=== PATIENT | male | born 1980 | race Caucasian/White ===

== ENCOUNTER 2021-03-20 13:56 | Outpatient (CLI) | payer OTHER, SELFPAY ==
--- NOTE | ~2021-03-20 | MR_ITS ---
EXAMINATION: MR knee LT wo con DATE: 03/20/2021 14:58 INDICATION: Left knee pain. TECHNIQUE: Magnetic resonance imaging (MRI) of the left knee was performed without intravenous contra st. Sequences included axial PD-weighted FS FSE, coronal PD-weighted FSE and PD-weighted FS FSE, sagi ttal PD-weighted FSE, and sagittal T2-weighted FS FSE. COMPARISON: Left knee radiographs 03/03/2021 FINDINGS: Medial compartment: There is a complex tear of posterior horn of medial meniscus. There is partial-thickness cartilage lo ss of tibial condyle, deep at the posterior articular surface where there is mild subchondral edema-l tay marrow signal intensity. There is partial-thickness cartilage loss of femoral condyle, deep at th e central articular surface where there is mild subchondral edema-like marrow signal intensity. There are tiny marginal osteophytes. Lateral compartment: There is a complex tear of body and posterior horn of lateral meniscus. There is partial-thickness ca rtilage loss of tibial condyle, deep at the central and posterior articular surface where there is mi ld subchondral edema-like marrow signal intensity. There is partial-thickness cartilage loss of femor al condyle, deep at the central articular surface where there is moderate subchondral edema-like el ow signal intensity. There are tiny marginal osteophytes. Patellofemoral compartment: There is cartilage surface regularity of patellar medial facet. There is partial-thickness cartilage loss of trochlea, deep at the central articular surface. There are tiny marginal osteophytes. Ligaments and tendons: There is a complete tear of anterior cruciate ligament. Posterior cruciate ligament is intact. Medial collateral ligament and lateral collateral ligament complex are intact. There is mild patellar tendi nopathy. Fluid: There is a small knee joint effusion. There is trace fluid in a Montes's cyst. IMPRESSION: 1. Moderate tricompartmental chondrosis. 2. Tears of medial and lateral menisci. 3. Complete tear of anterior cruciate ligament. 4. Small knee joint effusion. Reviewed, dictated and finalized at location A.
== END 2021-03-20 13:57 | disposition home or self-care (01) ==
PROVIDERS: PCP Internal Medicine; Visit Provider Nurse Practitioner Family
DX: M25.462 Effusion, left knee (principal); S83.242A Other tear of medial meniscus, current injury, left knee, initial encounter; S83.512A Sprain of anterior cruciate ligament of left knee, initial encounter; S83.282A Other tear of lateral meniscus, current injury, left knee, initial encounter; X58.XXXA Exposure to other specified factors, initial encounter
CPT/HCPCS: 73721

== ENCOUNTER 2021-06-17 08:41 | Outpatient (CLI) | payer OTHER, SELFPAY ==
--- NOTE | 2021-06-17 09:00 | ECG_ITS ---
Measurements Intervals [place] Rate: 44 P: 52 MT: 213 QRS: 31 QRSD: 113 T: 32 QT: 414 QTc: 357 Interpretive Statements SINUS BRADYCARDIA WITH FIRST DEGREE AV BLOCK INTRAVENTRICULAR CONDUCTION DELAY NONSPECIFIC ST ELEVATION IN ANTERIOR LEADS BASELINE ARTIFACT- II, III, AVF ABNORMAL ECG Electronically Signed On 06-17-2021 8:59:35 CDT by Hever Rome D.O.
== END 2021-06-17 08:42 | disposition home or self-care (01) ==
LOC: ANHSURGERY 08:46
PROVIDERS: PCP Internal Medicine; Visit Provider Orthopaedic Surgery
DX: Z87.891 Personal history of nicotine dependence (principal); Z01.818 Encounter for other preprocedural examination; I45.9 Conduction disorder, unspecified; I44.0 Atrioventricular block, first degree
CPT/HCPCS: 93005

== ENCOUNTER 2021-06-17 10:48 | Outpatient (CLI) | payer OTHER, SELFPAY ==
--- NOTE | 2021-06-17 11:00 | ECG_ITS ---
Measurements Intervals [place] Rate: 44 P: 60 OR: 205 QRS: 64 QRSD: 107 T: 47 QT: 415 QTc: 359 Interpretive Statements SINUS BRADYCARDIA WITH FIRST DEGREE AV BLOCK ABNORMAL ECG Electronically Signed On 06-17-2021 12:24:44 CDT by Hever Rome D.O.
[2021-06-17 11:05] LABS: Basophils Percent Auto 0.5 % (0.2-1.2); Eosinophils Absolute Auto 0.4 K/mm3 (0-0.3); Eosinophils Percent Auto 9.3 % (0-4.4); Hematocrit 41.1 % (42.0-52.0); Hemoglobin 13.6 g/dL (14.0-18.0); Immature Granulocyte Absolute 0.01 K/mm3 (0.00-0.031); Immature Granulocyte Percent A 0.3 % (0-0.5); Lymphocytes Absolute Auto 1.36 K/mm3 (0.9-3.2); Lymphocytes Percent Auto 34.1 % (18.3-44.2); Mean Corpuscular HGB Conc 33.1 g/dl (32-36); Mean Corpuscular Hemoglobin 29.3 pg (26-34); Mean Corpuscular Volume 88.6 fl (80-100); Mean Platelet Volume 10.4 fl (7.4-10.4); Monocytes Absolute Auto 0.5 K/mm3 (0.1-0.6); Monocytes Percent Auto 11.3 % (2.6-8.5); Neutrophils Absolute Auto 1.8 K/mm3 (1.3-6.7); Neutrophils Percent Auto 44.5 % (45.5-73.1); Platelet Count Result 178 k/mm3 (150-375); Red Blood Count 4.64 M/mm3 (4.6-6.20)
[2021-06-17 11:25] LABS: Alanine Aminotransferase 25 U/L (4-50); Albumin Level 4.1 g/dL (3.5-5.1); Alkaline Phosphatase 55 U/L (38-126); Anion Gap 9 mmol/L (8-16); Aspartate Amino Transferase 29 U/L (17-59); Bilirubin,Total 0.6 mg/dL (0.2-1.3); Blood Urea Nitrogen 17 mg/dL (9-20); Calcium 9.8 mg/dL (8.4-10.2); Carbon Dioxide 27 mmol/L (22-30); Chloride 104 mmol/L (98-107); Estimated Glomerular Filt Rate > 60; Glucose 67 mg/dL (65-110); Potassium 4.4 mmol/L (3.4-5.0); Sodium 140 mmol/L (137-145)
== END 2021-06-17 10:49 | disposition home or self-care (01) ==
PROVIDERS: PCP Internal Medicine; Visit Provider Nurse Practitioner
DX: Z01.818 Encounter for other preprocedural examination (principal); R94.31 Abnormal electrocardiogram [ECG] [EKG]; I44.0 Atrioventricular block, first degree
CPT/HCPCS: 36415; 80053; 85025; 93005

== ENCOUNTER → 2021-06-18 00:20 | Outpatient (CLI) | payer OTHER, SELFPAY ==
[2021-06-18 16:43] LABS: SARS-CoV-2 RNA PCR Negative
== END ==
PROVIDERS: PCP Internal Medicine; Visit Provider Orthopaedic Surgery
DX: Z01.812 Encounter for preprocedural laboratory examination (principal); Z20.822 Contact with and (suspected) exposure to COVID-19
CPT/HCPCS: C9803; U0003; U0005

== ENCOUNTER → 2022-10-11 16:29 | Outpatient (CLI) | payer OTHER, SELFPAY ==
--- NOTE | ~2022-10-11 | XR_ITS ---
XR_[id number]_CR DATE: 10/11/2022 17:09 INDICATION: Left arm anesthesia/numbness. No injury. TECHNIQUE: AP, open-mouth, lateral, swimmer views COMPARISON: None FINDINGS: C1 and C2 are normally aligned and the odontoid process is intact. No fracture or dislocation or locked facet or prevertebral soft tissue swelling. There is moderate degenerative disc disease at C4-5 and C5-6 with posterior spurring at each of these levels, especially C5-6. Moderately severe degenerative disc disease and posterior spurring at C6-7. Moderate degenerative disease at C7-T1. There is uncovertebral joint spurring particularly on the left at C5-6 and bilaterally at C6-7. IMPRESSION: Multilevel degenerative disc disease Uncovertebral joint spurring at C5-6 on the left and bilaterally at C6-7, with expected corresponding encroachment upon the left C6 and bilateral C7 neural foramina Reviewed, dictated and finalized at Location A. Reviewed, dictated and finalized at location A. CUTTER IMPRESSION: Multilevel degenerative disc disease Uncovertebral joint spurring at C5-6 on the left and bilaterally at C6-7, with expected corresponding encroachment upon the left C6 and bilateral C7 neural fo ramina
== END ==
PROVIDERS: PCP Clinical Nurse Specialist; Visit Provider Clinical Nurse Specialist
DX: R20.0 Anesthesia of skin (principal); M50.30 Other cervical disc degeneration, unspecified cervical region
CPT/HCPCS: 72040

== ENCOUNTER 2025-03-26 00:55 | Inpatient (IN) | payer OTHER, SELFPAY ==
[2025-03-26] VITALS (49 sets, daily range): BP systolic 93–137; BP diastolic 67–95; PULSE 65–112; RESP 18–25; TEMP 36–37.9; O2SAT 97–100; BMI 25.0
--- NOTE | ~2025-03-26 | XR_ITS ---
Portable chest x-ray Comparison: 03/29/2025 Clinical History: Respiratory failure Findings: Endotracheal tube and NG tube are in satisfactory positions. There is bibasilar pulmonary edema/atelectasis versus possibly pneumonia. Cardiomediastinal silhouette is stable. Bones and soft tissues are unremarkable. Impression: Basilar pulmonary edema/atelectasis versus possibly pneumonia. Correlate clinically. Support tubes, as above. Reviewed, dictated and finalized at [facility]. Impression: Basilar pulmonary edema/atelectasis versus possibly pneumonia. Correlate clinic ally. Support tubes, as above.
--- NOTE | ~2025-03-26 | XR_ITS ---
Portable chest x-ray Comparison: 03/30/2025 Clinical History: Respiratory failure Findings: Endotracheal tube and NG tube are in satisfactory positions. There is haziness at the left lung base. Right lung clear. Cardiomediastinal silhouette is stable. Bones and soft tissues are unr emarkable. Impression: Left basilar pulmonary edema/atelectasis versus pneumonia. Support tubes, as above. Reviewed, dictated and finalized at location . Impression: Left basilar pulmonary edema/atelectasis versus pneumonia. Support tubes, as above.
--- NOTE | ~2025-03-26 | XR_ITS ---
Portable chest x-ray Comparison: 03/27/2025 at 1:16 AM Clinical History: Respiratory failure Findings: Endotracheal tube and NG tube are in satisfactory positions. Probable mild haziness at the left lung base. Right lung clear. Cardiomediastinal silhouette is stable. Bones and soft tissues ar e unremarkable. Impression: Mild haziness left lung base, nonspecific. Correlate for minimal pulmonary edema or pneumonia. Support tubes, as above. Reviewed, dictated and finalized at location . Impression: Mild haziness left lung base, nonspecific. Correlate for minimal pulmonary leoncio a or pneumonia. Support tubes, as above.
--- NOTE | ~2025-03-26 | XR_ITS ---
Upright portable view of the abdomen Clinical history: NG tube placement Findings: NG tube tip is just above the GE junction. Further advancement by at least 13 cm recommende d. Bowel gas pattern is nonspecific. No evidence for obstruction or free air. No abnormal mass lesion or calcification is seen. Osseous structures are intact. Impression: NG tube tip above the GE junction. Further advancement by at least 13 cm recommended. Reviewed, dictated and finalized at location . Impression: NG tube tip above the GE junction. Further advancement by at least 13 cm recomm ended.
--- NOTE | ~2025-03-26 | CT_ITS ---
Non-contrast Head CT History: Encephalopathy COMPARISON: 03/26/2025 Technique: Axial non-contrast imaging of the brain was performed. Dose reduction technique was used on this scan by utilizing automated exposure control and iterative reconstruction technique. The dose -length product (DLP) was 681.00 mGy-cm. Findings: No acute intracranial abnormality seen. Stable encephalomalacia in the anterior left fronta l lobe with overlying postoperative change of left frontal bone. The ventricles and subarachnoid spa anthony are normal in size. There is bilateral ethmoid and maxillary sinus disease. The remaining visuali zed paranasal sinuses and mastoid air cells are clear. Impression: No acute abnormality. No change from prior exam. 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 Overlying postoperative change of the frontal bones. Reviewed, dictated and finalized at [facility]. Impression: No acute abnormality. No change from prior exam. Stable chronic encephalomalacia of the anterior left frontal lobe, either postt raumatic or postsurgical in nature. Overlying postoperative change of the front al bones.
--- NOTE | ~2025-03-26 | XR_ITS ---
XR chest 1V portable Ordering provider: Luis Fernando Mars History: 44 years Male with . Acute respiratory failure on mechanical ventilatio . Comparison: March 28, 2025 FINDINGS: MEDIASTINUM endotracheal tube is seen 4.5 cm above the aubree. Nasogastric tube is seen extending to the stomach.: The cardiac silhouette is not enlarged. Congestive katy. LUNGS: No effusions or pneumothorax. Opacification the left lung base is seen suggestive of atelectasis versus pneumonia. OTHER: No free air under the diaphragm. Degenerative changes of the spine. IMPRESSION: Left basilar atelectasis versus pneumonia. Reviewed, dictated and finalized at location A.
--- NOTE | ~2025-03-26 | XR_ITS ---
MODIFIED ESOPHAGRAM HISTORY: Aspiration TECHNIQUE: Modified barium esophagram was performed on 04/02/2025. I administered fluoroscopy and perfo rmed the exam with speech pathologist. Patient was seated for lateral fluoroscopic imaging for inges tion of thin liquids, pudding, solids and quantified amounts, followed by thin liquids in uncontrolle d amounts. This was recorded on tape. A single fluoroscopic spot image was also recorded. The DAP for this procedure was 1.2 Gycm2. The amount of fluoroscopy time used during this procedure was 2.2 tony russell. FINDINGS: Oral stage: Adequate function. Pharyngeal stage: Reduced laryngeal elevation and adduction. Reduced tongue base retraction and phary ngeal squeeze. There is vallecular, piriform sinus and pharyngeal wall residue. Laryngeal penetration with aspiration of both thin and thick liquids. Cervical/esophageal stage: Adequate function. IMPRESSION: Pharyngeal dysphagia with laryngeal penetration and aspiration. Please correlate with sp eech pathologist findings and specific feeding recommendations. Reviewed, dictated and finalized at location A. IMPRESSION: Pharyngeal dysphagia with laryngeal penetration and aspiration. Pl ease correlate with speech pathologist findings and specific feeding recommenda tions.
--- NOTE | ~2025-03-26 | CT_ITS ---
CTA brain carotid Ordering provider: Marcin Raza MD History: . AMS . Comparison: March 27, 2025 Technique: CT angiogram head and neck was performed following timed intravenous injection of contrast . Thin slice axial images and reformatted coronal images were obtained. Three dimensional reformatted images of the brain were also obtained using a [employer] workstation. Radiation reduction technique ut ilized.The dose-length product was 1760.93 mGy-cm. 100 mL Omnipaque 350 was given IV. FINDINGS: HEAD: --ANTERIOR AND MIDDLE CEREBRAL ARTERIES AND BRANCHES: Normal caliber and contour. --INTERNAL CAROTID ARTERIES: Normal caliber and contour. --BASILAR ARTERY AND BRANCHES: Normal caliber and contour. No atheromatous disease. --POSTERIOR CEREBRAL ARTERIES: Normal caliber and contour --POSTERIOR COMMUNICATING ARTERIES: Not visualized which is probably related to congenital absence or small size. --ANEURYSM: None visualized. --BRAIN: Encephalomalacia in the left frontal lobe is unchanged. --BONES AND SUPERFICIAL SOFT TISSUES: Postoperative changes in the frontal bones. --PARANASAL SINUSES AND MASTOIDS: Bilateral frontal and maxillary sinus disease is noted. NECK: --RIGHT CERVICAL CAROTID SYSTEM: Normal caliber and contour. Percent stenosis per NASCET criteria is 0%. No carotid dissection. Otherwise, no significant atheromatous disease or stenosis of the cervica l carotid system. --LEFT CERVICAL CAROTID SYSTEM: Normal caliber and contour. Percent stenosis per NASCET criteria is 0%. No carotid dissection. Otherwise, no significant atheromatous disease or stenosis of the cervical carotid system. --VERTEBRAL ARTERIES: Normal caliber and contour. --VISUALIZED AORTIC ARCH AND BRANCHING VESSELS: Normal caliber and contour. No significant atheromato us disease. --SOFT TISSUES: Left lower lobe lung pneumonia is seen --CERVICAL SPINE: Age appropriate degenerative changes. IMPRESSION: 1. Normal CTA head and neck. Percent stenosis per NASCET criteria is 0%. 2. Left lower lobe superior segment pneumonia. Further evaluation advised. 3. Left frontal encephalomalacia with postoperative changes in the frontal bones. Reviewed, dictated and finalized at location A. IMPRESSION: 1. Normal CTA head and neck. Percent stenosis per NASCET criteria is 0%. 2. Left lower lobe superior segment pneumonia. Further evaluation advised. 3. Left frontal encephalomalacia with postoperative changes in the frontal bon es.
--- NOTE | ~2025-03-26 | XR_ITS ---
Upright portable view of the abdomen Clinical history: NG tube placement Findings: NG tube in satisfactory position. Bowel gas pattern is nonspecific. No evidence for obstruc tion or free air. No abnormal mass lesion or calcification is seen. Osseous structures are intact. Impression: NG tube in satisfactory position. Reviewed, dictated and finalized at location . Impression: NG tube in satisfactory position.
--- NOTE | ~2025-03-26 | CT_ITS ---
Non-contrast Head CT History: Overdose Technique: Axial non-contrast imaging of the brain was performed. Dose reduction technique was used on this scan by utilizing automated exposure control and iterative reconstruction technique. The dose -length product (DLP) was 1362.00 mGy-cm. Findings: There is no evidence of intracranial hemorrhage, mass lesion, or definite acute infarct. H ypodense area in the anterior left frontal lobe is present with overlying postoperative change of the frontal bones, suggestive of postoperative versus posttraumatic encephalomalacia. The ventricles and subarachnoid spaces are normal in size. The calvarium appears normal. The visualized paranasal sin uses and mastoid air cells are clear. Impression: No acute abnormality seen. Probable postoperative versus posttraumatic encephalomalacia in the anterior left frontal lobe with o verlying postoperative changes of the bilateral frontal bones. Correlate with surgical history. Reviewed, dictated and finalized at [facility]. Impression: No acute abnormality seen. Probable postoperative versus posttraumatic encephalomalacia in the anterior le ft frontal lobe with overlying postoperative changes of the bilateral frontal b ones. Correlate with surgical history.
--- NOTE | ~2025-03-26 | XR_ITS ---
Portable chest x-ray Comparison: 10/01/2017 Clinical History: Intubation Findings: Endotracheal tube is in satisfactory position. NG tube is in place, and the tracheobronchi al tree, extending into the right lower lobe of the lung. Lungs are otherwise clear. No consolidation or pleural effusion. Cardiomediastinal silhouette is stable. Bones and soft tissues are unremarkabl e. Impression: NG tube in the tracheobronchial tree extending to the right lower lobe. Removal and replacement requi red. ET tube in satisfactory position. Clear lungs otherwise. Reviewed, dictated and finalized at location M. Impression: NG tube in the tracheobronchial tree extending to the right lower lobe. Removal and replacement required. ET tube in satisfactory position. Clear lungs otherwise.
--- NOTE | ~2025-03-26 | XR_ITS ---
EXAMINATION: XR chest 1V portable DATE: 03/28/2025 05:34 INDICATION: Acute respiratory failure on mechanical ventilation TECHNIQUE: frontal view of the chest was obtained. COMPARISON: Chest radiograph and CT dated 03/27/2025 FINDINGS: Endotracheal tube tip 6.3 cm above the aubree. Nasogastric tube with proximal side-port in the body o f the stomach and distal tip collimated below the inferior margin of the [id number]. Patchy airspace opacities the medial aspect of the bilateral lower lung zones consistent with pneumon ia. No pleural effusion or pneumothorax. The cardiomediastinal silhouette is normal. Moderate thoraco lumbar spondylosis. IMPRESSION: 1. Patchy airspace opacities in the bilateral lower lung zones consistent with pneumonia. Reviewed, dictated and finalized at location A.
--- NOTE | ~2025-03-26 | XR_ITS ---
Portable chest x-ray Comparison: 03/26/2025 Clinical History: Ventilator asynchrony Findings: Endotracheal tube and NG tube are in satisfactory positions. There is probable small left pleural effusion. Right lung clear. Cardiomediastinal silhouette is stable. Bones and soft tissues a re unremarkable. Impression: Probable small left pleural effusion. Support tubes, as above. Reviewed, dictated and finalized at location . Impression: Probable small left pleural effusion. Support tubes, as above.
--- NOTE | ~2025-03-26 | XR_ITS ---
MODIFIED ESOPHAGRAM HISTORY: Assess for aspiration. TECHNIQUE: Modified barium esophagram was performed on 04/04/2025. I administered fluoroscopy and perf ormed the exam with speech pathologist. Patient was seated for lateral fluoroscopic imaging for helen stion of thin liquids, pudding, solids and quantified amounts, followed by thin liquids in uncontroll ed amounts. This was recorded on tape. 2 fluoroscopic images were also recorded. The DAP for this pro cedure was 2.111 Gycm2. The amount of fluoroscopy time used during this procedure was 1.3 minutes. FINDINGS: Oral stage: Adequate function. Pharyngeal stage: Reduced laryngeal elevation and adduction. Reduced tongue base retraction. There is vallecular residue. There is laryngeal penetration and aspiration. Cervical/esophageal stage: Adequate function. IMPRESSION: Pharyngeal dysphagia with laryngeal penetration and aspiration. Please correlate with sp eech pathologist findings and specific feeding recommendations. Reviewed, dictated and finalized at location A. IMPRESSION: Pharyngeal dysphagia with laryngeal penetration and aspiration. Pl ease correlate with speech pathologist findings and specific feeding recommenda tions.
--- NOTE | ~2025-03-26 | CT_ITS ---
Clinical Indication: Tachypnea, fever CT Scan of the Chest with Contrast: Technique: Contiguous sections were acquired throughout the chest after intravenous administration of 100 cc of Omnipaque 350. Dose reduction technique was used on this scan by utilizing automated expos ure control and iterative reconstruction technique. The dose-length product (DLP) was 631.82 mGy-cm. Findings: Endotracheal tube and NG tube are in place. There is no evidence of any significant mediastinal, hilar or axillary lymphadenopathy. There is no f illing defect in the pulmonary arterial tree to suggest pulmonary embolus. There is no evidence of ao rtic dissection or aneurysm. There is no evidence of pleural or pericardial effusion. There is extensive bilateral lobe consolidation, left worse than right, suspicious for pneumonia and/ or atelectasis. Images through the upper abdomen reveal no abnormalities. Impression: No evidence of pulmonary embolus, aortic dissection, or aortic aneurysm. Extensive bilateral lower lobe airspace consolidation is suspicious for bilateral pneumonia versus po ssibly atelectasis, left worse than right. Reviewed, dictated and finalized at [facility]. Impression: No evidence of pulmonary embolus, aortic dissection, or aortic aneurysm. Extensive bilateral lower lobe airspace consolidation is suspicious for bilater al pneumonia versus possibly atelectasis, left worse than right.
--- NOTE | ~2025-03-26 | XR_ITS ---
Portable chest x-ray Comparison: 03/26/2025 at 1:24 AM Clinical History: Post NG tube removal Findings: Endotracheal tube in satisfactory position. NG tube has been removed since prior exam. Lloyd gs remain clear. Cardiomediastinal silhouette is stable. Bones and soft tissues are unremarkable. Impression: Clear lungs. ET tube in satisfactory position. Reviewed, dictated and finalized at location . Impression: Clear lungs. ET tube in satisfactory position.
--- NOTE | ~2025-03-26 | XR_ITS ---
Upright portable view of the abdomen Clinical history: NG tube repositioning Findings: NG tube in satisfactory position. Bowel gas pattern is nonspecific. No evidence for obstruc tion or free air. No abnormal mass lesion or calcification is seen. Osseous structures are intact. Impression: NG tube in satisfactory position. Reviewed, dictated and finalized at location . Impression: NG tube in satisfactory position.
--- NOTE | 2025-03-26 01:04 | PC.NURSE ---
Late Entry: Emergent Intubation @ 0105: 30 mg etom 0106: 100 mg Javad 0107: Scope IN/ cords visual 0108: ET Tube 24@ LIP 0109: X-ray ET confirmation 0115: 16FR coleman catheter in place
--- NOTE | 2025-03-26 01:13 | ECG_ITS ---
Test Date: 2025-03-26 02:35:33 Measurements Intervals [place] Rate: 86 P: 25 VA: 177 QRS: 44 QRSD: 112 T: 56 QT: 371 QTc: 445 Interpretive Statements SINUS RHYTHM MODERATE INTRAVENTRICULAR CONDUCTION DELAY [110+ ms QRS DURATION] No previous ECG available for comparison Electronically Signed On 03-27-2025 18:55:37 CDT by Hu Darden
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
--- OUTSIDE RECORDS SUMMARY | 2025-03-26 01:16 | XMS_ITS | Encounter Summary ---
Author Organization [facility] Address [address] [place] [address] Phone Care Team Providers Care Marking Clerk Name Role Phone No, Physician Primary Care Provider [phone] Encounter Details Date Type Department Care Team (Late st Contact Info) Description 09/12/2018 Ophth Exam [facility] Ophthalmology [address] [place] [address] 1[address] [place] [id number] Ronda Whiting MD [address] [place], [place] [id number] Social History Tobacco Use Types Packs/Day Years Used Date Smoking Tobacco: Every Day Cigarettes Smokeless Tobacco: Current Alcohol Use Standard Drinks/Week Comments Yes 0 (1 standard drink = 0.6 oz pur e alcohol) social deuce Sex and Gender Information Value Date Recorded Sex Assigned at Not on file 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 Gender Identity Not on file Sexual Orientation Not on file documented as of this encounter Plan of Treatment Not on file documented as of this encounter Visit Diagnoses Not on filedocumented in this encounter Eye Exam Visual Acuity Right eye Left eye Near sc 20/20 20/200 Near cc 20/20 -2 Tonometry (Tonopen, 11:25 AM) Right eye Left eye Pressure 10 18 Pupils Dark Light Shape React APD Right eye 5.5 2.5 Round Brisk None Left eye 3 MR Extraocular Movement Right eye Left eye Up gaze -- 0 -- -- 0 -- Right/left gaze 0 -- 0 0 -- -0.5 Down gaze -- 0 -- -- 0 -- Neuro/Psych Oriented x3: Yes Mood/Affect: Normal External Exam Right eye Left eye External Normal Tr lagophthalmos . Significantly improved diffuse periorbital swelling and ecchymosis, BRINA easy to elevate, soft to retropulsion, healing forehead wound. Decreased proptosis. Slit Lamp Exam Right eye Left eye Lids/Lashes Normal see above Conjunctiva/Sclera White Tr inferior h emorrhagic chemosis, 1+ diffuse injection Cornea Clear Clear Anterior Chamber Deep Deep, no hyphem a Iris Round and reactive Round, min re active Lens Clear Clear Vitreous Normal Normal Care Teams Marking Clerk Relationship Specialty Start Date End Date No, Physician PCP - General 09/06/18 documented as of this encounter
--- OUTSIDE RECORDS SUMMARY | 2025-03-26 01:16 | XMS_ITS | Encounter Summary ---
Author Organization [facility] Address [address] [place] [address] Phone Care Team Providers Care Lip Of Shank Cutter Name Role Phone No, Physician Primary Care Provider [phone] Encounter Details Date Type Department Care Team (Late st Contact Info) Description 09/11/2018 Ophth Exam [facility] Ophthalmology [address] [place] [address] 1st [place] [id number] Ronda Whiting MD [address] [place], [place] [id number] Social History Tobacco Use Types Packs/Day Years Used Date Smoking Tobacco: Every Day Cigarettes Smokeless Tobacco: Current Alcohol Use Standard Drinks/Week Comments Yes 0 (1 standard drink = 0.6 oz pur e alcohol) social deuce Sex and Gender Information Value Date Recorded Sex Assigned at Not on file 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 Gender Identity Not on file Sexual Orientation Not on file documented as of this encounter Plan of Treatment Not on file documented as of this encounter Visit Diagnoses Not on filedocumented in this encounter Eye Exam Visual Acuity Right eye Left eye Near sc 20/20 20/20 Tonometry Right eye Left eye Pressure 14 Pupils Dark Light Shape React APD Right eye 4 3 Round Brisk None Left eye 3.5 3.5 Round Minimal None Extraocular Movement Right eye Left eye Up gaze -- 0 -- -- -1.5 -- Right/left gaze 0 -- 0 -1 -- -1 Down gaze -- 0 -- -- -1 -- Neuro/Psych Oriented x3: Yes Mood/Affect: Normal External Exam Right eye Left eye External Normal 1-2mm lagophthal mos. Significantly improved diffuse periorbital swelling and ecchymosis, BRINA easy to elevate, soft to retropulsion, healing forehead wound. Decreased proptosis and hypoglobus. Slit Lamp Exam Right eye Left eye Lids/Lashes Normal see above Conjunctiva/Sclera White 1+ inferior h emorrhagic chemosis, 1+ diffuse injection Cornea Clear Clear Anterior Chamber Deep Deep, no hyphem a Iris Round and reactive Round, min re active Lens Clear Clear Vitreous Normal Normal Care Teams Lip Of Shank Cutter Relationship Specialty Start Date End Date No, Physician PCP - General 09/06/18 documented as of this encounter
--- OUTSIDE RECORDS SUMMARY | 2025-03-26 01:16 | XMS_ITS | Encounter Summary ---
Author Organization [facility] Address [address] [place] [address] Phone Care Team Providers Care Historic Interpreter Name Role Phone No, Physician Primary Care Provider [phone] Encounter Details Date Type Department Care Team (Late st Contact Info) Description 09/08/2018 Ophth Exam [facility] Ophthalmology [address] [place] [address] 1st [place] [phone] Ronda Whiting MD [address] [place], [place] [id number] Social History Tobacco Use Types Packs/Day Years Used Date Smoking Tobacco: Every Day Cigarettes Smokeless Tobacco: Current Alcohol Use Standard Drinks/Week Comments Yes 0 (1 standard drink = 0.6 oz pur e alcohol) social deuce Sex and Gender Information Value Date Recorded Sex Assigned at Not on file 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 Gender Identity Not on file Sexual Orientation Not on file documented as of this encounter Plan of Treatment Not on file documented as of this encounter Visit Diagnoses Not on filedocumented in this encounter Eye Exam Visual Acuity Right eye Left eye Near sc 20/70 Near cc 20/25 Tonometry (Tonopen, 11:07 PM) Right eye Left eye Pressure 9 20 Pupils Dark Light Shape React APD Right eye 3 2 Round Brisk None Left eye 2.5 2.5 Round Minimal None Visual Ha (Counting fingers) Right eye Left eye Full Full Extraocular Movement Right eye Left eye Up gaze -- 0 -- -- -3 -- Right/left gaze 0 -- 0 -2.5 -- -3 Down gaze -- 0 -- -- -3.5 -- Neuro/Psych Oriented x3: Yes Mood/Affect: Normal Color Right eye Left eye Savana External Exam Right eye Left eye External Normal Diffuse periorbi angelina swelling and ecchymosis, moderate resistance to retropulsion, healing forehead wound. Left globe appears more proptotic with exophthalmos and hypoglobus Slit Lamp Exam Right eye Left eye Lids/Lashes Normal see above Conjunctiva/Sclera White 3+ inferior c hemosis Cornea Clear Clear Anterior Chamber Deep Deep, no hyphem a Iris Round and reactive Round, min re active Lens Clear Clear Vitreous Normal Normal Care Teams Historic Interpreter Relationship Specialty Start Date End Date No, Physician PCP - General 09/06/18 documented as of this encounter
--- OUTSIDE RECORDS SUMMARY | 2025-03-26 01:16 | XMS_ITS | Encounter Summary ---
Author Organization [facility] Address [address] [facility] [address] [place] [address] Phone Care Team Providers Care Industrial Hygiene Engineer Name Role Phone No, Physician Primary Care Provider Encounter Details Date Type Department Care Team (Late st Contact Info) Description 2018 Ophth Exam [facility] Ophthalmology [address] [place] [address] 1st [place] [address] Rosalinda Ennis MD PhD [address] [address] Social History Tobacco Use Types Packs/Day Years Used Date Smoking Tobacco: Every Day Cigarettes Smokeless Tobacco: Current Alcohol Use Standard Drinks/Week Comments Yes 0 (1 standard drink = 0.6 oz pur e alcohol) social tripathi Sex and Gender Information Value Date Recorded Sex Assigned at Not on file 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 Visual Ha Right eye Left eye Restrictions Partial outer superi or temporal, superior nasal deficiencies Total superior temporal, superior nasal deficiencies Extraocular Movement Right eye Left eye Up gaze 0 0 0 -- -1.5 -- Right/left gaze 0 -- 0 0 -- 0 Down gaze 0 0 0 -- 0 -- OS: mild exophthalmos and hypotropia Neuro/Psych Oriented x3: Yes Mood/Affect: Normal Dilation Both eyes: 1.0% Mydriacyl, 2 .5% Phenylephrine @ 8:22 AM External Exam Right eye Left eye External Normal Mild exophthalmo s and hypotropia with periorbital soft tissue swelling, a superficial skin loss on the left forehead not involving eyelid Slit Lamp Exam Right eye Left eye Lids/Lashes Normal Mild eyelid swel ling with reactive ptosis Conjunctiva/Sclera White White Cornea Clear Clear Anterior Chamber Deep and quiet Deep and quiet Iris Round and reactive Round and slo wly reactive, mildly larger than the Lens Clear Clear Vitreous Normal Normal Fundus Exam Right eye Left eye Disc Normal retinal commotio involving ONH, no disc heme or swelling C/D Ratio 0.3 0.35 Macula Normal retinal commotio with temporal arcades involving macula, no heme, Retinal commotio Vessels Normal Normal Periphery Normal Normal Care Teams Industrial Hygiene Engineer Relationship Specialty Start Date End Date No, Physician PCP - General 09/06/18 documented as of this encounter
--- OUTSIDE RECORDS SUMMARY | 2025-03-26 01:16 | XMS_ITS | Patient Health Record ---
Author Organization [facility] Address [address] [place] [address] Care Team Providers Care Teacher Advisor Name Role Phone Navdeep Camacho Primary Care Provider [phone] Therapeutic Proteins, [facility] Unavailable U navailable Reason For Referral No Information Plan Of Treatment No Information Insurance Providers Payer Name Payer Address Payer Phone Subscriber Number Group Number Insured Name Patient Relationship to Insured Coverage Start Date Coverage End Date [facility] Att[facility] Claims Department [address] [place] [address] [id number] Ephraim Reilly Self - patient is the insured 9
--- OUTSIDE RECORDS SUMMARY | 2025-03-26 01:16 | XMS_ITS | Encounter Summary ---
Author Organization [facility] Address [address] [place] [address] Phone Care Team Providers Care Pack Out Operator Name Role Phone No, Physician Primary Care Provider [phone] Encounter Details Date Type Department Care Team (Late st Contact Info) Description 09/09/[address] 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 Gender Identity Not on file Sexual Orientation Not on file documented as of this encounter Plan of Treatment Not on file documented as of this encounter Visit Diagnoses Not on filedocumented in this encounter Eye Exam Visual Acuity Right eye Left eye Near sc 20/100 Near cc 20/70 Tonometry (Tonopen, 5:43 PM) Right eye Left eye Pressure 14 Pupils Dark Light Shape React APD Right eye 3 2 Round Brisk None Left eye 2.5 2.5 Round Minimal None Extraocular Movement Right eye Left eye Up gaze -- 0 -- -- -3 -- Right/left gaze 0 -- 0 -2.5 -- -2.5 Down gaze -- 0 -- -- -4 -- Neuro/Psych Oriented x3: Yes Mood/Affect: Normal External Exam Right eye Left eye External Normal 5mm lagophthalmo s. Diffuse periorbital swelling and ecchymosis, BRINA easier to elevate, decreased resistance to retropulsion, healing forehead wound. Left globe appears less proptotic with less exophthalmos and hypoglobus Slit Lamp Exam Right eye Left eye Lids/Lashes Normal see above Conjunctiva/Sclera White 3-4+ inferior chemosis Cornea Clear Clear Anterior Chamber Deep Deep, no hyphem a Iris Round and reactive Round, min re active Lens Clear Clear Vitreous Normal Normal Care Teams Pack Out Operator Relationship Specialty Start Date End Date No, Physician PCP - General 09/06/18 documented as of this encounter
--- OUTSIDE RECORDS SUMMARY | 2025-03-26 01:16 | XMS_ITS | Encounter Summary ---
Author Organization [facility] Address [address] [place] [address] Phone Care Team Providers Care Legal Instruments Examiner Name Role Phone No, Physician Primary Care Provider [phone] Encounter Details Date Type Department Care Team (Late st Contact Info) Description 09/09/2018 Ophth Exam [facility] [address] [place] [address] 1st [place] [phone] Ronda Whiting MD [address] [place], [place] [id number] Social History Tobacco Use Types Packs/Day Years Used Date Smoking Tobacco: Every Day Cigarettes Smokeless Tobacco: Current Alcohol Use Standard Drinks/Week Comments Yes 0 (1 standard drink = 0.6 oz pur e alcohol) social deuce Sex and Gender Information Value Date Recorded Sex Assigned at Not on file 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 Gender Identity Not on file Sexual Orientation Not on file documented as of this encounter Plan of Treatment Not on file documented as of this encounter Visit Diagnoses Not on filedocumented in this encounter Eye Exam Visual Acuity Right eye Left eye Near sc 20/200 Near cc NI Tonometry (Tonopen, 9:19 AM) Right eye Left eye Pressure 12 28 Pupils Dark Light Shape React APD Right eye 3 2 Round Brisk None Left eye 2.5 2.5 Round Minimal None Extraocular Movement Right eye Left eye Up gaze -- 0 -- -- -3 -- Right/left gaze 0 -- 0 -3 -- -3 Down gaze -- 0 -- -- -4 -- Neuro/Psych Oriented x3: Yes Mood/Affect: Normal External Exam Right eye Left eye External Normal 5mm lagophthalmo s. Diffuse periorbital swelling and ecchymosis, BRINA difficult to elevate, moderate resistance to retropulsion, healing forehead wound. Left globe appears more proptotic with exophthalmos and hypoglobus Slit Lamp Exam Right eye Left eye Lids/Lashes Normal see above Conjunctiva/Sclera White 3-4+ inferior chemosis Cornea Clear Clear Anterior Chamber Deep Deep, no hyphem a Iris Round and reactive Round, min re active Lens Clear Clear Vitreous Normal Normal Exophthalmometry (Base: 110 mm) Right eye Left eye 18 mm 26 mm Care Teams Legal Instruments Examiner Relationship Specialty Start Date End Date No, Physician PCP - General 09/06/18 documented as of this encounter
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
--- OUTSIDE RECORDS SUMMARY | 2025-03-26 01:16 | XMS_ITS | Encounter Summary ---
Author Organization [facility] Address [address] [place] [address] Phone Care Team Providers Care Hot Top Liner Helper Name Role Phone No, Physician Primary Care Provider [phone] Encounter Details Date Type Department Care Team (Late st Contact Info) Description 09/10/2018 Ophth Exam [facility] [address] [place] [address] 1st [place] [phone] Ronda Whiting MD [address] [place], [place] [phone] Social History Tobacco Use Types Packs/Day Years Used Date Smoking Tobacco: Every Day Cigarettes Smokeless Tobacco: Current Alcohol Use Standard Drinks/Week Comments Yes 0 (1 standard drink = 0.6 oz pur e alcohol) social deuce Sex and Gender Information Value Date Recorded Sex Assigned at Not on file 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 Gender Identity Not on file Sexual Orientation Not on file documented as of this encounter Plan of Treatment Not on file documented as of this encounter Visit Diagnoses Not on filedocumented in this encounter Eye Exam Visual Acuity Right eye Left eye Near sc 20/200 Near cc 20/60 Ointment placed in left eye recently Tonometry (Tonopen, 12:17 PM) Right eye Left eye Pressure 15 Pupils Dark Light Shape React APD Right eye 4.5 3 Round Brisk None Left eye 4 4 Irregular Minimal None Extraocular Movement Right eye Left eye Up gaze -- 0 -- -- -2 -- Right/left gaze 0 -- 0 -2 -- -2 Down gaze -- 0 -- -- -3 -- Neuro/Psych Oriented x3: Yes Mood/Affect: Normal External Exam Right eye Left eye External Normal 4mm lagophthalmo s. Improved diffuse periorbital swelling and ecchymosis, BRINA easy to elevate, decreased resistance to retropulsion, healing forehead wound. Left globe is less proptotic with less exophthalmos and hypoglobus Slit Lamp Exam Right eye Left eye Lids/Lashes Normal see above Conjunctiva/Sclera White 4+ inferior h emorrhagic chemosis Cornea Clear Clear Anterior Chamber Deep Deep, no hyphem a Iris Round and reactive Round, min re active Lens Clear Clear Vitreous Normal Normal Exophthalmometry (Base: 110 mm) Right eye Left eye 20 mm 26.5 mm Care Teams Hot Top Liner Helper Relationship Specialty Start Date End Date No, Physician PCP - General 09/06/18 documented as of this encounter
--- OUTSIDE RECORDS SUMMARY | 2025-03-26 01:16 | XMS_ITS | Clinical Summary ---
Author Organization [facility] [employer] Address [address] [place] [address] Care Team Providers Care Mission Systems Engineer Name Role Phone Tk Bennett DO Primary Care Provider Source Comments [facility] [employer]non-owned Affiliates and Associated Physician Practices is amultiple site organization consisting of ambulatory clinics and hospital sitesin [place], [place], [place] and [place]. This disclosure is being madepursuant to the Care Everywhere program and may not contain all information available regarding this patient. Last updated 18.[facility] [employer] Allergies No known active allergies Medications * Be aware that medications may not be up to date on this document. Alwaysverify current medications with the patient. azelastine (ASTELIN) 0.1 % nasal spray Mobile 1 (one) spray into each nostril 2 times daily 3 Inhaler 4 1 Active fluticasone propionate (FLONASE) 50 MCG/ACT nasal spray Mobile 2 (two) sprays into each nostril once daily 48 g 4 1 Active EPINEPHrine (EPIPEN) 0.3 MG/0.3ML auto-injector pen Inject 0.3 mL into muscle as needed for Anaphylaxis 0.3 mL 1 Active Additional Information Patient not taking.Reported on 09/25/2023 amphetamine-dext roamphetamine (Adderall) 10 MG tabletIndication s:Hypersomnia due to medical condition Take 1 (one) tablet by mouth every morning 30 tablet 4 Active loratadine (Claritin) 10 MG tabletIndication s:Allergic rhinitis, unspecified seasonality, unspecified trigger Take 1 (one) tablet by mouth once daily as needed for Runny Nose or Allergies 4 Active Active Problems Problem Noted Date Diagnosed Date Prediabetes 01/25/2022 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 Decreased vision 09/27/2018 Overview (04/22/2020): Last Assessment & Plan: Difficult assessment as patient actively intoxicated on [...] both eyes (OU) or sooner PRN Open frontal sinus fracture 2018 [place] (obstructive sleep apnea) 09/06/2018 Memory problem Inadequate sleep hygiene Excessive daytime sleepiness Chronic fatigue Immunizations Immunization Administration Dates Next Due TDAP (7yrs+) 09/06/2018 Family History Medical History Relation Name Comments Arthritis - Rheumatoid Father Anxiety Disorder Mother Cancer - Skin, Non Melanoma Mother Depression Mother Relation Name Status Comments Father Alive Mother Alive Social History Tobacco Use Types Packs/Day Years Used Date Smoking Tobacco: Former Cigarettes 0.5 28 1 - 2019 Smokeless Tobacco: Never Tobacco Cessation:Counseling Given: No Comments:.5-1 ppd Alcohol Use Standard Drinks/Week Comments Not Currently 0 (1 standard drink = 0.6 oz pur e alcohol) Socially in past Overall Financial Resource Strain (CARDIA) Answe r Date Recorded How hard is it for you to pa y for the very basics like food, housing, medical care, and heating? Not hard at all 04/22/2020 Hunger Vital Sign Answer Date Recorded Within the past 12 months, y ou worried that your food would run out before you got the money to buy more. Never true 04/22/20 20 Within the past 12 months, t he food you bought just didn't last and you didn't have money to get more. Never true 04/22/2020 PRAPARE - Transportation Answer Date Re corded In the past 12 months, has l ack of transportation kept you from medical appointments or from getting medications? No 03/27 In the past 12 months, has l ack of transportation kept you from meetings, work, or from getting things needed for daily living? No 04/22/2020 Education Answer Date Recorded What is the highest level of school you have completed or the highest degree you have received? 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 Not on file Not on file Not on file Last Filed Vital Signs Vital Sign Reading Time Taken Comments Blood Pressure 119/75 03/11/2024 10:17 AM CDT Pulse 67 03/11/2024 10:17 AM CDT Temperature 37 C (98.6 F) 03/18/2021 5:29 PM CDT Respiratory Rate 18 03/18/2021 5:29 PM CDT Oxygen Saturation 97% 03/18/2021 5:29 PM CDT Inhaled Oxygen Concentration - - Weight 99.3 kg (219 lb) 03/11/2024 10:17 AM CDT Height 182.9 cm (6') 03/11/2024 10:17 AM CDT Body Mass Index 29.7 03/11/2024 10:17 AM CDT Plan of Treatment Health Maintenance Due Date Last Done Comments LIPID TESTING 1980 HIV SCREENING 1995 HEPATITIS C SCREENING 09/03/1998 HEPATITIS B VACCINE (1 of 3 - 19+ 3-dose series) 1999 COVID-19 VACCINE ( season) 2024 DEPRESSION SCREENING 11/26/2024 INFLUENZA VACCINE (Season Ended) 2025 SCREENING FOR DIABETES 01/10/2027 , 01/10/2024, 01/25/2022, Additional history exists DTAP/TDAP/TD VACCINES (2 - Td or Tdap) 09/06/2028 09/06/2018 ZOSTER VACCINE (1 of 2) 2030 HIB VACCINE Aged Out No longer eligi ble based on patient's age to complete this topic HPV VACCINE Aged Out No longer eligi ble based on patient's age to complete this topic MENINGOCOCCAL (Group B) VACCINE SHARED DECISION-MAKING Aged Out No longer eligible based on patient's age to complete this topic MENINGOCOCCAL GROUPS A/C/Y/W VACCINE Aged Out No longer eligible based on patient's age to complete this topic PNEUMOCOCCAL VACCINE Aged Out No long er eligible based on patient's age to complete this topic Procedures Procedure Name Priority Date/Time Associated Diagnosis Comments HEMOGLOBIN A1C Routine 01/10/2024 1:10 PM CONCRETE MIXER OPERATOR HELPER Excessive daytime sleepiness Chronic fatigue Obesity (BMI 30-39.9) from Last 3 Months or Most Recently Relevant to Health Maintenance Results * HEMOGLOBIN A1C (01/10/2024 1:10 PM CONCRETE MIXER OPERATOR HELPER) Hemoglobin A1c 5.6 4.8 - 5.6 % [facility] INSURANCE BILL Comment: . Prediabetes: 5.7 - 6.4 Diabetes: >6.4 Glycemic control for adults with diabetes: <7.0 Blood BLOOD SPECIMEN / Unknown 01/10/2024 1:10 PM CONCRETE MIXER OPERATOR HELPER 01/10/2024 Narrative Resulting Agency Comment [facility] [address] [id number] Gladys Degroot APPASTOR-DELIVERY COORDINATOR LAB - CHEMISTRY ORDERABLES Final Result [facility] INSURANCE BILL [address] [place] [address] from Last 3 Months or Most Recently Relevant to Health Maintenance Care Teams Mission Systems Engineer Relationship Specialty Start Date End Date Tk Bennett DO PCP - General Internal Medicine 01/18/21
--- OUTSIDE RECORDS SUMMARY | 2025-03-26 01:16 | XMS_ITS | Clinical Summary ---
Author Organization [facility] Address [address] [place] [address] Care Team Providers Care [facility] Name Role Phone Unavailable Primary Care Provider Unavailabl e Social History Tobacco Use Types Packs/Day Years Used Date Smoking Tobacco: Never Assessed Sex and Gender Information Value Date Recorded Sex Assigned at Not on file Legal Sex Male 8:18 PM CDT Gender Identity Not on file Sexual Orientation Not on file Plan of Treatment Health Maintenance Due Date Last Done Comments Annual Physical 1983 Hepatitis C 1998 DTaP, Tdap and Td Vaccines ( 1 - Tdap) 1999 Hepatitis B Vaccines (1 of 3 - 19+ 3-dose series) 1999 COVID-19 Vaccine (2023-2 5 season) 2024 HPV Vaccines Aged Out No longer eligi ble based on patient's age to complete this topic Meningococcal B Vaccine Aged Out No l onger eligible based on patient's age to complete this topic Meningococcal Vaccine Aged Out No marguerite nyasia eligible based on patient's age to complete this topic Pneumococcal Vaccine: Pediat rics (0 to 5 Years) and At-Risk Patients (6 to 49 Years) Aged Out No longer eligible b ased on patient's age to complete this topic RSV Immunizations Under 20 Months Aged Out No longer eligible based on patient's age to complete this topic
--- OUTSIDE RECORDS SUMMARY | 2025-03-26 01:16 | XMS_ITS | Continuity of Care Document ---
Author Organization [facility] Address [address] [place] [address] Phone Care Team Providers Care Assembler Arranger Name Role Phone Delong OD, Heriberto Unavailable Unavailable Procedures Procedure Date No Charge Contact Lens Check No Charge Contact Lens Check No Charge Contact Lens Check CL Replacement - Vistakon Disp W/BW Soft Tax - Medical Eye Exam & Treatment Refraction Vision Svcs Frames Purchases SV Hi Index Sphcyl +/-4.25 - +/-7, .12-2 Lens-Index>1.66Plas;>1.80Glas 7 Anti-reflective Coating Advance Directives Directive Yes / No Effective Date File Name No Information Encounters Encounter Description Practice Location Reason(s) For Visit Diagnoses Date Provider Providers Copied on Encounter [facility], [address] [place] [address] [address], [place], [place], [id number], [place] tel:[phone] [facility] [place] [facility] No Information 200 8 Delong OD Heriberto. [address], [place], [address], [place]. tel:[phone] [facility], [address] [place] [address] [address], [place], [place], [id number], [place] tel:[phone] [facility] No Information 9-200 8 Delong OD Heriberto. [address] [place] [address] , [address], [place], [address], [place]. tel:[phone] [facility] Eye [facility], [address] [place] [address] [address], [place], [place], [id number], tel:[phone] [facility] No Information 2-200 8 Delong OD Heriberto. [address] [place] [address] , [address], [place], [address], [place]. tel:[phone] [facility], [id number] [place] [address] [address], [place], [place], [id number], [place] tel:[phone] [facility] No Information 6-200 8 Delong OD Heriberto. [address] [place] [address] , [address], [place], [address], [place]. tel:[phone] [facility], [address] [place] [address] [address], [place], [place], [id number], [place] tel:[phone] [facility] No Information 5[address] [facility] [employer] . [address] [facility], [address], [place], [place], [id number], [place]. tel:[phone] Referring Provider: Heriberto Lay, [address] [place] [address] [address], [place], [address]. tel:[phone] saez Provider: Dov Garibay [address] [place] [address], [place], [address]. tel:[phone] Family History Family Member Type Diagnosis Age At Onset No Information Payers Payer name Insurance type Covered democrat ID Authoriza tion(s) No Information Social History Type Description Quantity Date Captured Comments Sex Male Smoking Status No Information Chief Complaint And Reason For Visit No Information Reason For Referral Reason For Referral No Information History Of Present Illness Encounter Date Complaint History Of Prese nt Illness No Information Functional Status Date Functional Assessmen t No Information Instructions Date Instruction Additional Infor mation No Information Assessments Type Assessment Date No Information Patient Care Teams Name Effective Dates (start - stop) Status Members No Information
--- OUTSIDE RECORDS SUMMARY | 2025-03-26 01:16 | XMS_ITS | Encounter Summary ---
Author Organization [facility] Address [address] [facility] [address] [place] [address] Phone Care Team Providers Care Distresser Name Role Phone No, Physician Primary Care Provider [phone] Encounter Details Date Type Department Care Team (Late st Contact Info) Description 2018 Ophth Exam [facility] Ophthalmology [address] [place] [address] [address] [place] [address] Rosalinda Ennis MD PhD [address] [address] Social History Tobacco Use Types Packs/Day Years Used Date Smoking Tobacco: Every Day Cigarettes Smokeless Tobacco: Current Alcohol Use Standard Drinks/Week Comments Yes 0 (1 standard drink = 0.6 oz pur e alcohol) social deuce Sex and Gender Information Value Date Recorded Sex Assigned at Not on file Legal 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 Gender Identity Not on file Sexual Orientation Not on file documented as of this encounter Plan of Treatment Not on file documented as of this encounter Visit Diagnoses Not on filedocumented in this encounter Eye Exam Visual Acuity (Near card) Right eye Left eye Near sc 20/30 20/40 Tonometry (Tonopen, 10:23 PM) Right eye Left eye Pressure 8 14 Pupils Dark Light Shape React APD Right eye 3 2.5 Round Brisk None Left eye 2.5 2.5 Round Minimal None Visual Ha Unable to perform due to poor cooperation (sleepy) Extraocular Movement Right eye Left eye Up gaze -- -1 -- -- -1 -- Right/left gaze 0 -- 0 0 -- 0 Down gaze -- -- -- -- -2 -- Neuro/Psych Oriented x3: Yes Mood/Affect: Normal Dilation Holding dilation for per primary team External Exam Right eye Left eye External [...] the Lens Clear Clear Vitreous Normal Normal Care Teams Distresser Relationship Specialty Start Date End Date No, Physician PCP - General 09/06/18 documented as of this encounter
--- OUTSIDE RECORDS SUMMARY | 2025-03-26 01:17 | XMS_ITS | CONTINUITY OF CARE DOCUMENT ---
Author Name cheyanne edward Address Unknown Organization [facility] Address [address] [place] [address] Phone [phone] Care Team Providers Care Lead Cook Name Role Phone Daron LOMBARDI, Yaneth Unavailable KAREN LOMBARDI, BEA POLK Unavailable [phone] RUMA ZUÑIGA MD Unavailable [phone] INSURANCE PROVIDERS Payer name Policy type / Coverage type [place] red green party ID HE[employer] AND FAMILY SERVICES Medicaid 1 [id number]
[2025-03-26] MEDS: MIDAZOLAM 100MG/NS 100ML(*CRX) 100 MG/100 ML BAG IV CONT (01:24)
--- NOTE | 2025-03-26 01:36 | ED.OVERDOSE ---
HPI - Overdose General Chief Complaint: Overdose Stated Complaint: RESTLESS, POSSIBLE OD Time Seen by Provider: 03/26/25 01:12 History of Present Illness HPI Narrative: 44-year-old male with no significant pertinent past medical history presenting to the emergency department after suspected overdose. Patient was in police custody and on his weighted mcc when he became somnolent. He received 2 mg of intranasal Narcan and awoke. He states he did take 2 ?beans? of fentanyl. Patient had a relapse of somnolence and altered mental status where he received an additional 1 mg of IV Versed. Patient arrives in physical and respiratory distress. He is diaphoretic, pupils are very fixed and dilated at 6 mm bilaterally, he is responsive to his name, breathing heavily, distended neck veins, diaphoretic and drenching in sweat. He is not able to sit still for evaluation, multiple members of staff for called to bedside to restrain the patient. IV was established by EMS. Collateral formation is limited, patient is not able to provide any history at this time. Patient brought back in to room 8 in distress. Related Data Home Medications ?Medication ?Instructions ?Recorded ?Confirmed ?Last Taken ?Type No Home Medications 12/01/20 07/08/21 Unknown History Allergies Allergy/AdvReac Type Severity Reaction Status Date / Time No Known Allergies Allergy Mild Verified 10/11/22 15:54 Review of Systems Review of Systems: As reviewed above in HPI [facility] Past Medical History Medical History ACL tear Degenerative joint disease of knee Medial meniscus tear Left knee pain History of nasal polyp Chronic sinusitis Lymphadenopathy Fatigue Obesity (BMI 35.0-39.9 without comorbidity) Lymphadenitis Sleep apnea Surgical History Surgical History H/O brain surgery 2018 Family History Family History Mother Skin cancer Father Rheumatoid arthritis Grandparent Pancreatic cancer Social History Social History Smoking packs per day: 1 Smoking cigarettes per day: 20.0 Years smoked: 20 Smoking pack-years: 20.00 Smoking status: Former smoker Smoking end date: 09/26/18 Alcohol intake: never Lack of Transportation: YES Lack of Food: Never True Current Housing: I Have Housing Concerned About Future Housing: No Difficulty Paying Gas/Electric Bills: No Difficulty Paying for Meds: No Currently Unemployed: No Education: High School Diploma/GED Difficulty w/ Childcare or Family Care: No Living arrangements: alone Spiritual care concerns: No Exam Narrative: GENERAL: Diaphoretic, responsive to name, very agitated and combative, dilated pupils HEAD: [Normocephalic, atraumatic.] EYES: Dilated 6 mm pupils, conjunctival injection ENT: Nares clear, no rhinorrhea or epistaxis. Mucous membranes moist. JVD bilaterally NECK: Supple. CHEST: Coarse bibasilar breath sounds, tachypneic HEART: Tachycardic with regular rhythm. No murmur heard. [Normal peripheral pulses.] ABDOMEN: [Soft, nondistended], [nontender], [No rigidity or guarding] EXTREMITIES: Normal range of motion. [No edema.] SKIN: Warm, dry, no rash. NEURO: Moving all extremities, alert to name PSYCH: Agitated, combative not redirectable Course Vital Signs Vital signs: Vital Signs Pulse Rate 112 H 03/26/25 01:24 Respiratory Rate 18 03/26/25 01:24 Temperature 37.0 C 03/26/25 03:21 Pulse Rate 85 03/26/25 03:21 Respiratory Rate 18 03/26/25 03:21 Blood Pressure 100/68 03/26/25 03:21 Pulse Oximetry 98 03/26/25 03:33 Oxygen Delivery Mechanical Ventilation 03/26/25 03:33 Procedures EJ/Peripheral Line Arm R: EJ/Peripheral Line Date: 03/26/25 EJ/Peripheral Line Time: 01:41 Time Out Performed: Yes Skin Cleansed in Sterile Fashion: Yes Ultrasound Guided: No Size (gauge): 18 IV Secured and Dressing Applied: Yes Patient Tolerated Procedure: well and no complications Intubation Intubation #1: Intubation Date: 03/26/25 Intubation Time: 01:10 Time out performed: Yes sedative: Etomidate Mg Given: 30 paralytic: Rocuronium Mg Given: 100 Laryngoscope: fiber optic video scope Tube Size (cm): 7.5 Method of Intubation: orotracheal Number of Attempts: 1 Tube Secured Depth (cm): 23 Tube Secured Location: lips Tube Placement Confirmation: visualized tube passing through cords, equal breath sounds bilaterally, no breath sounds over epigastrium and confirmation by capnometry Patient Tolerated Procedure: well and no complications Intubation Complications: none MDM - Overdose MDM Narrative Medical decision making narrative: 44-year-old male, no pertinent past medical history, presents to the emergency department in physical and respiratory distress. Suspected drug use today, received Narcan in route by EMS but patient is sympathomimetic in his toxidrome at this time. He has fixed and dilated 6 mm pupils, conjunctival injection, drenching in sweat, altered combative and shaking all his extremities vigorously with great strength. Patient requires 8 staff members to hold him down and IV was established. He received 2 mg aliquots of intravenous Versed x6 doses without any response in his agitation and combativeness. He remains alert to his name only and very labored with his respirations. JVD bilaterally, coarse breath sounds, tachycardic pulse. Decision was made to intubate him at this juncture as he had received an intubating dose of Versed without any response and his agitation and he is too combative for appropriate assessment and with his respiratory efforts at this time he needs airway protection. 30 mg of IV etomidate was given as well as 100 mg of IV rocuronium with appropriate sedation and paralytic response. Intubation went smoothly. OG tube was attempted several times but either went displaced into the lung or kept coiling in his esophagus. This was removed and repeat x-ray shows appropriate position of the endotracheal tube. Suspicion presently is for sympathomimetic toxidrome verses severe response to opiate withdrawal versus intracranial process. Unknown if there is any trauma today and unknown exactly what he ingested. Urine drug screen, toxicological panel with salicylates Tylenol and alcohol obtained. CBC, CMP, EKG, chest x-ray, CT of the head, VBG ordered. Ventilator settings of rate of 18, tidal volume 400, 50% FiO2, 5 of PEEP. Versed drip initiated for adequate sedation. Patient was still becoming agitated and awake therefore propofol infusion started. Vital signs have normalized. He is sedated and mechanically ventilated this time. VBG was appropriate without any concerning pH. Workup shows an KAN, mildly elevated CPK, negative lactic. No leukocytosis, slight anemia 12.6. No bleeding. Normal platelet count. TSH is normal. Urine drug screen shows amphetamines which is consistent with his sympathomimetic toxidrome. Urinalysis is unremarkable for infection but does have some blood. Sullivan catheter was difficult to according to nursing staff. Alcohol level negative, salicylates and Tylenol level negative. EKG after sedation shows sinus rhythm, no ST segment elevations, depressions or dysrhythmia. Chest x-ray shows appropriate positioning of the ET tube with no acute findings. Head CT shows no hemorrhage, hydrocephalus, herniation. Previous frontal calvarial fractures seen as well as frontal encephalomalacia. Spoke to the machine hand Dr. Mars and informed them of patient's presentation, sympathomimetic toxidrome and need for copious amounts of sedation and mechanical ventilation. Spoke to the hospitalist currently being covered by the midlevel provider Hailey who accepted the patient to the ICU at this time. Patient transported upstairs without further issue. Medical Records Attestation: I reviewed the patient's medical records. Lab Data Attestation: I reviewed the patient's lab results. 03/26/25 01:36 03/26/25 01:36 Labs: Lab Results 03/26/25 Range/Units 01:36 WBC 7.0 (4.5-10.0) K/mm3 RBC 4.45 L (4.6-6.20) M/mm3 Hgb 12.6 L (14.0-18.0) g/dL Hct 38.6 L (42.0-52.0) % MCV 86.7 (80-100) fl MCH 28.3 (26-34) pg MCHC 32.6 (32-36) g/dl RDW 12.6 (11.5-14.5) % Plt Count 275 D (150-375) k/mm3 MPV 10.3 (7.4-10.4) fl Immature Gran % (Auto) 0.1 (0-0.5) % Neut % (Auto) 69.6 (45.5-73.1) % Lymph % (Auto) 18.8 (18.3-44.2) % Barry % (Auto) 6.8 (2.6-8.5) % Eos % (Auto) 4.3 (0-4.4) % Baso % (Auto) 0.4 (0.2-1.2) % Lymph # (Auto) 1.32 (0.9-3.2) K/mm3 Barry # (Auto) 0.5 (0.1-0.6) K/mm3 Eos # (Auto) 0.3 (0-0.3) K/mm3 Baso # (Auto) 0.0 (0.0-0.1) K/mm3 Abs Immat Gran (auto) 0.01 (0.00-0.031) K/mm3 Absolute Neuts (auto) 4.9 (1.3-6.7) K/mm3 Absolute Nucleated RBC 0.000 (0.0-0.012) K/mm3 Nucleated RBC % 0.0 (0.0-0.2) % Minute Volume Not Reportable Vent Mode Cmv Tidal Volume 450 ml PEEP 5 cmH2O Peak Inspir Pressure Not Reportable Pressure Support Not Reportable Sodium 143 (137-145) mmol/L Potassium 3.8 (3.4-5.0) mmol/L Chloride 106 (98-107) mmol/L Carbon Dioxide 24 (22-30) mmol/L Anion Gap 13 H (4-12) mmol/L BUN 26 H (9-20) mg/dL Creatinine 1.40 H (0.7-1.3) mg/dL Estim Creat Clear Calc Not Reportable Estimated GFR 55 L (59 - ) Glucose 93 (65-110) mg/dL Lactic Acid 1.1 (0.7-2.0) mmol/L Calcium 9.2 (8.4-10.2) mg/dL Total Bilirubin 0.8 (0.2-1.3) mg/dL AST 36 (17-59) U/L ALT 27 (6-50) U/L Alkaline Phosphatase 70 (38-126) U/L Total Creatine Kinase 457 H (55-170) U/L Total Protein 8.0 (6.3-8.2) g/dL Albumin 4.4 (3.5-5.1) g/dL TSH 2.090 (0.465-4.680) uIU/mL Urine Color Dark yellow (Yellow) Urine Appearance Clear (Clear) Urine pH 5.5 (5.0-9.0) Ur Specific [place] 1.036 H (1.001-1.035) Urine Protein 1+ H (Negative) mg/dL Urine Glucose (UA) Negative (Negative) mg/dL Urine Ketones Trace H (Negative) mg/dL Ur Blood (Man) 1+ H (Negative) Urine Nitrate Negative (Negative) Urine Bilirubin Negative (Negative) Urine Urobilinogen 1.0 (<2.0) mg/dL Add Ur Microanalysis Reviewed Leukocyte Esterase Rfl Negative (Negative) MALLORY/UL Urine RBC 21-50 H (0-2) /hpf Urine WBC 0-5 (0-3) /hpf Ur Squamous Epith Cells None seen (Few) /hpf Urine Bacteria None seen /hpf Urine Casts 6-10 Salicylates < 1.0 L (2-20) mg/dL Urine Opiates Screen Negative (Negative) Urine Methadone Screen Negative (Negative) Acetaminophen < 10 L (10-30) ug/mL Ur Barbiturates Screen Negative (Negative) Ur Phencyclidine Scrn Negative (Negative) Ur Amphetamine Screen Positive A (Negative) U Benzodiazepines Scrn Negative (Negative) Urine Cocaine Screen Negative (Negative) U Cannabinoids Screen Negative (Negative) Ethyl Alcohol < 10 (<10) mg/dL ABG Data ABG results: 03/26/25 01:36 VBG pH 7.328 VBG pCO2 49.1 H VBG pO2 102.0 H VBG HCO3 25.2 O2 Delivery Device Ventilator O2 Liters/Min Not Reportable Vent Rate 18 FiO2 50 Attestation: I personally reviewed and interpreted this ABG as follows: Interpretation: Normal pH. mildly elevated CO2 Imaging Data Attestation: I personally reviewed and interpreted this imaging study as follows: My impression: No acute intracranial hemorrhage, hydrocephalus or mass effect. Chest x-ray with appropriate ET tube position with no acute process. Critical Care Time Critical Care Time Critical Care Time: Yes Total Critical Care Time: 75 Discharge Plan Discharge Clinical Impression: Overdose of sympathomimetic agent, Amphetamine abuse, Agitation requiring sedation protocol, On mechanically assisted ventilation Patient Disposition: Still a Patient Condition: Stable Time of Disposition: 03:56
[2025-03-26] MEDS: ROCURONIUM BROMIDE 50 MG/5 ML VIAL 100 MG IV PUSH (01:46)
[2025-03-26 01:47] LABS: Fractional Inspired Oxygen 50 %; HCO3 VBG 25.2 mEq/l (24.0-30.0); PCO2 VBG 49.1 mmHg (42.0-48.0); pH VBG 7.328 (7.300-7.400)
[2025-03-26] MEDS: ETOMIDATE 20 MG/10 ML AMPUL 30 MG IV PUSH (01:47)
[2025-03-26] MEDS: MIDAZOLAM HCL (*CRX) 2 MG/2 ML VIAL 4 MG (01:48)
[2025-03-26] MEDS: MIDAZOLAM HCL (*CRX) 2 MG/2 ML VIAL 12 MG IV PUSH (01:49)
[2025-03-26 01:50] LABS: Device VENTILATOR
[2025-03-26 01:51] LABS: Arterial Blood Gas PEEP 5 cmH2O; Arterial Blood Gas Tidal Volume 450 ml; Arterial Blood Gas Vent Mode CMV; Arterial Blood Gas Ventilator rate 18 /MIN
[2025-03-26 01:58] LABS: Basophils Percent Auto 0.4 % (0.2-1.2); Eosinophils Absolute Auto 0.3 K/mm3 (0-0.3); Eosinophils Percent Auto 4.3 % (0-4.4); Hematocrit 38.6 % (42.0-52.0); Hemoglobin 12.6 g/dL (14.0-18.0); Immature Granulocyte Absolute 0.01 K/mm3 (0.00-0.031); Immature Granulocyte Percent A 0.1 % (0-0.5); Lymphocytes Absolute Auto 1.32 K/mm3 (0.9-3.2); Lymphocytes Percent Auto 18.8 % (18.3-44.2); Mean Corpuscular HGB Conc 32.6 g/dl (32-36); Mean Corpuscular Hemoglobin 28.3 pg (26-34); Mean Corpuscular Volume 86.7 fl (80-100); Mean Platelet Volume 10.3 fl (7.4-10.4); Monocytes Absolute Auto 0.5 K/mm3 (0.1-0.6); Monocytes Percent Auto 6.8 % (2.6-8.5); Neutrophils Absolute Auto 4.9 K/mm3 (1.3-6.7); Neutrophils Percent Auto 69.6 % (45.5-73.1); Platelet Count Result 275 k/mm3 (150-375); Red Blood Count 4.45 M/mm3 (4.6-6.20); Red Cell Distribution Width 12.6 % (11.5-14.5)
[2025-03-26] MEDS: MIDAZOLAM HCL (*CRX) 2 MG/2 ML VIAL IV PUSH (02:02)
--- NOTE | 2025-03-26 02:04 | PC.NURSE ---
Pt taken to CT on stretcher accompanied by this RN, x2 CT tach and respiratory.
[2025-03-26 02:08] LABS: Add Urine Microscopic? YES; Appearance Urine Clear (Clear); Bacteria Urine None Seen /hpf; Bilirubin Urine Negative (Negative); Blood Urine 1+ (Negative); Color Urine Dark Yellow (Yellow); Glucose Urine UA Negative (Negative); Ketones Urine Trace mg/dL (Negative); Leukocyte Esterase Ur Negative LEU/UL (Negative); Need Manual Microscopic Reviewed; Nitrate Urine Negative (Negative); Protein Urine 1+ mg/dL (Negative); RBC Urine 21-50 /hpf (0-2); Specific Grav Ur 1.036 (1.001-1.035); Squamous Epithelial Cell Urine None Seen /hpf (Few); WBC Urine 0-5 /hpf (0-3); pH Urine 5.5 (5.0-9.0)
[2025-03-26 02:11] LABS: Alanine Aminotransferase 27 U/L (6-50); Albumin Level 4.4 g/dL (3.5-5.1); Alkaline Phosphatase 70 U/L (38-126); Anion Gap 13 mmol/L (4-12); Aspartate Amino Transferase 36 U/L (17-59); Bilirubin,Total 0.8 mg/dL (0.2-1.3); Blood Urea Nitrogen 26 mg/dL (9-20); Calcium 9.2 mg/dL (8.4-10.2); Carbon Dioxide 24 mmol/L (22-30); Chloride 106 mmol/L (98-107); Estimated Glomerular Filt Rate 55; Glucose 93 mg/dL (65-110); Potassium 3.8 mmol/L (3.4-5.0); Sodium 143 mmol/L (137-145)
[2025-03-26 02:12] LABS: Acetaminophen < 10 ug/mL (10-30); Ethanol < 10 mg/dL (<10); Salicylate < 1.0 mg/dL (2-20)
[2025-03-26 02:16] LABS: Barbiturate Screen Urine Negative (Negative); Benzodiazepines Screen Urine Negative (Negative)
[2025-03-26 02:17] LABS: Cannabinoid Screen Urine Negative (Negative); Cocaine Screen Urine Negative (Negative); Methadone Screen Urine Negative (Negative); Opiate Screen Urine Negative (Negative); Phencyclidine Screen Urine Negative (Negative)
[2025-03-26] MEDS: PROPOFOL IV EMULSION 100 ML 2.73 MG IV CONT (02:36)
[2025-03-26 02:39] LABS: Amphetamine Screen Urine Positive (Negative)
[2025-03-26 03:07] LABS: Creatine Kinase 457 U/L (55-170)
[2025-03-26 03:08] LABS: Lactic Acid Reflex 1.1 mmol/L (0.7-2.0)
--- NOTE | 2025-03-26 03:17 | PC.NURSE ---
18FR NG tube placed with x-ray confirmation 69@ R nostril
[2025-03-26] MEDS: LACTATED RINGERS 1,000 ML 999 ML IV CONT ×3 (03:52→08:22)
--- NOTE | 2025-03-26 04:30 | ADMGEN ---
This patient, Ephraim Reilly, was admitted to Intensive Care Unit-4. Patient/family oriented to hospital policies and general routines including ID bracelet, bed and alarms, visiting hours, pain management, procedures, bathroom and other care routines, personal items, smoking policy, room service/diet, and visiting hours. Information on how to activate the Rapid Response Team has been discussed. Patient/Family are encouraged to report perceived risks to care and to ask questions if they do not understand what they are told or what they should do.
[2025-03-26] MEDS: PROPOFOL IV EMULSION 100 ML 19.13 MG IV CONT ×3 (06:00→16:34)
[2025-03-26] MEDS: LACTATED RINGERS 1,000 ML 150 ML IV CONT (06:52)
[2025-03-26 08:34] LABS: MRSA (PCR) NOT DETECTED (NOT DETECTE)
--- NOTE | 2025-03-26 08:42 | PCRCNOTE ---
abg late due to analyzer needing to be restarted.
[2025-03-26 09:03] LABS: Alveolar/Arterial O2 Gradient 99.2 mmHg; Base Excess ABG 1.9 mEq/l (+/-2.0); Fractional Inspired Oxygen 35 %; HCO3 ABG 27.2 mEq/l (22.0-26.0); Oxygen Content ABG 17.1 %vol (16.0-22.0); Oxygen Saturation ABG 97.4 % (95.0-100.0); Oxyhemoglobin 96.1 % THb (90.0-100.0); Total Hemoglobin 12.6 g/dL (12.0-18.0); pH ABG 7.399 (7.350-7.450)
[2025-03-26 09:04] LABS: Device VENTILATOR; Modified Allen's Test Pass; Site Drawn RIGHT RADIAL
[2025-03-26 09:05] LABS: Arterial Blood Gas PEEP 5 cmH2O; Arterial Blood Gas Tidal Volume 450 ml; Arterial Blood Gas Vent Mode CMV; Arterial Blood Gas Ventilator rate 18 /MIN
[2025-03-26 09:12] LABS: Alanine Aminotransferase 23 U/L (6-50); Albumin Level 3.7 g/dL (3.5-5.1); Alkaline Phosphatase 57 U/L (38-126); Anion Gap 7 mmol/L (4-12); Aspartate Amino Transferase 31 U/L (17-59); Bilirubin,Total 0.7 mg/dL (0.2-1.3); Blood Urea Nitrogen 26 mg/dL (9-20); Calcium 8.8 mg/dL (8.4-10.2); Carbon Dioxide 28 mmol/L (22-30); Chloride 106 mmol/L (98-107); Creatine Kinase 357 U/L (55-170); Estimated CRCL calculation 77 ml/min; Estimated Glomerular Filt Rate > 60; Glucose 103 mg/dL (65-110); Magnesium 2.2 mg/dL (1.6-2.3); Phosphorus 4.5 mg/dL (2.5-4.5); Sodium 141 mmol/L (137-145)
[2025-03-26 09:38] LABS: Influenza A QL RT-PCR Negative (Negative); Influenza B QL RT-PCR Negative (Negative); RSV RNA, RT-PCR Negative (Negative); SARS-CoV-2 RNA PCR Negative (Negative)
[2025-03-26] MEDS: MIDAZOLAM 100MG/NS 100ML(*CRX) 100 MG/100 ML BAG 9 MG IV CONT (10:59)
--- NOTE | 2025-03-26 12:16 | WPDCNINT ---
Assessment and Plan Assessment and plan (1) Overdose of sympathomimetic agent: Code(s): T44.901A - Poisoning by unspecified drugs primarily affecting the autonomic nervous system, accidental (unintentional), initial encounter Status: Acute Assessment and Plan: Patient presented after overdose on fentanyl/amphetamine -patient on sympathomimetic sentence upon arrival -treated with Versed -was intubated due to being combative and agitated according the notes required 8 staff members were required to hold him down -currently sedated with Versed and propofol infusion -patient was given additional IV fluids this morning -continue maintenance IV fluids (2) On mechanically assisted ventilation: Code(s): Z99.11 - Dependence on respirator [ventilator] status Status: Acute Assessment and Plan: Patient was agitated, combative in the ER, -intubated with etomidate and rocuronium -currently on CMV mode of ventilation, peep of 5, 35% FiO2 -chest x-ray and ABGs reviewed -on Versed and propofol infusion for sedation (3) Amphetamine abuse: Code(s): F15.10 - Other stimulant abuse, uncomplicated Status: Acute Assessment and Plan: Continue benzodiazepine -will addictions counselor assistant patient on cessation of amphetamine use once he is extubated (4) Acute kidney injury: Code(s): N17.9 - Acute kidney failure, unspecified Status: Acute Assessment and Plan: Likely related to sympathomimetic symptoms, hypovolemia -creatinine improving -continue to monitor urine output, renal function and electrolytes Plan DVT prophylaxis: Lovenox Stress ulcer prophylaxis: Protonix Nutrition: Start tube feeds Code Status: Full code Critical Care Time Spent: 45 minutes Due to a high probability of clinically significant, life threatening deterioration, the patient required my highest level of preparedness to intervene emergently and I personally spent this critical care time directly and personally managing the patient. This critical care time included obtaining a history; examining the patient; pulse oximetry; ordering and review of studies; arranging urgent treatment with development of a management plan; evaluation of patient's response to treatment; frequent reassessment; and discussions with other providers. It was exclusive of separately billable procedures and treating other patients and teaching time. Please see Assessment and Plan section and the rest of the note for further information on patient assessment and treatment This dictation may have been done utilizing a voice recognition system. Attempts have been made to correct errors. However, there may be uncorrected grammatical, spelling, and recognitions errors present. Otr Flatbed Driver Consult Note Consult date: 03/26/25 HPI: Ephraim Reilly is a 44 year old male with past medical history of craniotomy, sleep apnea, no other past medical history presented the ED on 03/26/2025 for fentanyl overdose, patient was in police custody when he took 2 beans of fentanyl. Patient was drowsy/somnolent, received Narcan and woke up EN route to the ER. In the ED patient had fixed and dilated pupils, conjunctival injection, drenching in sweat, combative, shaking all his extremities vigorously. Requiring 8 staff members to hold him down. Patient received multiple doses of Versed without any response. He was intubated with etomidate and rocuronium. Placed on Versed and propofol for sedation and transferred to the ICU for further management. Full cough showed acute kidney injury with creatinine 1.40, other labs are within normal limits. Mildly elevated CPK level. Chest x-ray with no acute findings. CT head with no hemorrhage, hydrocephalus or herniation. Previous fentanyl calvarial fractures seen as well as frontal encephalomalacia. EKG showed sinus rhythm, no ST elevations, depressions. Patient was given 2 L of IV fluids and transferred to the ICU for further management Patient seen and examined the ICU this morning. Patient remains intubated on CMV mode of ventilation, peep of 5, 35% FiO2. Sedated with propofol and Versed infusion. Urine output has been adequate, afebrile, hemodynamically stable. Patient does not open his eyes or follow simple commands Review of Systems Review of Systems: ROS unobtainable: Yes unobtainable due to endotracheal tube and unobtainable due to mental status PMFSH Past Medical History Medical History ACL tear Degenerative joint disease of knee Medial meniscus tear Left knee pain History of nasal polyp Chronic sinusitis Lymphadenopathy Fatigue Obesity (BMI 35.0-39.9 without comorbidity) Lymphadenitis Sleep apnea Surgical History Surgical History H/O brain surgery 2018 Family History Family History Mother Skin cancer Father Rheumatoid arthritis Grandparent Pancreatic cancer Social History Social History Smoking packs per day: 1 Smoking cigarettes per day: 20.0 Years smoked: 20 Smoking pack-years: 20.00 Smoking status: Former smoker Alcohol intake: unknown Substance use: unknown Lack of Transportation: YES Lack of Food: Never True Current Housing: I Have Housing Concerned About Future Housing: No Difficulty Paying Gas/Electric Bills: No Difficulty Paying for Meds: No Currently Unemployed: No Education: High School Diploma/GED Difficulty w/ Childcare or Family Care: No Living arrangements: alone Spiritual care concerns: No Meds Home Medications and Allergies Home Medications ?Medication ?Instructions ?Recorded ?Confirmed ?Type No Home Medications 12/01/20 03/26/25 History Allergies Allergy/AdvReac Type Severity Reaction Status Date / Time No Known Allergies Allergy Mild Verified 10/11/22 15:54 Vital Signs Vital Signs - 24 hr 03/26/25 01:15 03/26/25 01:24 03/26/25 01:34 Temperature Pulse Rate 112 H 92 Respiratory Rate 18 18 Blood Pressure Pulse Oximetry Oxygen Delivery Mechanical Ventilation Fraction of Inspired Oxygen 03/26/25 01:44 03/26/25 01:54 03/26/25 02:12 Temperature Pulse Rate 97 98 101 H Respiratory Rate 18 18 18 Blood Pressure Pulse Oximetry Oxygen Delivery Fraction of Inspired Oxygen 03/26/25 02:22 03/26/25 02:31 03/26/25 02:32 Temperature Pulse Rate 89 86 88 Respiratory Rate 18 18 18 Blood Pressure 114/83 Pulse Oximetry 97 97 Oxygen Delivery Fraction of Inspired Oxygen 03/26/25 02:34 03/26/25 02:36 03/26/25 02:36 Temperature Pulse Rate 90 92 90 Respiratory Rate 18 18 Blood Pressure 107/74 Pulse Oximetry 97 Oxygen Delivery Fraction of Inspired Oxygen 03/26/25 02:39 03/26/25 02:45 03/26/25 02:45 Temperature Pulse Rate 85 88 86 Respiratory Rate 18 19 18 Blood Pressure Pulse Oximetry 98 Oxygen Delivery Fraction of Inspired Oxygen 03/26/25 02:46 03/26/25 02:48 03/26/25 02:52 Temperature Pulse Rate 86 85 87 Respiratory Rate 18 18 18 Blood Pressure 104/71 104/74 Pulse Oximetry 98 98 Oxygen Delivery Fraction of Inspired Oxygen 03/26/25 03:20 03/26/25 03:21 03/26/25 03:33 Temperature 98.7 F 98.6 F Pulse Rate 85 85 Respiratory Rate 18 18 Blood Pressure 100/68 Pulse Oximetry 98 98 98 Oxygen Delivery Mechanical Ventilation Fraction of Inspired Oxygen 03/26/25 04:06 03/26/25 04:33 03/26/25 04:40 Temperature 98.1 F Pulse Rate 82 77 76 Respiratory Rate 18 18 Blood Pressure 103/72 104/79 Pulse Oximetry 99 100 99 Oxygen Delivery Mechanical Ventilation Fraction of Inspired Oxygen 03/26/25 05:35 03/26/25 05:35 03/26/25 05:36 Temperature Pulse Rate 91 Respiratory Rate 18 Blood Pressure Pulse Oximetry 99 Oxygen Delivery Fraction of Inspired Oxygen 35 35 03/26/25 05:37 03/26/25 06:00 03/26/25 06:00 Temperature Pulse Rate 70 65 65 Respiratory Rate 18 18 18 Blood Pressure Pulse Oximetry Oxygen Delivery Fraction of Inspired Oxygen 03/26/25 06:00 03/26/25 06:00 03/26/25 06:00 Temperature 96.8 F L Pulse Rate 66 69 69 Respiratory Rate 18 18 Blood Pressure 103/74 Pulse Oximetry 100 Oxygen Delivery Fraction of Inspired Oxygen 03/26/25 08:00 03/26/25 08:00 03/26/25 08:00 Temperature Pulse Rate 66 66 Respiratory Rate 18 18 Blood Pressure Pulse Oximetry Oxygen Delivery Fraction of Inspired Oxygen 35 03/26/25 08:00 03/26/25 08:00 03/26/25 08:00 Temperature 97.6 F Pulse Rate 68 68 66 Respiratory Rate 18 18 Blood Pressure 93/70 L Pulse Oximetry 100 100 Oxygen Delivery Mechanical Ventilation Fraction of Inspired Oxygen 35 03/26/25 09:37 03/26/25 10:00 03/26/25 10:00 Temperature Pulse Rate 71 71 71 Respiratory Rate 18 18 Blood Pressure Pulse Oximetry 100 Oxygen Delivery Mechanical Ventilation Fraction of Inspired Oxygen 30 03/26/25 10:00 03/26/25 10:00 03/26/25 10:59 Temperature 97.8 F Pulse Rate 71 71 71 Respiratory Rate 18 18 Blood Pressure 109/67 Pulse Oximetry 100 Oxygen Delivery Fraction of Inspired Oxygen 03/26/25 10:59 03/26/25 11:01 03/26/25 11:01 Temperature Pulse Rate 71 71 71 Respiratory Rate 18 18 18 Blood Pressure Pulse Oximetry Oxygen Delivery Fraction of Inspired Oxygen Exam Narrative: General: Well-built gentleman in no acute distress HEENT:? Pupils equal and reactive, sclera is clear, ETT in place Neck:? Supple Respiratory:? Clear to auscultation bilaterally, no wheezing, adequate air entry Cardiac:? S1-S2 normal, regular rate and rhythm Abdomen:? Soft, nontender nondistended, hypoactive bowel sounds Extremities:? No edema, palpable pedal pulses Neuro:? Patient intubated, sedated with Klaudiaosmany Guidryh follows simple commands, does not withdraw to pain Skin:? Warm and dry, no lesions noted Psych:? Unable to assess at this time Results Labs 03/26/25 01:36 03/26/25 08:52 Labs: Short CBC 03/26/25 Range/Units 01:36 WBC 7.0 (4.5-10.0) K/mm3 Hgb 12.6 L (14.0-18.0) g/dL Hct 38.6 L (42.0-52.0) % Plt Count 275 D (150-375) k/mm3 BMP 03/26/25 03/26/25 01:36 08:52 Sodium 143 141 Potassium 3.8 4.0 Chloride 106 106 Carbon Dioxide 24 28 BUN 26 H 26 H Creatinine 1.40 H 1.23 Glucose 93 103 Calcium 9.2 8.8 Cardiac Enzymes 03/26/25 03/26/25 Range/Units 01:36 08:52 Total Creatine Kinase 457 H 357 H (55-170) U/L Liver Function 03/26/25 03/26/25 Range/Units 01:36 08:52 Total Bilirubin 0.8 0.7 (0.2-1.3) mg/dL AST 36 31 (17-59) U/L ALT 27 23 (6-50) U/L Alkaline Phosphatase 70 57 (38-126) U/L Albumin 4.4 3.7 (3.5-5.1) g/dL Urine 03/26/25 Range/Units 01:36 Urine Color Dark yellow (Yellow) Urine Appearance Clear (Clear) Urine pH 5.5 (5.0-9.0) Ur Specific [place] 1.036 H (1.001-1.035) Urine Protein 1+ H (Negative) mg/dL Urine Glucose (UA) Negative (Negative) mg/dL Quality VTE Prophylaxis VTE prophylaxis: pharmacologic ordered Hospitalist MIPS Advance Care Plan I have confirmed that the patient's Advanced Care Plan is present, code status is documented, or surrogate decision maker is listed in patient medical record.: Yes Medication Reconciliation I have utilized all available resources to obtain, update and review the patients current medications (includes all prescriptions, OTC, herbals, cannabis, and nutritional supplements).: Yes
[2025-03-26 12:19] LABS: Basophils Percent Auto 0.3 % (0.2-1.2); Eosinophils Absolute Auto 0.1 K/mm3 (0-0.3); Eosinophils Percent Auto 1.9 % (0-4.4); Hemoglobin 10.9 g/dL (14.0-18.0); Immature Granulocyte Absolute 0.01 K/mm3 (0.00-0.031); Immature Granulocyte Percent A 0.1 % (0-0.5); Lymphocytes Absolute Auto 0.89 K/mm3 (0.9-3.2); Lymphocytes Percent Auto 12.9 % (18.3-44.2); Mean Corpuscular HGB Conc 32.1 g/dl (32-36); Mean Corpuscular Hemoglobin 28.2 pg (26-34); Mean Corpuscular Volume 87.9 fl (80-100); Mean Platelet Volume 9.8 fl (7.4-10.4); Monocytes Absolute Auto 0.6 K/mm3 (0.1-0.6); Monocytes Percent Auto 8.5 % (2.6-8.5); Neutrophils Absolute Auto 5.3 K/mm3 (1.3-6.7); Neutrophils Percent Auto 76.3 % (45.5-73.1); Platelet Count Result 209 k/mm3 (150-375); Red Blood Count 3.87 M/mm3 (4.6-6.20); Red Cell Distribution Width 12.7 % (11.5-14.5); White Blood Count 6.9 K/mm3 (4.5-10.0)
[2025-03-26 12:30] LABS: INR 1.1; Partial Thromboplastin Time 28.7 Seconds (22.3-36.8); Prothrombin Time 14.2 Seconds (11.1-14.7)
[2025-03-26] MEDS: ENOXAPARIN 40 MG/0.4 ML SYRINGE SUB-Q (12:55)
[2025-03-26] MEDS: PANTOPRAZOLE SODIUM IV 40 MG VIAL IV PUSH (12:56)
--- NOTE | 2025-03-26 17:37 | P.HP_ITS ---
H&P: HPI History of Present Illness Date/Time: 03/26/25 17:37 Chief Complaint: Overdose Narrative: 44-year-old male with no significant pertinent past medical history presenting to the emergency department after suspected overdose. Patient was intubated and sedated at the time of this encounter. Per ER documentation, patient was in police custody when he was found somnolent and was given Narcan which woke him up. He was noted to have claimed he had two beans of fentanyl. Had another episode of somnolence and was given another episode of Narcan and was brought to the ER. Was noted to be agitated in the ER, diaphoretic with distended neck veins. Patient was intubated eventually and admitted to the ICU. labs Hb 10.9, Cr 1.23, MRSA negative, CXR no acute changes, CT head no acute changes UDS positive for Amphetamine Review of Systems Review of Systems: Unable to do ROS as patient was intubated and sedated PMFSH Past Medical History Medical History ACL tear Degenerative joint disease of knee Medial meniscus tear Left knee pain History of nasal polyp Chronic sinusitis Lymphadenopathy Fatigue Obesity (BMI 35.0-39.9 without comorbidity) Lymphadenitis Sleep apnea Surgical History Surgical History H/O brain surgery 2018 Family History Family History Mother Skin cancer Father Rheumatoid arthritis Grandparent Pancreatic cancer Social History Social History Smoking packs per day: 1 Smoking cigarettes per day: 20.0 Years smoked: 20 Smoking pack-years: 20.00 Smoking status: Former smoker Alcohol intake: unknown Substance use: unknown Lack of Transportation: YES Lack of Food: Never True Current Housing: I Have Housing Concerned About Future Housing: No Difficulty Paying Gas/Electric Bills: No Difficulty Paying for Meds: No Currently Unemployed: No Education: High School Diploma/GED Difficulty w/ Childcare or Family Care: No Living arrangements: alone Spiritual care concerns: No Meds Home Medications and Allergies Home Medications ?Medication ?Instructions ?Recorded ?Confirmed ?Type No Home Medications 12/01/20 03/26/25 History Allergies Allergy/AdvReac Type Severity Reaction Status Date / Time No Known Allergies Allergy Mild Verified 10/11/22 15:54 Vital Signs Vital Signs - 24 hr 03/26/25 01:15 03/26/25 01:24 03/26/25 01:34 Temperature Pulse Rate 112 H 92 Respiratory Rate 18 18 Blood Pressure Pulse Oximetry Oxygen Delivery Mechanical Ventilation Fraction of Inspired Oxygen 03/26/25 01:44 03/26/25 01:54 03/26/25 02:12 Temperature Pulse Rate 97 98 101 H Respiratory Rate 18 18 18 Blood Pressure Pulse Oximetry Oxygen Delivery Fraction of Inspired Oxygen 03/26/25 02:22 03/26/25 02:31 03/26/25 02:32 Temperature Pulse Rate 89 86 88 Respiratory Rate 18 18 18 Blood Pressure 114/83 Pulse Oximetry 97 97 Oxygen Delivery Fraction of Inspired Oxygen 03/26/25 02:34 03/26/25 02:36 03/26/25 02:36 Temperature Pulse Rate 90 92 90 Respiratory Rate 18 18 Blood Pressure 107/74 Pulse Oximetry 97 Oxygen Delivery Fraction of Inspired Oxygen 03/26/25 02:39 03/26/25 02:45 03/26/25 02:45 Temperature Pulse Rate 85 88 86 Respiratory Rate 18 19 18 Blood Pressure Pulse Oximetry 98 Oxygen Delivery Fraction of Inspired Oxygen 03/26/25 02:46 03/26/25 02:48 03/26/25 02:52 Temperature Pulse Rate 86 85 87 Respiratory Rate 18 18 18 Blood Pressure 104/71 104/74 Pulse Oximetry 98 98 Oxygen Delivery Fraction of Inspired Oxygen 03/26/25 03:20 03/26/25 03:21 03/26/25 03:33 Temperature 98.7 F 98.6 F Pulse Rate 85 85 Respiratory Rate 18 18 Blood Pressure 100/68 Pulse Oximetry 98 98 98 Oxygen Delivery Mechanical Ventilation Fraction of Inspired Oxygen 03/26/25 04:06 03/26/25 04:33 03/26/25 04:40 Temperature 98.1 F Pulse Rate 82 77 76 Respiratory Rate 18 18 Blood Pressure 103/72 104/79 Pulse Oximetry 99 100 99 Oxygen Delivery Mechanical Ventilation Fraction of Inspired Oxygen 03/26/25 05:35 03/26/25 05:35 03/26/25 05:36 Temperature Pulse Rate 91 Respiratory Rate 18 Blood Pressure Pulse Oximetry 99 Oxygen Delivery Fraction of Inspired Oxygen 35 35 03/26/25 05:37 03/26/25 06:00 03/26/25 06:00 Temperature Pulse Rate 70 65 65 Respiratory Rate 18 18 18 Blood Pressure Pulse Oximetry Oxygen Delivery Fraction of Inspired Oxygen 03/26/25 06:00 03/26/25 06:00 03/26/25 06:00 Temperature 96.8 F L Pulse Rate 66 69 69 Respiratory Rate 18 18 Blood Pressure 103/74 Pulse Oximetry 100 Oxygen Delivery Fraction of Inspired Oxygen 03/26/25 08:00 03/26/25 08:00 03/26/25 08:00 Temperature Pulse Rate 66 66 Respiratory Rate 18 18 Blood Pressure Pulse Oximetry Oxygen Delivery Fraction of Inspired Oxygen 35 03/26/25 08:00 03/26/25 08:00 03/26/25 08:00 Temperature 97.6 F Pulse Rate 68 68 66 Respiratory Rate 18 18 Blood Pressure 93/70 L Pulse Oximetry 100 100 Oxygen Delivery Mechanical Ventilation Fraction of Inspired Oxygen 35 03/26/25 09:37 03/26/25 10:00 03/26/25 10:00 Temperature Pulse Rate 71 71 71 Respiratory Rate 18 18 Blood Pressure Pulse Oximetry 100 Oxygen Delivery Mechanical Ventilation Fraction of Inspired Oxygen 30 03/26/25 10:00 03/26/25 10:00 03/26/25 10:59 Temperature 97.8 F Pulse Rate 71 71 71 Respiratory Rate 18 18 Blood Pressure 109/67 Pulse Oximetry 100 Oxygen Delivery Fraction of Inspired Oxygen 03/26/25 10:59 03/26/25 11:01 03/26/25 11:01 Temperature Pulse Rate 71 71 71 Respiratory Rate 18 18 18 Blood Pressure Pulse Oximetry Oxygen Delivery Fraction of Inspired Oxygen 03/26/25 12:00 03/26/25 12:00 03/26/25 12:00 Temperature Pulse Rate 77 77 72 Respiratory Rate 18 18 18 Blood Pressure Pulse Oximetry 99 Oxygen Delivery Mechanical Ventilation Fraction of Inspired Oxygen 30 03/26/25 12:00 03/26/25 12:00 03/26/25 12:00 Temperature 98.1 F Pulse Rate 74 72 Respiratory Rate 18 Blood Pressure 123/88 Pulse Oximetry 100 Oxygen Delivery Fraction of Inspired Oxygen 30 03/26/25 12:15 03/26/25 14:00 03/26/25 14:00 Temperature 98.4 F Pulse Rate 72 77 77 Respiratory Rate 18 Blood Pressure 130/88 Pulse Oximetry 99 99 Oxygen Delivery Mechanical Ventilation Fraction of Inspired Oxygen 30 03/26/25 14:00 03/26/25 14:00 03/26/25 14:22 Temperature Pulse Rate 77 77 76 Respiratory Rate 18 18 Blood Pressure Pulse Oximetry 99 Oxygen Delivery Mechanical Ventilation Fraction of Inspired Oxygen 30 03/26/25 16:00 03/26/25 16:00 03/26/25 16:00 Temperature 98.9 F Pulse Rate 80 80 Respiratory Rate 19 19 Blood Pressure 131/93 H Pulse Oximetry 99 99 Oxygen Delivery Mechanical Ventilation Fraction of Inspired Oxygen 30 30 03/26/25 16:00 03/26/25 16:00 03/26/25 16:15 Temperature Pulse Rate 81 81 82 Respiratory Rate 20 20 20 Blood Pressure Pulse Oximetry Oxygen Delivery Fraction of Inspired Oxygen 03/26/25 16:34 03/26/25 17:00 03/26/25 17:22 Temperature Pulse Rate 82 85 86 Respiratory Rate 20 22 H Blood Pressure Pulse Oximetry 99 Oxygen Delivery Mechanical Ventilation Fraction of Inspired Oxygen 30 03/26/25 17:30 Temperature Pulse Rate 86 Respiratory Rate 24 H Blood Pressure Pulse Oximetry Oxygen Delivery Fraction of Inspired Oxygen Exam Narrative: General: intubated and sedated Eyes: EOMI, PERRLA ENNT External ears normal, Neck is supple, no masses, Respiratory systems: Clear to auscultation Cardiovascular S1, S2, normal rhythm, no murmur, rub, or gallop; no thrill or palpable murmurs on palpation. Gastrointestinal: soft, non-tender, and non-distended abdomen with no masses; BS present Skin: no rash, lesions, ulcerations, subcutaneous nodules or induration Musculoskeletal: no abnormality and no tenderness, normal ROM Neurologic: intubated and sedated H&P: Results Labs Labs: Short CBC 03/26/25 03/26/25 Range/Units 01:36 12:14 WBC 7.0 6.9 (4.5-10.0) K/mm3 Hgb 12.6 L 10.9 L (14.0-18.0) g/dL Hct 38.6 L 34.0 L (42.0-52.0) % Plt Count 275 D 209 (150-375) k/mm3 BMP 03/26/25 03/26/25 01:36 08:52 Sodium 143 141 Potassium 3.8 4.0 Chloride 106 106 Carbon Dioxide 24 28 BUN 26 H 26 H Creatinine 1.40 H 1.23 Glucose 93 103 Calcium 9.2 8.8 Cardiac Enzymes 03/26/25 03/26/25 Range/Units 01:36 08:52 Total Creatine Kinase 457 H 357 H (55-170) U/L Liver Function 03/26/25 03/26/25 Range/Units 01:36 08:52 Total Bilirubin 0.8 0.7 (0.2-1.3) mg/dL AST 36 31 (17-59) U/L ALT 27 23 (6-50) U/L Alkaline Phosphatase 70 57 (38-126) U/L Albumin 4.4 3.7 (3.5-5.1) g/dL Urine 03/26/25 Range/Units 01:36 Urine Color Dark yellow (Yellow) Urine Appearance Clear (Clear) Urine pH 5.5 (5.0-9.0) Ur Specific [place] 1.036 H (1.001-1.035) Urine Protein 1+ H (Negative) mg/dL Urine Glucose (UA) Negative (Negative) mg/dL Assessment and Plan Assessment and plan (1) Amphetamine abuse: Code(s): F15.10 - Other stimulant abuse, uncomplicated Status: Acute (2) Acute kidney injury: Code(s): N17.9 - Acute kidney failure, unspecified Status: Acute (3) On mechanically assisted ventilation: Code(s): Z99.11 - Dependence on respirator [ventilator] status Status: Acute Plan Fentanyl and Amphetamine overdose Intubated and sedated on propofol and Versed Sedation per supervisor grain and yeast plants IVF and monitor Drug abuse International Logistics Coordinator when awake KAN Cr 1.23 monitor DVT prophylaxis on Lovenox Full code
--- NOTE | 2025-03-26 20:15 | PC.NURSE ---
Dr. Mars updated on residual level. Tube feeding held. Reevaluated in 2 hours.
--- NOTE | 2025-03-26 20:20 | PC.NURSE ---
Updated mother, Claribel, via telephone on plan of care and patient condition. Reviewed daily ICU 10am rounding format. Mother notified that if family member/s were not at bedside during rounding, families could be updated by his nurse or Export Sales Manager after rounds were over around midday or later. Mother verbalized understanding.
[2025-03-26] MEDS: PROPOFOL IV EMULSION 100 ML 24.6 MG IV CONT (21:00)
--- NOTE | 2025-03-26 22:30 | PC.NURSE ---
No change in residual level.
[2025-03-27] VITALS (34 sets, daily range): BP systolic 114–158; BP diastolic 64–96; PULSE 80–102; RESP 14–30; TEMP 37.1–38.7; O2SAT 95–100
[2025-03-27] MEDS: MIDAZOLAM 100MG/NS 100ML(*CRX) 100 MG/100 ML BAG 7 MG IV CONT
[2025-03-27] MEDS: IPRATROPIUM 0.5 MG/ALBUTEROL SULFATE 2.5 MG AMPUL.NEB 3 ML INHALATION ×5 (01:19→19:55)
[2025-03-27] MEDS: PROPOFOL IV EMULSION 100 ML 24.6 MG IV CONT ×6 (01:21→20:00)
--- NOTE | 2025-03-27 01:40 | PC.NURSE ---
0055-Patient tachypneic, moderate distress noted, heart rate 87 beats/ minute, respirations- 30 breaths/ minute. JESSICA Hart and Ravi RT notified. Left upper lobe very diminished. O2- 97%. Stat chest Xray ordered. RT at bedside, HME device changed. Left upper lobe auscultated, clear breath sounds noted Minimal sign of distress now noted. JESSICA Hart updated on patient condition and residual.
--- NOTE | 2025-03-27 02:22 | PCRCNOTE ---
0115: RN reports low volume and high pressure alarms sounding frequently, also suctioning for small-moderate amounts of secretions via ETT suction catheter. Breath sounds diminished on auscultation, tubing and HME checked, HME found to have moisture buildup which caused some obstruction of flow; changed and solved Press/Vt problem
[2025-03-27] MEDS: ACETAMINOPHEN ELIXIR 325 MG/10.15 ML UDC 650 MG FEED TUBE (03:22)
[2025-03-27 04:12] LABS: Alveolar/Arterial O2 Gradient 106.9 mmHg; Base Excess ABG 0.8 mEq/l (+/-2.0); Carboxyhemoglobin 0.4 % THb (0-2.0); Fractional Inspired Oxygen 30 %; HCO3 ABG 24.6 mEq/l (22.0-26.0); Methemoglobin ABG 0.2 %THb (0-1.5); Oxygen Content ABG 16.5 %vol (16.0-22.0); Oxygen Saturation ABG 93.4 % (95.0-100.0); Oxyhemoglobin 91.5 % THb (90.0-100.0); PCO2 ABG 36.5 mmHg (35.0-45.0); PO2 ABG 64.1 mmHg (80.0-100.0); PO2 FiO2 Ratio Arterial Blood 2.14 %; Reduced Hemoglobin 7.9 %THb (0-5.0); Total Hemoglobin 12.8 g/dL (12.0-18.0); pH ABG 7.446 (7.350-7.450)
[2025-03-27 04:16] LABS: Device VENTILATOR; Modified Allen's Test Pass; Site Drawn RIGHT RADIAL
[2025-03-27 04:18] LABS: Arterial Blood Gas Vent Mode CMV; Arterial Blood Gas Ventilator rate 18 /MIN
[2025-03-27 04:19] LABS: Arterial Blood Gas PEEP 8 cmH2O; Arterial Blood Gas Tidal Volume 450 ml
[2025-03-27 04:48] LABS: Alanine Aminotransferase 19 U/L (6-50); Albumin Level 3.7 g/dL (3.5-5.1); Alkaline Phosphatase 64 U/L (38-126); Anion Gap 8 mmol/L (4-12); Aspartate Amino Transferase 25 U/L (17-59); Bilirubin,Total 0.8 mg/dL (0.2-1.3); Blood Urea Nitrogen 22 mg/dL (9-20); Calcium 8.6 mg/dL (8.4-10.2); Carbon Dioxide 27 mmol/L (22-30); Chloride 102 mmol/L (98-107); Creatine Kinase 201 U/L (55-170); Estimated CRCL calculation 97 ml/min; Estimated Glomerular Filt Rate > 60; Glucose 104 mg/dL (65-110); Magnesium 2.2 mg/dL (1.6-2.3); Phosphorus 3.5 mg/dL (2.5-4.5); Sodium 137 mmol/L (137-145)
[2025-03-27 04:49] LABS: Lactic Acid Reflex 1.2 mmol/L (0.7-2.0)
[2025-03-27 06:14] LABS: Basophils Percent Auto 0.2 % (0.2-1.2); Eosinophils Percent Auto 0.1 % (0-4.4); Hematocrit 41.8 % (42.0-52.0); Hemoglobin 13.1 g/dL (14.0-18.0); Immature Granulocyte Absolute 0.05 K/mm3 (0.00-0.031); Immature Granulocyte Percent A 0.4 % (0-0.5); Lymphocytes Absolute Auto 0.82 K/mm3 (0.9-3.2); Lymphocytes Percent Auto 6.9 % (18.3-44.2); Mean Corpuscular HGB Conc 31.3 g/dl (32-36); Mean Corpuscular Hemoglobin 28.1 pg (26-34); Mean Corpuscular Volume 89.5 fl (80-100); Mean Platelet Volume 10.5 fl (7.4-10.4); Monocytes Absolute Auto 0.6 K/mm3 (0.1-0.6); Monocytes Percent Auto 4.9 % (2.6-8.5); Neutrophils Absolute Auto 10.4 K/mm3 (1.3-6.7); Neutrophils Percent Auto 87.5 % (45.5-73.1); Platelet Count Result 216 k/mm3 (150-375); Red Blood Count 4.67 M/mm3 (4.6-6.20); Red Cell Distribution Width 12.8 % (11.5-14.5); White Blood Count 11.9 K/mm3 (4.5-10.0)
[2025-03-27] MEDS: ROCURONIUM BROMIDE 50 MG/5 ML VIAL IV PUSH (06:20)
[2025-03-27] MEDS: CEFEPIME 2 GM/NS 50 ML 2 GM/50 ML BAG IVPB ×3 (06:40→21:20)
[2025-03-27] MEDS: metroNIDAZOLE 500 MG/ISO 100ML 500 MG/100 ML BAG 100 MG IVPB ×3 (06:57→22:34)
[2025-03-27] MEDS: VANCOMYCIN 1,250 MG/NS 250 ML 1,250 MG/250 ML BAG 166.67 MG IVPB (06:57)
[2025-03-27] MEDS: VANCOMYCIN 1,000 MG/NS 250 ML 1,000 MG/250 ML BAG 250 MG IVPB (08:04)
[2025-03-27] MEDS: PANTOPRAZOLE SODIUM IV 40 MG VIAL IV PUSH (08:06)
[2025-03-27] MEDS: ENOXAPARIN 40 MG/0.4 ML SYRINGE SUB-Q (08:06)
--- NOTE | 2025-03-27 09:05 | WPDINTPN ---
Progress Note: A&P Assessment and Plan (1) Overdose of sympathomimetic agent: Code(s): T44.901A - Poisoning by unspecified drugs primarily affecting the autonomic nervous system, accidental (unintentional), initial encounter <Kristi AlirezaSabas Chiquita Rhodes - Last Filed: 03/27/25 09:19> Status: Acute <Kristi Freedman Chiquita Rhodes - Last Filed: 03/27/25 09:19> Assessment and Plan: Patient presented after overdose on fentanyl/amphetamine -patient on sympathomimetic sentence upon arrival -treated with Versed -was intubated due to being combative and agitated according the notes required 8 staff members were required to hold him down -currently sedated with Versed and propofol infusion -continue maintenance IV fluids <Chiquita Max - Last Filed: 03/27/25 09:19> Patient presented after overdose on fentanyl/amphetamine -patient on sympathomimetic symptoms upon arrival -treated with Versed -was intubated due to being combative and agitated, according the notes required 8 staff members to hold him down -currently sedated with Versed and propofol infusion -off fluids <Luis Fernando Mars MD - Last Filed: 03/27/25 11:55> (2) On mechanically assisted ventilation: Code(s): Z99.11 - Dependence on respirator [ventilator] status <Chiquita Max - Last Filed: 03/27/25 09:19> Status: Acute <Chiquita Max - Last Filed: 03/27/25 09:19> Assessment and Plan: Patient was agitated, combative in the ER -intubated with etomidate and rocuronium -currently on CMV mode of ventilation, peep of 8, 30% FiO2 -chest x-ray and ABGs reviewed -on Versed and propofol infusion for sedation <Chiquita Max - Last Filed: 03/27/25 09:19> Patient was agitated, combative in the ER -intubated with etomidate and rocuronium -currently on CMV mode of ventilation, peep of 8, 30% FiO2 -chest x-ray and ABGs reviewed -on Versed and propofol infusion for sedation 03/27: CTA chest No evidence of PE, aortic dissection item aneurysm. 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 of amphetamine use once he is extubated <Kristi Pedrokenny, - Last Filed: 03/27/25 09:19> (4) Acute kidney injury: Code(s): N17.9 - Acute kidney failure, unspecified <Kristi Pedrokenny Student - Last Filed: 03/27/25 09:19> Status: Acute <Kristi Pedrokenny - Last Filed: 03/27/25 09:19> Assessment and Plan: Likely related to sympathomimetic symptoms, hypovolemia -creatinine improved -continue to monitor urine output, renal function and electrolytes <Kristi Pedrokenny - Last Filed: 03/27/25 09:19> Assessment and Plan: DVT prophylaxis: Lovenox Stress ulcer prophylaxis: Protonix Nutrition: Start tube feeds Code Status: Full code Critical Care Time Spent: 35 minutes Due to a high probability of clinically significant, life threatening deterioration, the patient required my highest level of preparedness to intervene emergently and I personally spent this critical care time directly and personally managing the patient. This critical care time included obtaining a history; examining the patient; pulse oximetry; ordering and review of studies; arranging urgent treatment with development of a management plan; evaluation of patient's response to treatment; frequent reassessment; and discussions with other providers. It was exclusive of separately billable procedures and treating other patients and teaching time. Please see Assessment and Plan section and the rest of the note for further information on patient assessment and treatment This dictation may have been done utilizing a voice recognition system. Attempts have been made to correct errors. However, there may be uncorrected grammatical, spelling, and recognitions errors present. <Kristi Rhodes Student - Last Filed: 03/27/25 09:19> DVT prophylaxis: Lovenox Stress ulcer prophylaxis: Protonix Nutrition: Start tube feeds Code Status: Full code Critical Care Time Spent: 33 minutes Discussed with patient's family in rounds and updated them with patient's condition and plan of care. I answered all questions. The patient's girlfriend stated that that he is a IV drug user Due to a high probability of clinically significant, life threatening deterioration, the patient required my highest level of preparedness to intervene emergently and I personally spent this critical care time directly and personally managing the patient. This critical care time included obtaining a history; examining the patient; pulse oximetry; ordering and review of studies; arranging urgent treatment with development of a management plan; evaluation of patient's response to treatment; frequent reassessment; and discussions with other providers. It was exclusive of separately billable procedures and treating other patients and teaching time. Please see Assessment and Plan section and the rest of the note for further information on patient assessment and treatment This dictation may have been done utilizing a voice recognition system. Attempts have been made to correct errors. However, there may be uncorrected grammatical, spelling, and recognitions errors present. <Luis Fernando Mars MD - Last Filed: 03/27/25 11:55> Subjective Date/time seen: 03/27/25 09:05 <Kristi Rhodes Student - Last Filed: 03/27/25 09:19> Interval history: 03/26- Intubated 03/27- Pt seen and evaluated in the ICU this morning. He remains intubated on CMV mode of ventilation, peep of 8, 30% FiO2. Sedated with propofol and Versed infusion. Urine output has been adequate, afebrile, hemodynamically stable. Patient does not open his eyes or follow simple commands <Kristi Rhodes Student - Last Filed: 03/27/25 09:19> 03/26- Intubated 03/27- Pt seen and evaluated in the ICU this morning. He remains intubated on CMV mode of ventilation, peep of 8, 30% FiO2. Sedated with propofol and Versed infusion. Urine output has been adequate, afebrile, hemodynamically stable. Patient does not open his eyes or follow simple commands. Febrile to a T-max of 101.6 overnight, tachypneic, dyssynchronous with the ventilator, requiring rocuronium early this morning. Patient girlfriend also states that he is an IV drug user <Luis Fernando Mars MD - Last Filed: 03/27/25 11:55> Review of Systems Review of Systems: ROS unobtainable: Yes unobtainable due to endotracheal tube <Chiquita Max - Last Filed: 03/27/25 09:19> ROS unobtainable: Yes unobtainable due to mental status <Luis Fernando Mars MD - Last Filed: 03/27/25 11:55> Exam Narrative: General: Well-built gentleman in no acute distress HEENT:? Pupils equal and sluggish, sclera is clear, ETT in place Neck:? Supple Respiratory:? Clear to auscultation bilaterally, no wheezing, adequate air entry Cardiac:? S1-S2 normal, regular rate and rhythm Abdomen:? Soft, nontender nondistended, hypoactive bowel sounds Extremities:? No edema, palpable pedal pulses Neuro:? Patient intubated, sedated with Propofol and Versed, does not follows simple commands, does not withdraw to pain Skin:? Warm and dry, no lesions noted Psych:? Unable to assess at this time <Chiquita Max - Last Filed: 03/27/25 09:19> Objective Data Vital Signs Vital Signs: Vital Signs - 24 hr 03/26/25 09:37 03/26/25 10:00 03/26/25 10:00 Temperature Pulse Rate 71 71 71 Respiratory Rate 18 18 Blood Pressure Pulse Oximetry 100 Oxygen Delivery Mechanical Ventilation Fraction of Inspired Oxygen 30 03/26/25 10:00 03/26/25 10:00 03/26/25 10:59 Temperature 97.8 F Pulse Rate 71 71 71 Respiratory Rate 18 18 Blood Pressure 109/67 Pulse Oximetry 100 Oxygen Delivery Fraction of Inspired Oxygen 03/26/25 10:59 03/26/25 11:01 03/26/25 11:01 Temperature Pulse Rate 71 71 71 Respiratory Rate 18 18 18 Blood Pressure Pulse Oximetry Oxygen Delivery Fraction of Inspired Oxygen 03/26/25 12:00 03/26/25 12:00 03/26/25 12:00 Temperature Pulse Rate 77 77 72 Respiratory Rate 18 18 18 Blood Pressure Pulse Oximetry 99 Oxygen Delivery Mechanical Ventilation Fraction of Inspired Oxygen 30 03/26/25 12:00 03/26/25 12:00 03/26/25 12:00 Temperature 98.1 F Pulse Rate 74 72 Respiratory Rate 18 Blood Pressure 123/88 Pulse Oximetry 100 Oxygen Delivery Fraction of Inspired Oxygen 30 03/26/25 12:15 03/26/25 14:00 03/26/25 14:00 Temperature 98.4 F Pulse Rate 72 77 77 Respiratory Rate 18 Blood Pressure 130/88 Pulse Oximetry 99 99 Oxygen Delivery Mechanical Ventilation Fraction of Inspired Oxygen 30 03/26/25 14:00 03/26/25 14:00 03/26/25 14:22 Temperature Pulse Rate 77 77 76 Respiratory Rate 18 18 Blood Pressure Pulse Oximetry 99 Oxygen Delivery Mechanical Ventilation Fraction of Inspired Oxygen 30 03/26/25 16:00 03/26/25 16:00 03/26/25 16:00 Temperature 98.9 F Pulse Rate 80 80 Respiratory Rate 19 19 Blood Pressure 131/93 H Pulse Oximetry 99 99 Oxygen Delivery Mechanical Ventilation Fraction of Inspired Oxygen 30 30 03/26/25 16:00 03/26/25 16:00 03/26/25 16:00 Temperature Pulse Rate 81 81 80 Respiratory Rate 20 20 Blood Pressure Pulse Oximetry Oxygen Delivery Fraction of Inspired Oxygen 03/26/25 16:15 03/26/25 16:34 03/26/25 17:00 Temperature Pulse Rate 82 82 85 Respiratory Rate 20 20 22 H Blood Pressure Pulse Oximetry Oxygen Delivery Fraction of Inspired Oxygen 03/26/25 17:22 03/26/25 17:30 03/26/25 18:00 Temperature Pulse Rate 86 86 85 Respiratory Rate 24 H 24 H Blood Pressure Pulse Oximetry 99 Oxygen Delivery Mechanical Ventilation Fraction of Inspired Oxygen 30 03/26/25 18:00 03/26/25 18:00 03/26/25 18:00 Temperature 99.6 F Pulse Rate 85 86 86 Respiratory Rate 24 H 24 H Blood Pressure 135/95 H Pulse Oximetry 97 Oxygen Delivery Fraction of Inspired Oxygen 03/26/25 18:15 03/26/25 20:00 03/26/25 20:00 Temperature Pulse Rate 86 85 85 Respiratory Rate 24 H 25 H 25 H Blood Pressure Pulse Oximetry Oxygen Delivery Fraction of Inspired Oxygen 03/26/25 20:00 03/26/25 20:00 03/26/25 20:00 Temperature 100.1 F H Pulse Rate 80 85 Respiratory Rate 24 H 24 H Blood Pressure 134/86 Pulse Oximetry 99 99 Oxygen Delivery Mechanical Ventilation Fraction of Inspired Oxygen 30 30 03/26/25 20:00 03/26/25 20:20 03/26/25 20:40 Temperature Pulse Rate 83 80 83 Respiratory Rate 25 H Blood Pressure Pulse Oximetry 99 Oxygen Delivery Mechanical Ventilation Fraction of Inspired Oxygen 30 03/26/25 21:00 03/26/25 21:00 03/26/25 22:00 Temperature 100.2 F H Pulse Rate 84 84 84 Respiratory Rate 21 H 21 H 22 H Blood Pressure 137/87 Pulse Oximetry 100 Oxygen Delivery Fraction of Inspired Oxygen 03/26/25 22:00 03/26/25 22:00 03/26/25 22:00 Temperature Pulse Rate 84 84 84 Respiratory Rate 25 H 25 H Blood Pressure Pulse Oximetry Oxygen Delivery Fraction of Inspired Oxygen 03/26/25 22:58 03/27/25 00:00 03/27/25 00:00 Temperature 99.9 F H Pulse Rate 86 85 86 Respiratory Rate 20 23 H Blood Pressure 126/70 Pulse Oximetry 99 96 Oxygen Delivery Mechanical Ventilation Fraction of Inspired Oxygen 30 03/27/25 00:00 03/27/25 00:00 03/27/25 00:00 Temperature Pulse Rate 86 84 Respiratory Rate 23 H 23 H Blood Pressure Pulse Oximetry Oxygen Delivery Fraction of Inspired Oxygen 30 03/27/25 00:00 03/27/25 00:00 03/27/25 01:21 Temperature Pulse Rate 85 80 88 Respiratory Rate 24 H 22 H Blood Pressure Pulse Oximetry 99 Oxygen Delivery Mechanical Ventilation Fraction of Inspired Oxygen 30 03/27/25 01:21 03/27/25 01:25 03/27/25 01:33 Temperature Pulse Rate 88 88 86 Respiratory Rate 22 H 26 H 26 H Blood Pressure Pulse Oximetry Oxygen Delivery Fraction of Inspired Oxygen 03/27/25 02:00 03/27/25 02:00 03/27/25 02:00 Temperature Pulse Rate 87 87 87 Respiratory Rate 23 H 23 H Blood Pressure Pulse Oximetry Oxygen Delivery Fraction of Inspired Oxygen 03/27/25 02:00 03/27/25 02:29 03/27/25 03:22 Temperature 100.3 F H 101.1 F H Pulse Rate 86 86 Respiratory Rate 25 H Blood Pressure 132/85 Pulse Oximetry 98 99 Oxygen Delivery Mechanical Ventilation Fraction of Inspired Oxygen 30 03/27/25 04:00 03/27/25 04:00 03/27/25 04:00 Temperature 101.6 F H Pulse Rate 96 96 96 Respiratory Rate 29 H 28 H 28 H Blood Pressure 145/96 H Pulse Oximetry 95 Oxygen Delivery Fraction of Inspired Oxygen 03/27/25 04:00 03/27/25 04:00 03/27/25 04:00 Temperature Pulse Rate 96 98 Respiratory Rate 28 H Blood Pressure Pulse Oximetry Oxygen Delivery Fraction of Inspired Oxygen 30 03/27/25 04:00 03/27/25 04:37 03/27/25 05:40 Temperature 101.6 F H Pulse Rate 98 100 Respiratory Rate 30 H 30 H Blood Pressure Pulse Oximetry 99 Oxygen Delivery Mechanical Ventilation Fraction of Inspired Oxygen 30 03/27/25 06:00 03/27/25 06:00 03/27/25 06:00 Temperature Pulse Rate 99 102 H 102 H Respiratory Rate 27 H 27 H Blood Pressure Pulse Oximetry Oxygen Delivery Fraction of Inspired Oxygen 03/27/25 06:00 03/27/25 06:09 03/27/25 08:00 Temperature Pulse Rate 101 H 91 Respiratory Rate 30 H 28 H Blood Pressure 158/89 H Pulse Oximetry 98 Oxygen Delivery Fraction of Inspired Oxygen 30 03/27/25 08:00 03/27/25 08:00 03/27/25 08:00 Temperature 99.4 F Pulse Rate 91 91 89 Respiratory Rate 28 H 28 H 28 H Blood Pressure 140/80 Pulse Oximetry 98 98 Oxygen Delivery Mechanical Ventilation Fraction of Inspired Oxygen 30 03/27/25 08:00 03/27/25 08:04 03/27/25 08:06 Temperature Pulse Rate 91 91 Respiratory Rate 27 H 27 H Blood Pressure Pulse Oximetry Oxygen Delivery Fraction of Inspired Oxygen 30 03/27/25 08:32 03/27/25 08:37 Temperature Pulse Rate 88 86 Respiratory Rate 28 H Blood Pressure Pulse Oximetry 99 Oxygen Delivery Mechanical Ventilation Fraction of Inspired Oxygen 30 <Kristi Rhodes, Student - Last Filed: 03/27/25 09:19> Intake/Output Intake/Output: Intake & Output 03/24/25 03/25/25 03/26/25 03/27/25 23:59 23:59 23:59 23:59 Intake Total 2674.2 467.6 Output Total 600 950 Balance 2074.2 -482.4 <Kristi Rhodes, Student - Last Filed: 03/27/25 09:19> Meds/Results Medications: Active Medications Generic Name Dose Route Start Last Admin Trade Name Freq PRN Reason Stop Dose Admin Acetaminophen 650 mg 03/26/25 20:27 03/27/25 03:22 Acetaminophen Elixir 325 Mg/10.15 Ml Udc FEED TUBE 650 mg Q6H PRN Administration Mild Pain (1-3) or Fever Albuterol/Ipratropium 3 ml 03/27/25 08:00 Ipratropium 0.5 Mg/Albuterol Sulfate 2.5 Mg Ampul.Neb 3 Ml INHALATION Q6HRT SHANE Enoxaparin Sodium 40 mg 03/27/25 09:00 03/27/25 08:06 Enoxaparin 40 Mg/0.4 Ml Syringe SUB-Q 40 mg DAILY SHANE Administration Midazolam HCl 100 mg in 100 mls @ 10 mls/hr 03/26/25 01:15 03/27/25 08:00 Versed 100 Mg/Ns 100 Ml IV CONT 10 mg/hr .Q10H SHANE 10 mls/hr Titration Protocol 10 MG/HR Propofol 100 mls @ 24.597 mls/hr 03/26/25 02:20 03/27/25 08:06 Diprivan IV CONT 45 mcg/kg/min .Q4H4M SHANE 24.6 mls/hr Administration Protocol 45 MCG/KG/MIN Cefepime HCl 2 gm in 50 mls @ 100 mls/hr 03/27/25 05:00 03/27/25 07:00 Maxipime 2 Gm/Ns 50 Ml IVPB Infused Q8H SHANE Infusion Vancomycin HCl 1,500 mg in 500 mls @ 250 mls/hr 03/27/25 18:00 Vancomycin 1,500 Mg/Ns 500 Ml IVPB Q12H SHANE Metronidazole 500 mg in 100 mls @ 100 mls/hr 03/27/25 06:00 03/27/25 08:10 Flagyl 500 Mg/Iso Soln 100 Ml IVPB Infused Q8H SHANE Infusion Pantoprazole Sodium 40 mg 03/27/25 09:00 03/27/25 08:06 Pantoprazole Sodium Iv 40 Mg Vial IV PUSH 40 mg QAM SHANE Administration <Kristi Rhodes, Student - Last Filed: 03/27/25 09:19> Radiology Results: ITS Impressions Head CT 03/26/25 05:29 Impression: No acute abnormality seen. Probable postoperative versus posttraumatic encephalomalacia in the anterior left frontal lobe with overlying postoperative changes of the bilateral frontal bones. Correlate with surgical history. Abdomen X-Ray 03/26/25 05:30 Impression: NG tube in satisfactory position. Chest X-Ray 03/27/25 06:22 Impression: Mild haziness left lung base, nonspecific. Correlate for minimal pulmonary edema or pneumonia. Support tubes, as above. <Kristi Jasmina Rhodes, Student - Last Filed: 03/27/25 09:19> Labs Labs: Laboratory Results - last 24 hr 03/26/25 03/26/25 03/26/25 08:27 08:52 08:56 WBC RBC Hgb Hct MCV MCH MCHC RDW Plt Count MPV Immature Gran % (Auto) Neut % (Auto) Lymph % (Auto) [place] % (Auto) Eos % (Auto) Baso % (Auto) Lymph # (Auto) [place] # (Auto) Eos # (Auto) Baso # (Auto) Abs Immat Gran (auto) Absolute Neuts (auto) Absolute Nucleated RBC Nucleated RBC % PT INR APTT Puncture Site Right radial ABG pH 7.399 ABG pCO2 45.0 ABG pO2 98.0 ABG PO2/FiO2 Ratio 2.80 ABG HCO3 27.2 H ABG O2 Saturation 97.4 ABG O2 Content 17.1 ABG Base Excess 1.9 A-a Gradient 99.2 Oxyhemoglobin 96.1 Carboxyhemoglobin Methemoglobin Reduced Hemoglobin Total Hemoglobin 12.6 O2 Delivery Device Ventilator O2 Liters/Min Not Reportable Minute Volume Not Reportable Vent Rate 18 Vent Mode Cmv FiO2 35 Tidal Volume 450 PEEP 5 Peak Inspir Pressure Not Reportable Pressure Support Not Reportable Sodium 141 Potassium 4.0 Chloride 106 Carbon Dioxide 28 Anion Gap 7 BUN 26 H Creatinine 1.23 Estim Creat Clear Calc 77 Estimated GFR > 60 Glucose 103 Lactic Acid Calcium 8.8 Phosphorus 4.5 Magnesium 2.2 Total Bilirubin 0.7 AST 31 ALT 23 Alkaline Phosphatase 57 Total Creatine Kinase 357 H Total Protein 7.0 Albumin 3.7 Influenza A (RT-PCR) Negative Influenza B (RT-PCR) Negative RSV (RT-PCR) Negative SARS-CoV-2 RNA (RT-PCR) Negative 03/26/25 03/27/25 03/27/25 12:14 03:49 04:07 WBC 6.9 RBC 3.87 L Hgb 10.9 L Hct 34.0 L MCV 87.9 MCH 28.2 MCHC 32.1 RDW 12.7 Plt Count 209 MPV 9.8 Immature Gran % (Auto) 0.1 Neut % (Auto) 76.3 H Lymph % (Auto) 12.9 L [place] % (Auto) 8.5 Eos % (Auto) 1.9 Baso % (Auto) 0.3 Lymph # (Auto) 0.89 L [place] # (Auto) 0.6 Eos # (Auto) 0.1 Baso # (Auto) 0.0 Abs Immat Gran (auto) 0.01 Absolute Neuts (auto) 5.3 Absolute Nucleated RBC 0.000 Nucleated RBC % 0.0 PT 14.2 INR 1.1 APTT 28.7 Puncture Site Right radial ABG pH 7.446 ABG pCO2 36.5 ABG pO2 64.1 L ABG PO2/FiO2 Ratio 2.14 ABG HCO3 24.6 ABG O2 Saturation 93.4 L ABG O2 Content 16.5 ABG Base Excess 0.8 A-a Gradient 106.9 Oxyhemoglobin 91.5 Carboxyhemoglobin 0.4 Methemoglobin 0.2 Reduced Hemoglobin 7.9 H Total Hemoglobin 12.8 O2 Delivery Device Ventilator O2 Liters/Min Not Reportable Minute Volume Not Reportable Vent Rate 18 Vent Mode Cmv FiO2 30 Tidal Volume 450 PEEP 8 Peak Inspir Pressure Not Reportable Pressure Support Not Reportable Sodium 137 Potassium 4.0 Chloride 102 Carbon Dioxide 27 Anion Gap 8 BUN 22 H Creatinine 0.97 Estim Creat Clear Calc 97 Estimated GFR > 60 Glucose 104 Lactic Acid 1.2 Calcium 8.6 Phosphorus 3.5 Magnesium 2.2 Total Bilirubin 0.8 AST 25 ALT 19 Alkaline Phosphatase 64 Total Creatine Kinase 201 H Total Protein 7.0 Albumin 3.7 Influenza A (RT-PCR) Influenza B (RT-PCR) RSV (RT-PCR) SARS-CoV-2 RNA (RT-PCR) 03/27/25 05:49 WBC 11.9 H RBC 4.67 Hgb 13.1 L Hct 41.8 L MCV 89.5 MCH 28.1 MCHC 31.3 L RDW 12.8 Plt Count 216 MPV 10.5 H Immature Gran % (Auto) 0.4 Neut % (Auto) 87.5 H Lymph % (Auto) 6.9 L [place] % (Auto) 4.9 Eos % (Auto) 0.1 Baso % (Auto) 0.2 Lymph # (Auto) 0.82 L [place] # (Auto) 0.6 Eos # (Auto) 0.0 Baso # (Auto) 0.0 Abs Immat Gran (auto) 0.05 H Absolute Neuts (auto) 10.4 H Absolute Nucleated RBC 0.000 Nucleated RBC % 0.0 PT INR APTT Puncture Site ABG pH ABG pCO2 ABG pO2 ABG PO2/FiO2 Ratio ABG HCO3 ABG O2 Saturation ABG O2 Content ABG Base Excess A-a Gradient Oxyhemoglobin Carboxyhemoglobin Methemoglobin Reduced Hemoglobin Total Hemoglobin O2 Delivery Device O2 Liters/Min Minute Volume Vent Rate Vent Mode FiO2 Tidal Volume PEEP Peak Inspir Pressure Pressure Support Sodium Potassium Chloride Carbon Dioxide Anion Gap BUN Creatinine Estim Creat Clear Calc Estimated GFR Glucose Lactic Acid Calcium Phosphorus Magnesium Total Bilirubin AST ALT Alkaline Phosphatase Total Creatine Kinase Total Protein Albumin Influenza A (RT-PCR) Influenza B (RT-PCR) RSV (RT-PCR) SARS-CoV-2 RNA (RT-PCR) <Kristi Rhodes, Student - Last Filed: 03/27/25 09:19> Quality VTE Prophylaxis VTE prophylaxis: pharmacologic ordered <Kristi Rhodes, Student - Last Filed: 03/27/25 09:19> Attestation Student Attestation H&P performed by AJRON Lucero-IV <Kristi Rhodes Student - Last Filed: 03/27/25 09:19>
[2025-03-27] MEDS: fentaNYL CITRATE INJ (*CRX) 100 MCG/2 ML VIAL 50 MCG IV PUSH ×3 (09:09→19:27)
--- NOTE | 2025-03-27 10:56 | PCNFU ---
Nutrition Follow-Up Complete: Suboptimal Energy Intake as related to mechanical vent as evidenced by NPO. Goal: Meet estimated nutritional needs. Patient will continue current goal. Pt current nutrition is Vital AF 1..2 at 10 ml/hr. Nutrition recommendation: goal rate 40 ml/hr. Last recorded weight is 90.3 kg, up from 86 kg Bowel Motility: No BM reported. Labs Reviewed: BUN 22, Hgb 13.1, Hct 41.8 Meds Noted: Vancomycin, Flagyl, Lovenox Skin: WNL Additional Notes: Patient remains on mechanical vent. Plans for head CT today. Tube feedings at 10 ml/hr 2/2 to elevated residuals. Plans to increase tube feedings today, goal rate recommended at 40 ml/hr. Total Nutrition including Propofol: 1705 kcal/66 gm protein/714 ml water. Tube feeding meeting 79% kcal needs at 25 kcal/kg and 64% protein needs at 1.2-1.4 gm/kg. Flush 30 ml q 4 hours. Recommend advancing to 70 ml/hr once Propofol infusion has been discontinued. Will monitor weight, labs, skin, diet orders, meds every Sunday and Sunday.
[2025-03-27] MEDS: MIDAZOLAM 100MG/NS 100ML(*CRX) 100 MG/100 ML BAG 10 MG IV CONT ×2 (10:57→21:00)
[2025-03-27] MEDS: VANCOMYCIN 1,500 MG/NS 500 ML 1,500 MG/500 ML BAG 250 MG IVPB (17:13)
[2025-03-28] VITALS (45 sets, daily range): BP systolic 93–121; BP diastolic 61–77; PULSE 69–89; RESP 17–26; TEMP 37.1–38.2; O2SAT 96–100
[2025-03-28] MEDS: fentaNYL CITRATE INJ (*CRX) 100 MCG/2 ML VIAL 50 MCG IV PUSH ×4 (00:21→18:30)
[2025-03-28] MEDS: ACETAMINOPHEN ELIXIR 325 MG/10.15 ML UDC 650 MG FEED TUBE ×3 (00:28→20:16)
[2025-03-28] MEDS: IPRATROPIUM 0.5 MG/ALBUTEROL SULFATE 2.5 MG AMPUL.NEB 3 ML INHALATION ×4 (01:59→20:09)
[2025-03-28] MEDS: PROPOFOL IV EMULSION 100 ML 24.6 MG IV CONT ×6 (03:40→20:00)
[2025-03-28] MEDS: CEFEPIME 2 GM/NS 50 ML 2 GM/50 ML BAG IVPB ×3 (04:30→20:16)
[2025-03-28 04:40] LABS: Basophils Percent Auto 0.3 % (0.2-1.2); Eosinophils Absolute Auto 0.1 K/mm3 (0-0.3); Hematocrit 34.7 % (42.0-52.0); Hemoglobin 11.1 g/dL (14.0-18.0); Immature Granulocyte Absolute 0.27 K/mm3 (0.00-0.031); Immature Granulocyte Percent A 2.3 % (0-0.5); Lymphocytes Absolute Auto 0.74 K/mm3 (0.9-3.2); Lymphocytes Percent Auto 6.2 % (18.3-44.2); Mean Corpuscular Hemoglobin 28.3 pg (26-34); Mean Corpuscular Volume 88.5 fl (80-100); Mean Platelet Volume 10.6 fl (7.4-10.4); Monocytes Absolute Auto 0.6 K/mm3 (0.1-0.6); Monocytes Percent Auto 4.7 % (2.6-8.5); Neutrophils Absolute Auto 10.2 K/mm3 (1.3-6.7); Neutrophils Percent Auto 85.5 % (45.5-73.1); Platelet Count Result 180 k/mm3 (150-375); Red Blood Count 3.92 M/mm3 (4.6-6.20); Red Cell Distribution Width 12.9 % (11.5-14.5); White Blood Count 11.9 K/mm3 (4.5-10.0)
[2025-03-28 04:43] LABS: Alanine Aminotransferase 21 U/L (6-50); Albumin Level 3.2 g/dL (3.5-5.1); Alkaline Phosphatase 65 U/L (38-126); Anion Gap 4 mmol/L (4-12); Aspartate Amino Transferase 21 U/L (17-59); Bilirubin,Total 0.6 mg/dL (0.2-1.3); Blood Urea Nitrogen 22 mg/dL (9-20); Calcium 8.3 mg/dL (8.4-10.2); Carbon Dioxide 28 mmol/L (22-30); Chloride 103 mmol/L (98-107); Creatine Kinase 56 U/L (55-170); Estimated CRCL calculation 90 ml/min; Estimated Glomerular Filt Rate > 60; Glucose 114 mg/dL (65-110); Magnesium 2.5 mg/dL (1.6-2.3); Phosphorus 2.9 mg/dL (2.5-4.5); Potassium 4.1 mmol/L (3.4-5.0); Sodium 135 mmol/L (137-145)
[2025-03-28 04:49] LABS: Alveolar/Arterial O2 Gradient 103.1 mmHg; Base Excess ABG -0.5 mEq/l (+/-2.0); Carboxyhemoglobin 0.2 % THb (0-2.0); Fractional Inspired Oxygen 30 %; HCO3 ABG 23.7 mEq/l (22.0-26.0); Methemoglobin ABG 0.2 %THb (0-1.5); Oxygen Content ABG 15.4 %vol (16.0-22.0); Oxygen Saturation ABG 93.7 % (95.0-100.0); Oxyhemoglobin 91.8 % THb (90.0-100.0); PCO2 ABG 37.4 mmHg (35.0-45.0); PO2 ABG 66.9 mmHg (80.0-100.0); PO2 FiO2 Ratio Arterial Blood 2.23 %; Reduced Hemoglobin 7.8 %THb (0-5.0); Total Hemoglobin 11.9 g/dL (12.0-18.0)
[2025-03-28 04:51] LABS: Arterial Blood Gas PEEP 5 cmH2O; Arterial Blood Gas Vent Mode CMV; Arterial Blood Gas Ventilator rate 18 /MIN; Device VENTILATOR; Modified Allen's Test Pass; Site Drawn LEFT RADIAL
[2025-03-28 04:52] LABS: Arterial Blood Gas Tidal Volume 450 ml
[2025-03-28] MEDS: metroNIDAZOLE 500 MG/ISO 100ML 500 MG/100 ML BAG 100 MG IVPB ×3 (05:03→21:57)
[2025-03-28] MEDS: VANCOMYCIN 1,500 MG/NS 500 ML 1,500 MG/500 ML BAG 250 MG IVPB ×2 (06:05→18:30)
[2025-03-28] MEDS: MIDAZOLAM 100MG/NS 100ML(*CRX) 100 MG/100 ML BAG 10 MG IV CONT ×2 (07:30→18:32)
--- NOTE | 2025-03-28 09:00 | P.PNINT_ITS ---
Progress Note: A&P Assessment and Plan (1) Overdose of sympathomimetic agent: Code(s): T44.901A - Poisoning by unspecified drugs primarily affecting the autonomic nervous system, accidental (unintentional), initial encounter <Chiquita Max - Last Filed: 03/28/25 09:10> Status: Acute <Chiquita Max - Last Filed: 03/28/25 09:10> Assessment and Plan: Patient presented after overdose on fentanyl/amphetamine -patient on sympathomimetic symptoms upon arrival -treated with Versed -03/26: was intubated due to being combative and agitated, according the notes required 8 staff members to hold him down -currently sedated with Versed and propofol infusion -off fluids <Chiquita Max - Last Filed: 03/28/25 09:10> Patient presented after overdose on fentanyl/amphetamine -patient on sympathomimetic symptoms upon arrival -treated with Versed -03/26: was intubated due to being combative and agitated, according the notes required 8 staff members to hold him down -currently sedated with Versed and propofol infusion -off fluids -03/27: The patient's girlfriend stated that that he is a IV drug user <Luis Fernando Mars MD - Last Filed: 03/28/25 12:39> (2) On mechanically assisted ventilation: Code(s): Z99.11 - Dependence on respirator [ventilator] status <Chiquita Max - Last Filed: 03/28/25 09:10> Status: Acute <Chiquita Max - Last Filed: 03/28/25 09:10> Assessment and Plan: Patient was agitated, combative in the ER -intubated with etomidate and rocuronium -currently on CMV mode of ventilation, peep of 5, 30% FiO2 -chest x-ray and ABGs reviewed -on Versed and propofol infusion for sedation 03/27: CTA chest No evidence of PE, aortic dissection item aneurysm. Extensive bilateral lower lobe airspace consolidation, suspicious for bilateral pneumonia versus atelectasis, left worse than right -currently on Cefepime, Vancomycin, and Metronidazole for suspected aspiration pneumonia (started 03/27) <Chiquita Max - Last Filed: 03/28/25 09:10> Patient was agitated, combative in the ER -intubated with etomidate and rocuronium -currently on CMV mode of ventilation, peep of 5, 30% FiO2 -chest x-ray and ABGs reviewed -on Versed and propofol infusion for sedation -Daily SBT and SAT 03/27: CTA chest No evidence of PE, aortic dissection item aneurysm. 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 amphetamine use once he is extubated <Kristi Pedrokenny Student - Last Filed: 03/28/25 09:10> (4) Acute kidney injury: Code(s): N17.9 - Acute kidney failure, unspecified <Kristi Rhodes, Student - Last Filed: 03/28/25 09:10> Status: Acute <Kristi Rhodes Student - Last Filed: 03/28/25 09:10> Assessment and Plan: Likely related to sympathomimetic symptoms, hypovolemia -creatinine improved -continue to monitor urine output, renal function and electrolytes <Kristi Rhodes Student - Last Filed: 03/28/25 09:10> (5) Sepsis: Code(s): A41.9 - Sepsis, unspecified organism <Kristi Pedrokenny Student - Last Filed: 03/28/25 09:10> Status: Acute <Kristi Rhodes Student - Last Filed: 03/28/25 09:10> Assessment and Plan: Fevers, thick sputum, ventilator dysynchrony Since he is a IV drug user blood cultures were obtained on 03/27: which have been negative so far 03/27: Sputum Cx negative Continue cefepime, vancomycin and Flagyl (03/27) -fever curve resolving 03/27: CTA chest Impression: No evidence of pulmonary embolus, aortic dissection, or aortic aneurysm. Extensive bilateral lower lobe airspace consolidation is suspicious for bilateral pneumonia versus possibly atelectasis, left worse than right. 03/27: CT brain No acute abnormality. No change from prior exam. 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 Overlying postoperative change of the frontal bones. <Luis Fernando Mars MD - Last Filed: 03/28/25 12:39> Assessment and Plan: DVT prophylaxis: Lovenox Stress ulcer prophylaxis: Protonix Nutrition: Start tube feeds Code Status: Full code Critical Care Time Spent: 33 minutes Discussed with patient's family in rounds and updated them with patient's condition and plan of care. I answered all questions. The patient's girlfriend stated that that he is a IV drug user Due to a high probability of clinically significant, life threatening deterioration, the patient required my highest level of preparedness to intervene emergently and I personally spent this critical care time directly and personally managing the patient. This critical care time included obtaining a history; examining the patient; pulse oximetry; ordering and review of studies; arranging urgent treatment with development of a management plan; evaluation of patient's response to treatment; frequent reassessment; and discussions with other providers. It was exclusive of separately billable procedures and treating other patients and teaching time. Please see Assessment and Plan section and the rest of the note for further information on patient assessment and treatment This dictation may have been done utilizing a voice recognition system. Attempts have been made to correct errors. However, there may be uncorrected grammatical, spelling, and recognitions errors present. <Kristi Rhodes, Student - Last Filed: 03/28/25 09:10> DVT prophylaxis: Lovenox Stress ulcer prophylaxis: Protonix Nutrition: contiue tube feeds Code Status: Full code Critical Care Time Spent: 33 minutes Discussed with patient's family in rounds and updated them with patient's condition and plan of care. I answered all questions. Due to a high probability of clinically significant, life threatening deterioration, the patient required my highest level of preparedness to intervene emergently and I personally spent this critical care time directly and personally managing the patient. This critical care time included obtaining a history; examining the patient; pulse oximetry; ordering and review of studies; arranging urgent treatment with development of a management plan; evaluation of patient's response to treatment; frequent reassessment; and discussions with other providers. It was exclusive of separately billable procedures and treating other patients and teaching time. Please see Assessment and Plan section and the rest of the note for further information on patient assessment and treatment This dictation may have been done utilizing a voice recognition system. Attempts have been made to correct errors. However, there may be uncorrected grammatical, spelling, and recognitions errors present. <Luis Fernando Mars MD - Last Filed: 03/28/25 12:39> Subjective Date/time seen: 03/28/25 09:00 <Chiquita Max - Last Filed: 03/28/25 09:10> Interval history: 03/26- Intubated 03/27- CTA Chest c/w pneumonia, cefepime, vancomycin, and metronidazole started 03/28- Pt seen and evaluated in the ICU this morning. He remains intubated on CMV mode of ventilation, peep of 5, 30% FiO2. Sedated with propofol and Versed infusion. Urine output has been adequate, hemodynamically stable. Patient does not open his eyes or follow simple commands. Febrile to a T-max of 100.4 overnight. <Chiquita Max - Last Filed: 03/28/25 09:10> Review of Systems Review of Systems: ROS unobtainable: Yes unobtainable due to endotracheal tube and unobtainable due to mental status <Kristi Rhodes Student - Last Filed: 03/28/25 09:10> Exam Narrative: General: Well-built gentleman in no acute distress HEENT:? Pupils equal and sluggish, sclera is clear, ETT in place Neck:? Supple Respiratory:? Clear to auscultation bilaterally, no wheezing, adequate air entry Cardiac:? S1-S2 normal, regular rate and rhythm Abdomen:? Soft, nontender nondistended, hypoactive bowel sounds Extremities:? No edema, palpable pedal pulses Neuro:? Patient intubated, sedated with Propofol and Versed, does not follows simple commands, does not withdraw to pain Skin:? Warm and dry, no lesions noted Psych:? Unable to assess at this time <Kristi Rhodes, Student - Last Filed: 03/28/25 09:10> Objective Data Vital Signs Vital Signs: Vital Signs - 24 hr 03/27/25 10:00 03/27/25 10:00 03/27/25 10:00 Temperature 99.4 F Pulse Rate 86 86 87 Respiratory Rate 25 H 21 H Blood Pressure 137/76 Pulse Oximetry 99 Oxygen Delivery Fraction of Inspired Oxygen 03/27/25 10:57 03/27/25 10:57 03/27/25 11:01 Temperature Pulse Rate 84 84 85 Respiratory Rate 25 H 25 H Blood Pressure Pulse Oximetry 100 Oxygen Delivery Mechanical Ventilation Fraction of Inspired Oxygen 30 03/27/25 11:26 03/27/25 12:00 03/27/25 12:00 Temperature Pulse Rate 85 86 84 Respiratory Rate 25 H 26 H 24 H Blood Pressure Pulse Oximetry 98 Oxygen Delivery Mechanical Ventilation Fraction of Inspired Oxygen 30 03/27/25 12:00 03/27/25 12:00 03/27/25 12:00 Temperature 99.1 F Pulse Rate 86 86 Respiratory Rate 22 H Blood Pressure 133/76 Pulse Oximetry 99 Oxygen Delivery Fraction of Inspired Oxygen 30 03/27/25 12:11 03/27/25 12:16 03/27/25 14:00 Temperature Pulse Rate 86 86 85 Respiratory Rate 27 H 27 H 26 H Blood Pressure Pulse Oximetry Oxygen Delivery Fraction of Inspired Oxygen 03/27/25 14:00 03/27/25 14:00 03/27/25 14:00 Temperature 98.7 F Pulse Rate 85 86 86 Respiratory Rate 27 H 27 H Blood Pressure 132/67 Pulse Oximetry 100 Oxygen Delivery Fraction of Inspired Oxygen 03/27/25 14:35 03/27/25 16:00 03/27/25 16:00 Temperature 99.1 F Pulse Rate 86 86 86 Respiratory Rate 22 H 21 H Blood Pressure 119/75 Pulse Oximetry 100 100 Oxygen Delivery Mechanical Ventilation Fraction of Inspired Oxygen 03/27/25 16:00 03/27/25 16:00 03/27/25 16:00 Temperature Pulse Rate 86 86 Respiratory Rate 21 H Blood Pressure Pulse Oximetry 100 Oxygen Delivery Mechanical Ventilation Fraction of Inspired Oxygen 30 30 03/27/25 16:10 03/27/25 16:10 03/27/25 17:51 Temperature Pulse Rate 86 86 85 Respiratory Rate 21 H 21 H Blood Pressure Pulse Oximetry 100 Oxygen Delivery Mechanical Ventilation Fraction of Inspired Oxygen 03/27/25 18:00 03/27/25 18:00 03/27/25 18:00 Temperature 99.6 F Pulse Rate 85 85 85 Respiratory Rate 16 16 Blood Pressure 115/68 Pulse Oximetry 100 Oxygen Delivery Fraction of Inspired Oxygen 03/27/25 18:00 03/27/25 19:56 03/27/25 20:00 Temperature Pulse Rate 85 86 Respiratory Rate 14 Blood Pressure Pulse Oximetry 100 Oxygen Delivery Mechanical Ventilation Fraction of Inspired Oxygen 30 03/27/25 20:00 03/27/25 20:00 03/27/25 20:00 Temperature 99.1 F Pulse Rate 87 87 87 Respiratory Rate 19 18 Blood Pressure 116/67 Pulse Oximetry 100 100 Oxygen Delivery Mechanical Ventilation Fraction of Inspired Oxygen 30 03/27/25 20:00 03/27/25 20:00 03/27/25 20:00 Temperature Pulse Rate 86 86 86 Respiratory Rate 22 H 22 H 22 H Blood Pressure Pulse Oximetry Oxygen Delivery Fraction of Inspired Oxygen 03/27/25 21:00 03/27/25 21:00 03/27/25 22:00 Temperature 100 F H Pulse Rate 87 87 89 Respiratory Rate 18 18 24 H Blood Pressure 114/64 Pulse Oximetry 96 Oxygen Delivery Fraction of Inspired Oxygen 03/27/25 22:00 03/27/25 22:00 03/27/25 22:00 Temperature Pulse Rate 89 89 89 Respiratory Rate 17 17 Blood Pressure Pulse Oximetry Oxygen Delivery Fraction of Inspired Oxygen 03/27/25 22:26 03/28/25 00:00 03/28/25 00:00 Temperature 100.4 F H Pulse Rate 88 88 89 Respiratory Rate 24 H 18 Blood Pressure 121/69 Pulse Oximetry 97 99 Oxygen Delivery Mechanical Ventilation Fraction of Inspired Oxygen 03/28/25 00:00 03/28/25 00:00 03/28/25 00:00 Temperature Pulse Rate 89 89 89 Respiratory Rate 18 18 18 Blood Pressure Pulse Oximetry 100 Oxygen Delivery Mechanical Ventilation Fraction of Inspired Oxygen 30 03/28/25 00:00 03/28/25 00:00 03/28/25 00:28 Temperature 100.4 F H Pulse Rate 89 Respiratory Rate Blood Pressure Pulse Oximetry Oxygen Delivery Fraction of Inspired Oxygen 30 03/28/25 01:28 03/28/25 01:59 03/28/25 02:00 Temperature 100.1 F H 99.9 F H Pulse Rate 86 86 Respiratory Rate 18 26 H Blood Pressure 115/64 Pulse Oximetry 98 Oxygen Delivery Fraction of Inspired Oxygen 03/28/25 02:00 03/28/25 02:00 03/28/25 02:00 Temperature Pulse Rate 86 86 86 Respiratory Rate 21 H 21 H Blood Pressure Pulse Oximetry Oxygen Delivery Fraction of Inspired Oxygen 03/28/25 02:01 03/28/25 02:13 03/28/25 03:40 Temperature Pulse Rate 86 87 85 Respiratory Rate 18 18 Blood Pressure Pulse Oximetry 98 Oxygen Delivery Mechanical Ventilation Fraction of Inspired Oxygen 03/28/25 03:40 03/28/25 04:00 03/28/25 04:00 Temperature Pulse Rate 85 86 86 Respiratory Rate 18 17 18 Blood Pressure Pulse Oximetry Oxygen Delivery Fraction of Inspired Oxygen 03/28/25 04:00 03/28/25 04:00 03/28/25 04:00 Temperature Pulse Rate 89 87 Respiratory Rate 18 Blood Pressure Pulse Oximetry 100 Oxygen Delivery Mechanical Ventilation Fraction of Inspired Oxygen 30 30 03/28/25 04:00 03/28/25 04:40 03/28/25 06:00 Temperature 99.7 F H Pulse Rate 86 86 69 Respiratory Rate 18 24 H Blood Pressure 111/77 Pulse Oximetry 100 100 Oxygen Delivery Mechanical Ventilation Fraction of Inspired Oxygen 03/28/25 06:00 03/28/25 06:00 03/28/25 06:00 Temperature 100.2 F H Pulse Rate 69 89 88 Respiratory Rate 24 H 24 H Blood Pressure 105/76 Pulse Oximetry 96 Oxygen Delivery Fraction of Inspired Oxygen 03/28/25 07:00 03/28/25 07:30 03/28/25 07:34 Temperature Pulse Rate 83 83 82 Respiratory Rate 20 20 20 Blood Pressure Pulse Oximetry Oxygen Delivery Fraction of Inspired Oxygen 03/28/25 07:34 03/28/25 07:57 03/28/25 08:00 Temperature 99.3 F Pulse Rate 82 81 Respiratory Rate 20 19 Blood Pressure 97/63 L Pulse Oximetry 96 Oxygen Delivery Fraction of Inspired Oxygen 03/28/25 08:10 03/28/25 08:10 03/28/25 08:23 Temperature Pulse Rate 80 80 81 Respiratory Rate 18 19 Blood Pressure Pulse Oximetry 97 Oxygen Delivery Mechanical Ventilation Fraction of Inspired Oxygen 03/28/25 08:34 Temperature Pulse Rate Respiratory Rate Blood Pressure 103/65 Pulse Oximetry Oxygen Delivery Fraction of Inspired Oxygen <Kristi Freedman Carmelo, Student - Last Filed: 03/28/25 09:10> Intake/Output Intake/Output: Intake & Output 03/25/25 03/26/25 03/27/25 03/28/25 23:59 23:59 23:59 23:59 Intake Total 2674.2 2004.0 844.3 Output Total 600 1250 600 Balance 2074.2 754.0 244.3 <Kristi Freedman Carmelo, Student - Last Filed: 03/28/25 09:10> Meds/Results Medications: Active Medications Generic Name Dose Route Start Last Admin Trade Name Freq PRN Reason Stop Dose Admin Acetaminophen 650 mg 03/26/25 20:27 03/28/25 00:28 Acetaminophen Elixir 325 Mg/10.15 Ml Udc FEED TUBE 650 mg Q6H PRN Administration Mild Pain (1-3) or Fever Albuterol/Ipratropium 3 ml 03/28/25 08:15 03/28/25 08:14 Ipratropium 0.5 Mg/Albuterol Sulfate 2.5 Mg Ampul.Neb 3 Ml INHALATION 3 ml Q6HRT SHANE Administration Enoxaparin Sodium 40 mg 03/27/25 09:00 03/27/25 08:06 Enoxaparin 40 Mg/0.4 Ml Syringe SUB-Q 40 mg DAILY SHANE Administration Fentanyl Citrate 50 mcg 03/27/25 13:57 03/28/25 06:05 Fentanyl Citrate Inj (*Crx) 100 Mcg/2 Ml Vial IV PUSH 50 mcg Q4H PRN Administration Sedation Midazolam HCl 100 mg in 100 mls @ 10 mls/hr 03/26/25 01:15 03/28/25 07:30 Versed 100 Mg/Ns 100 Ml IV CONT 10 mg/hr .Q10H SHANE 10 mls/hr Administration Protocol 10 MG/HR Propofol 100 mls @ 24.597 mls/hr 03/26/25 02:20 03/28/25 07:34 Diprivan IV CONT 45 mcg/kg/min .Q4H4M SHANE 24.6 mls/hr Administration Protocol 45 MCG/KG/MIN Cefepime HCl 2 gm in 50 mls @ 100 mls/hr 03/27/25 05:00 03/28/25 05:00 Maxipime 2 Gm/Ns 50 Ml IVPB Infused Q8H SHANE Infusion Vancomycin HCl 1,500 mg in 500 mls @ 250 mls/hr 03/27/25 18:00 03/28/25 06:05 Vancomycin 1,500 Mg/Ns 500 Ml IVPB 250 mls/hr Q12H SHANE Administration Metronidazole 500 mg in 100 mls @ 100 mls/hr 03/27/25 06:00 03/28/25 06:05 Flagyl 500 Mg/Iso Soln 100 Ml IVPB Infused Q8H SHANE Infusion Pantoprazole Sodium 40 mg 03/27/25 09:00 03/27/25 08:06 Pantoprazole Sodium Iv 40 Mg Vial IV PUSH 40 mg QAM SHANE Administration <Kristi Rhodes Student - Last Filed: 03/28/25 09:10> Radiology Results: ITS Impressions Abdomen X-Ray 03/26/25 05:30 Impression: NG tube in satisfactory position. Head CT 03/27/25 10:57 Impression: No acute abnormality. No change from prior exam. 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 Overlying postoperative change of the frontal bones. Chest CTA 03/27/25 10:58 Impression: No evidence of pulmonary embolus, aortic dissection, or aortic aneurysm. Extensive bilateral lower lobe airspace consolidation is suspicious for bilateral pneumonia versus possibly atelectasis, left worse than right. Chest X-Ray 03/28/25 07:15 IMPRESSION: 1. Patchy airspace opacities in the bilateral lower lung zones consistent with pneumonia. <Kristi Rhodes, Student - Last Filed: 03/28/25 09:10> Labs Labs: Laboratory Results - last 24 hr 03/28/25 03/28/25 03:44 04:30 WBC 11.9 H RBC 3.92 L Hgb 11.1 L Hct 34.7 L MCV 88.5 MCH 28.3 MCHC 32.0 RDW 12.9 Plt Count 180 MPV 10.6 H Immature Gran % (Auto) 2.3 H Neut % (Auto) 85.5 H Lymph % (Auto) 6.2 L Terry % (Auto) 4.7 Eos % (Auto) 1.0 Baso % (Auto) 0.3 Lymph # (Auto) 0.74 L Terry # (Auto) 0.6 Eos # (Auto) 0.1 Baso # (Auto) 0.0 Abs Immat Gran (auto) 0.27 H Absolute Neuts (auto) 10.2 H Absolute Nucleated RBC 0.000 Nucleated RBC % 0.0 Puncture Site Left radial ABG pH 7.420 ABG pCO2 37.4 ABG pO2 66.9 L ABG PO2/FiO2 Ratio 2.23 ABG HCO3 23.7 ABG O2 Saturation 93.7 L ABG O2 Content 15.4 L ABG Base Excess -0.5 A-a Gradient 103.1 Oxyhemoglobin 91.8 Carboxyhemoglobin 0.2 Methemoglobin 0.2 Reduced Hemoglobin 7.8 H Total Hemoglobin 11.9 L O2 Delivery Device Ventilator O2 Liters/Min Not Reportable Minute Volume Not Reportable Vent Rate 18 Vent Mode Cmv FiO2 30 Tidal Volume 450 PEEP 5 Peak Inspir Pressure Not Reportable Pressure Support Not Reportable Sodium 135 L Potassium 4.1 Chloride 103 Carbon Dioxide 28 Anion Gap 4 BUN 22 H Creatinine 1.05 Estim Creat Clear Calc 90 Estimated GFR > 60 Glucose 114 H Lactic Acid 1.0 Calcium 8.3 L Phosphorus 2.9 Magnesium 2.5 H Total Bilirubin 0.6 AST 21 ALT 21 Alkaline Phosphatase 65 Total Creatine Kinase 56 Total Protein 6.0 L Albumin 3.2 L <Kristi Rhodes, Student - Last Filed: 03/28/25 09:10> Quality VTE Prophylaxis VTE prophylaxis: pharmacologic ordered <Kristi Rhodes, Student - Last Filed: 03/28/25 09:10> Attestation Student Attestation H&P performed by JARON Lucero-IV <Kristi Rhodes, Student - Last Filed: 03/28/25 09:10>
[2025-03-28] MEDS: ENOXAPARIN 40 MG/0.4 ML SYRINGE SUB-Q (10:20)
[2025-03-28] MEDS: PANTOPRAZOLE SODIUM IV 40 MG VIAL IV PUSH (10:20)
--- NOTE | 2025-03-28 17:43 | P.PNIM_ITS ---
Progress Note: A&P Assessment and Plan (1) Overdose of sympathomimetic agent: Code(s): T44.901A - Poisoning by unspecified drugs primarily affecting the autonomic nervous system, accidental (unintentional), initial encounter Status: Acute Assessment and Plan: Patient presented after overdose on fentanyl/amphetamine -patient on sympathomimetic symptoms upon arrival -treated with Versed -03/26: was intubated due to being combative and agitated, according the notes required 8 staff members to hold him down -currently sedated with Versed and propofol infusion -off fluids -03/27: The patient's girlfriend stated that that he is a IV drug user (2) On mechanically assisted ventilation: Code(s): Z99.11 - Dependence on respirator [ventilator] status Status: Acute Assessment and Plan: Patient was agitated, combative in the ER -intubated with etomidate and rocuronium -currently on CMV mode of ventilation, peep of 5, 30% FiO2 -chest x-ray and ABGs reviewed -on Versed and propofol infusion for sedation -Daily SBT and SAT 03/27: CTA chest No evidence of PE, aortic dissection item aneurysm. Extensive bilateral lower lobe airspace consolidation, suspicious for bilateral pneumonia versus atelectasis, left worse than right -currently on Cefepime, Vancomycin, and Metronidazole for suspected aspiration pneumonia (started 03/27) (3) Amphetamine abuse: Code(s): F15.10 - Other stimulant abuse, uncomplicated Status: Acute Assessment and Plan: Continue benzodiazepine -will weight loss counselor patient on cessation of amphetamine use once he is extubated (4) Acute kidney injury: Code(s): N17.9 - Acute kidney failure, unspecified Status: Acute Assessment and Plan: Likely related to sympathomimetic symptoms, hypovolemia -creatinine improved -continue to monitor urine output, renal function and electrolytes (5) Sepsis: Code(s): A41.9 - Sepsis, unspecified organism Status: Acute Assessment and Plan: Fevers, thick sputum, ventilator dysynchrony Since he is a IV drug user blood cultures were obtained on 03/27: which have been negative so far 03/27: Sputum Cx negative Continue cefepime, vancomycin and Flagyl (03/27) -fever curve resolving 03/27: CTA chest Impression: No evidence of pulmonary embolus, aortic dissection, or aortic aneurysm. Extensive bilateral lower lobe airspace consolidation is suspicious for bilateral pneumonia versus possibly atelectasis, left worse than right. 03/27: CT brain No acute abnormality. No change from prior exam. 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 Overlying postoperative change of the frontal bones. Plan DVT prophylaxis: Lovenox Stress ulcer prophylaxis: Protonix Nutrition: continue tube feeds Code Status: Full code Subjective Date/time seen: 03/28/25 17:43 Interval history: Intubated at bedside at the time of this encounter Review of Systems Review of Systems: Unable to do ROS as patient was intubated and sedated ROS unobtainable: Yes unobtainable due to endotracheal tube and unobtainable due to mental status Exam Narrative: General: intubated and sedated Eyes: EOMI, PERRLA ENNT External ears normal, Neck is supple, no masses, Respiratory systems: Clear to auscultation Cardiovascular S1, S2, normal rhythm, no murmur, rub, or gallop; no thrill or palpable murmurs on palpation. Gastrointestinal: soft, non-tender, and non-distended abdomen with no masses; BS present Skin: no rash, lesions, ulcerations, subcutaneous nodules or induration Musculoskeletal: no abnormality and no tenderness, normal ROM Neurologic: intubated and sedated Objective Data Vital Signs Vital Signs: Vital Signs - 24 hr 03/27/25 17:51 03/27/25 18:00 03/27/25 18:00 Temperature 99.6 F Pulse Rate 85 85 85 Respiratory Rate 16 Blood Pressure 115/68 Pulse Oximetry 100 100 Oxygen Delivery Mechanical Ventilation Fraction of Inspired Oxygen 03/27/25 18:00 03/27/25 18:00 03/27/25 19:56 Temperature Pulse Rate 85 85 86 Respiratory Rate 16 14 Blood Pressure Pulse Oximetry 100 Oxygen Delivery Mechanical Ventilation Fraction of Inspired Oxygen 03/27/25 20:00 03/27/25 20:00 03/27/25 20:00 Temperature Pulse Rate 87 87 Respiratory Rate 19 Blood Pressure Pulse Oximetry 100 Oxygen Delivery Mechanical Ventilation Fraction of Inspired Oxygen 30 30 03/27/25 20:00 03/27/25 20:00 03/27/25 20:00 Temperature 99.1 F Pulse Rate 87 86 86 Respiratory Rate 18 22 H 22 H Blood Pressure 116/67 Pulse Oximetry 100 Oxygen Delivery Fraction of Inspired Oxygen 03/27/25 20:00 03/27/25 21:00 03/27/25 21:00 Temperature Pulse Rate 86 87 87 Respiratory Rate 22 H 18 18 Blood Pressure Pulse Oximetry Oxygen Delivery Fraction of Inspired Oxygen 03/27/25 22:00 03/27/25 22:00 03/27/25 22:00 Temperature 100 F H Pulse Rate 89 89 89 Respiratory Rate 24 H 17 Blood Pressure 114/64 Pulse Oximetry 96 Oxygen Delivery Fraction of Inspired Oxygen 03/27/25 22:00 03/27/25 22:26 03/28/25 00:00 Temperature 100.4 F H Pulse Rate 89 88 88 Respiratory Rate 17 24 H Blood Pressure 121/69 Pulse Oximetry 97 99 Oxygen Delivery Mechanical Ventilation Fraction of Inspired Oxygen 03/28/25 00:00 03/28/25 00:00 03/28/25 00:00 Temperature Pulse Rate 89 89 89 Respiratory Rate 18 18 18 Blood Pressure Pulse Oximetry Oxygen Delivery Fraction of Inspired Oxygen 03/28/25 00:00 03/28/25 00:00 03/28/25 00:00 Temperature Pulse Rate 89 89 Respiratory Rate 18 Blood Pressure Pulse Oximetry 100 Oxygen Delivery Mechanical Ventilation Fraction of Inspired Oxygen 30 30 03/28/25 00:28 03/28/25 01:28 03/28/25 01:59 Temperature 100.4 F H 100.1 F H Pulse Rate 86 Respiratory Rate 18 Blood Pressure Pulse Oximetry Oxygen Delivery Fraction of Inspired Oxygen 03/28/25 02:00 03/28/25 02:00 03/28/25 02:00 Temperature 99.9 F H Pulse Rate 86 86 86 Respiratory Rate 26 H 21 H Blood Pressure 115/64 Pulse Oximetry 98 Oxygen Delivery Fraction of Inspired Oxygen 03/28/25 02:00 03/28/25 02:01 03/28/25 02:13 Temperature Pulse Rate 86 86 87 Respiratory Rate 21 H 18 Blood Pressure Pulse Oximetry 98 Oxygen Delivery Mechanical Ventilation Fraction of Inspired Oxygen 03/28/25 03:40 03/28/25 03:40 03/28/25 04:00 Temperature Pulse Rate 85 85 86 Respiratory Rate 18 18 17 Blood Pressure Pulse Oximetry Oxygen Delivery Fraction of Inspired Oxygen 03/28/25 04:00 03/28/25 04:00 03/28/25 04:00 Temperature Pulse Rate 86 89 87 Respiratory Rate 18 18 Blood Pressure Pulse Oximetry 100 Oxygen Delivery Mechanical Ventilation Fraction of Inspired Oxygen 30 03/28/25 04:00 03/28/25 04:00 03/28/25 04:40 Temperature 99.7 F H Pulse Rate 86 86 Respiratory Rate 18 Blood Pressure 111/77 Pulse Oximetry 100 100 Oxygen Delivery Mechanical Ventilation Fraction of Inspired Oxygen 30 03/28/25 06:00 03/28/25 06:00 03/28/25 06:00 Temperature 100.2 F H Pulse Rate 69 69 89 Respiratory Rate 24 H 24 H 24 H Blood Pressure 105/76 Pulse Oximetry 96 Oxygen Delivery Fraction of Inspired Oxygen 03/28/25 06:00 03/28/25 07:00 03/28/25 07:30 Temperature Pulse Rate 88 83 83 Respiratory Rate 20 20 Blood Pressure Pulse Oximetry Oxygen Delivery Fraction of Inspired Oxygen 03/28/25 07:34 03/28/25 07:34 03/28/25 07:57 Temperature 99.3 F Pulse Rate 82 82 81 Respiratory Rate 20 20 19 Blood Pressure Pulse Oximetry 96 Oxygen Delivery Fraction of Inspired Oxygen 03/28/25 08:00 03/28/25 08:00 03/28/25 08:00 Temperature Pulse Rate 78 Respiratory Rate 22 H Blood Pressure 97/63 L Pulse Oximetry 98 Oxygen Delivery Mechanical Ventilation Fraction of Inspired Oxygen 30 30 03/28/25 08:00 03/28/25 08:10 03/28/25 08:10 Temperature Pulse Rate 81 80 80 Respiratory Rate 18 Blood Pressure Pulse Oximetry 97 Oxygen Delivery Mechanical Ventilation Fraction of Inspired Oxygen 30 03/28/25 08:23 03/28/25 08:34 03/28/25 09:40 Temperature Pulse Rate 81 82 Respiratory Rate 19 20 Blood Pressure 103/65 Pulse Oximetry Oxygen Delivery Fraction of Inspired Oxygen 03/28/25 09:40 03/28/25 10:00 03/28/25 10:00 Temperature 98.8 F Pulse Rate 82 78 78 Respiratory Rate 20 22 H Blood Pressure 93/61 L Pulse Oximetry 98 Oxygen Delivery Fraction of Inspired Oxygen 03/28/25 10:25 03/28/25 11:50 03/28/25 11:50 Temperature Pulse Rate 79 81 81 Respiratory Rate 21 H 21 H Blood Pressure Pulse Oximetry 99 Oxygen Delivery Mechanical Ventilation Fraction of Inspired Oxygen 30 03/28/25 11:50 03/28/25 12:00 03/28/25 12:00 Temperature 99.5 F Pulse Rate 81 81 Respiratory Rate 21 H 22 H Blood Pressure 98/63 L Pulse Oximetry 100 Oxygen Delivery Fraction of Inspired Oxygen 30 03/28/25 12:00 03/28/25 12:00 03/28/25 13:50 Temperature Pulse Rate 78 81 85 Respiratory Rate 22 H 23 H Blood Pressure Pulse Oximetry 98 Oxygen Delivery Mechanical Ventilation Fraction of Inspired Oxygen 30 03/28/25 13:50 03/28/25 13:56 03/28/25 14:00 Temperature 100.2 F H Pulse Rate 85 85 87 Respiratory Rate 21 H 22 H Blood Pressure 99/61 L Pulse Oximetry 100 99 Oxygen Delivery Mechanical Ventilation Fraction of Inspired Oxygen 30 03/28/25 14:00 03/28/25 14:00 03/28/25 15:06 Temperature Pulse Rate 84 82 87 Respiratory Rate 20 21 H 24 H Blood Pressure Pulse Oximetry Oxygen Delivery Fraction of Inspired Oxygen 03/28/25 15:06 03/28/25 15:32 03/28/25 15:35 Temperature Pulse Rate 87 86 Respiratory Rate 24 H 20 Blood Pressure Pulse Oximetry Oxygen Delivery Fraction of Inspired Oxygen 30 03/28/25 15:36 03/28/25 15:38 03/28/25 16:00 Temperature 100.3 F H Pulse Rate 78 81 87 Respiratory Rate 22 H 25 H Blood Pressure 105/64 Pulse Oximetry 98 96 Oxygen Delivery Mechanical Ventilation Fraction of Inspired Oxygen 30 03/28/25 16:25 Temperature Pulse Rate 87 Respiratory Rate Blood Pressure Pulse Oximetry 96 Oxygen Delivery Mechanical Ventilation Fraction of Inspired Oxygen 30 Intake/Output Intake/Output: Intake & Output 03/25/25 03/26/25 03/27/25 03/28/25 23:59 23:59 23:59 23:59 Intake Total 2674.2 2004.0 1105.1 Output Total 600 1250 1200 Balance 2074.2 754.0 -94.9 Meds/Results Medications: Active Medications Generic Name Dose Route Start Last Admin Trade Name Freq PRN Reason Stop Dose Admin Acetaminophen 650 mg 03/26/25 20:27 03/28/25 14:17 Acetaminophen Elixir 325 Mg/10.15 Ml Udc FEED TUBE 650 mg Q6H PRN Administration Mild Pain (1-3) or Fever Albuterol/Ipratropium 3 ml 03/28/25 08:15 03/28/25 13:50 Ipratropium 0.5 Mg/Albuterol Sulfate 2.5 Mg Ampul.Neb 3 Ml INHALATION 3 ml Q6HRT SHANE Administration Enoxaparin Sodium 40 mg 03/27/25 09:00 03/28/25 10:20 Enoxaparin 40 Mg/0.4 Ml Syringe SUB-Q 40 mg DAILY SHANE Administration Fentanyl Citrate 50 mcg 03/27/25 13:57 03/28/25 14:16 Fentanyl Citrate Inj (*Crx) 100 Mcg/2 Ml Vial IV PUSH 50 mcg Q4H PRN Administration Sedation Midazolam HCl 100 mg in 100 mls @ 10 mls/hr 03/26/25 01:15 03/28/25 15:32 Versed 100 Mg/Ns 100 Ml IV CONT 10 mg/hr .Q10H SHANE 10 mls/hr Titration Protocol 10 MG/HR Propofol 100 mls @ 24.597 mls/hr 03/26/25 02:20 03/28/25 15:06 Diprivan IV CONT 45 mcg/kg/min .Q4H4M SHANE 24.6 mls/hr Administration Protocol 45 MCG/KG/MIN Cefepime HCl 2 gm in 50 mls @ 100 mls/hr 03/27/25 05:00 03/28/25 14:00 Maxipime 2 Gm/Ns 50 Ml IVPB 100 mls/hr Q8H SHANE Administration Metronidazole 500 mg in 100 mls @ 100 mls/hr 03/27/25 06:00 03/28/25 14:00 Flagyl 500 Mg/Iso Soln 100 Ml IVPB 100 mls/hr Q8H SHANE Administration Vancomycin HCl 1,500 mg in 500 mls @ 250 mls/hr 03/28/25 18:00 Vancomycin 1,500 Mg/Ns 500 Ml IVPB Q8H SHANE Pantoprazole Sodium 40 mg 03/27/25 09:00 03/28/25 10:20 Pantoprazole Sodium Iv 40 Mg Vial IV PUSH 40 mg QAM SHANE Administration Radiology Results: ITS Impressions Abdomen X-Ray 03/26/25 05:30 Impression: NG tube in satisfactory position. Head CT 03/27/25 10:57 Impression: No acute abnormality. No change from prior exam. 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 Overlying postoperative change of the frontal bones. Chest CTA 03/27/25 10:58 Impression: No evidence of pulmonary embolus, aortic dissection, or aortic aneurysm. Extensive bilateral lower lobe airspace consolidation is suspicious for bilateral pneumonia versus possibly atelectasis, left worse than right. Chest X-Ray 03/28/25 07:15 IMPRESSION: 1. Patchy airspace opacities in the bilateral lower lung zones consistent with pneumonia. Labs Labs: Laboratory Results - last 24 hr 03/28/25 03/28/25 03/28/25 03:44 04:30 16:53 WBC 11.9 H RBC 3.92 L Hgb 11.1 L Hct 34.7 L MCV 88.5 MCH 28.3 MCHC 32.0 RDW 12.9 Plt Count 180 MPV 10.6 H Immature Gran % (Auto) 2.3 H Neut % (Auto) 85.5 H Lymph % (Auto) 6.2 L Reynolds % (Auto) 4.7 Eos % (Auto) 1.0 Baso % (Auto) 0.3 Lymph # (Auto) 0.74 L Reynolds # (Auto) 0.6 Eos # (Auto) 0.1 Baso # (Auto) 0.0 Abs Immat Gran (auto) 0.27 H Absolute Neuts (auto) 10.2 H Absolute Nucleated RBC 0.000 Nucleated RBC % 0.0 Puncture Site Left radial ABG pH 7.420 ABG pCO2 37.4 ABG pO2 66.9 L ABG PO2/FiO2 Ratio 2.23 ABG HCO3 23.7 ABG O2 Saturation 93.7 L ABG O2 Content 15.4 L ABG Base Excess -0.5 A-a Gradient 103.1 Oxyhemoglobin 91.8 Carboxyhemoglobin 0.2 Methemoglobin 0.2 Reduced Hemoglobin 7.8 H Total Hemoglobin 11.9 L O2 Delivery Device Ventilator O2 Liters/Min Not Reportable Minute Volume Not Reportable Vent Rate 18 Vent Mode Cmv FiO2 30 Tidal Volume 450 PEEP 5 Peak Inspir Pressure Not Reportable Pressure Support Not Reportable Sodium 135 L Potassium 4.1 Chloride 103 Carbon Dioxide 28 Anion Gap 4 BUN 22 H Creatinine 1.05 Estim Creat Clear Calc 90 Estimated GFR > 60 Glucose 114 H Lactic Acid 1.0 Calcium 8.3 L Phosphorus 2.9 Magnesium 2.5 H Total Bilirubin 0.6 AST 21 ALT 21 Alkaline Phosphatase 65 Total Creatine Kinase 56 Total Protein 6.0 L Albumin 3.2 L Vancomycin Trough 9.0 L Quality VTE Prophylaxis VTE prophylaxis: pharmacologic ordered
[2025-03-29] VITALS (61 sets, daily range): BP systolic 97–155; BP diastolic 60–94; PULSE 3–88; RESP 19–30; TEMP 36.6–38.1; O2SAT 96–100
[2025-03-29] MEDS: PROPOFOL IV EMULSION 100 ML 24.6 MG IV CONT ×4 (00:33→11:01)
[2025-03-29] MEDS: fentaNYL CITRATE INJ (*CRX) 100 MCG/2 ML VIAL 50 MCG IV PUSH ×3 (00:51→21:47)
[2025-03-29] MEDS: VANCOMYCIN 1,500 MG/NS 500 ML 1,500 MG/500 ML BAG 250 MG IVPB ×2 (01:20→09:24)
[2025-03-29] MEDS: IPRATROPIUM 0.5 MG/ALBUTEROL SULFATE 2.5 MG AMPUL.NEB 3 ML INHALATION ×4 (02:12→20:20)
[2025-03-29 03:42] LABS: Basophils Percent Auto 0.2 % (0.2-1.2); Eosinophils Absolute Auto 0.3 K/mm3 (0-0.3); Eosinophils Percent Auto 3.3 % (0-4.4); Hematocrit 30.8 % (42.0-52.0); Hemoglobin 9.5 g/dL (14.0-18.0); Immature Granulocyte Absolute 0.25 K/mm3 (0.00-0.031); Immature Granulocyte Percent A 2.5 % (0-0.5); Lymphocytes Absolute Auto 0.57 K/mm3 (0.9-3.2); Lymphocytes Percent Auto 5.6 % (18.3-44.2); Mean Corpuscular HGB Conc 30.8 g/dl (32-36); Mean Corpuscular Volume 90.9 fl (80-100); Mean Platelet Volume 10.2 fl (7.4-10.4); Monocytes Absolute Auto 0.6 K/mm3 (0.1-0.6); Monocytes Percent Auto 5.7 % (2.6-8.5); Neutrophils Absolute Auto 8.4 K/mm3 (1.3-6.7); Neutrophils Percent Auto 82.7 % (45.5-73.1); Platelet Count Result 149 k/mm3 (150-375); Red Blood Count 3.39 M/mm3 (4.6-6.20); Red Cell Distribution Width 13.1 % (11.5-14.5); White Blood Count 10.2 K/mm3 (4.5-10.0)
[2025-03-29 03:51] LABS: Alanine Aminotransferase 18 U/L (6-50); Albumin Level 2.9 g/dL (3.5-5.1); Alkaline Phosphatase 71 U/L (38-126); Anion Gap 4 mmol/L (4-12); Aspartate Amino Transferase 19 U/L (17-59); Bilirubin,Total 0.4 mg/dL (0.2-1.3); Blood Urea Nitrogen 20 mg/dL (9-20); Calcium 8.2 mg/dL (8.4-10.2); Carbon Dioxide 28 mmol/L (22-30); Chloride 105 mmol/L (98-107); Creatine Kinase 54 U/L (55-170); Estimated CRCL calculation 98 ml/min; Estimated Glomerular Filt Rate > 60; Glucose 110 mg/dL (65-110); Magnesium 2.3 mg/dL (1.6-2.3); Phosphorus 2.7 mg/dL (2.5-4.5); Potassium 4.2 mmol/L (3.4-5.0); Sodium 137 mmol/L (137-145)
[2025-03-29] MEDS: MIDAZOLAM 100MG/NS 100ML(*CRX) 100 MG/100 ML BAG 10 MG IV CONT (04:00)
[2025-03-29 04:18] LABS: Platelet Estimate Slightly Decreased (Adequate)
[2025-03-29 04:19] LABS: Anisocytosis 1+; Microcytosis 1+ (NORMAL); Schistocytes None Seen
[2025-03-29 04:49] LABS: Alveolar/Arterial O2 Gradient 69.6 mmHg; Base Excess ABG 0.9 mEq/l (+/-2.0); Carboxyhemoglobin 0.3 % THb (0-2.0); Fractional Inspired Oxygen 30 %; HCO3 ABG 26.2 mEq/l (22.0-26.0); Methemoglobin ABG 0.1 %THb (0-1.5); Oxygen Content ABG 14.5 %vol (16.0-22.0); Oxygen Saturation ABG 96.9 % (95.0-100.0); Oxyhemoglobin 96.4 % THb (90.0-100.0); PCO2 ABG 44.4 mmHg (35.0-45.0); PO2 ABG 92.1 mmHg (80.0-100.0); PO2 FiO2 Ratio Arterial Blood 3.07 %; Reduced Hemoglobin 3.2 %THb (0-5.0); Total Hemoglobin 10.6 g/dL (12.0-18.0); pH ABG 7.388 (7.350-7.450)
[2025-03-29 04:51] LABS: Site Drawn RIGHT RADIAL
[2025-03-29 04:52] LABS: Arterial Blood Gas PEEP 5 cmH2O; Arterial Blood Gas Tidal Volume 450 ml; Arterial Blood Gas Vent Mode CMV; Arterial Blood Gas Ventilator rate 18 /MIN; Device VENTILATOR; Modified Allen's Test Pass
[2025-03-29] MEDS: metroNIDAZOLE 500 MG/ISO 100ML 500 MG/100 ML BAG 100 MG IVPB ×3 (05:17→21:15)
[2025-03-29] MEDS: CEFEPIME 2 GM/NS 50 ML 2 GM/50 ML BAG IVPB ×3 (05:17→20:29)
--- NOTE | 2025-03-29 08:35 | WPDINTPN ---
Progress Note: A&P Assessment and Plan (1) Overdose of sympathomimetic agent: Code(s): T44.901A - Poisoning by unspecified drugs primarily affecting the autonomic nervous system, accidental (unintentional), initial encounter <Chiquita Max - Last Filed: 03/29/25 08:40> Status: Acute <Chiquita Max - Last Filed: 03/29/25 08:40> Assessment and Plan: Patient presented after overdose on fentanyl/amphetamine -patient on sympathomimetic symptoms upon arrival -treated with Versed -03/26: was intubated due to being combative and agitated, according the notes required 8 staff members to hold him down -currently sedated with Versed and propofol infusion -off fluids -03/27: The patient's girlfriend stated that that he is a IV drug user <Chiquita Max - Last Filed: 03/29/25 08:40> Patient presented after overdose on fentanyl/amphetamine -patient on sympathomimetic symptoms upon arrival -treated with Versed -03/26: was intubated due to being combative and agitated, according the notes required 8 staff members to hold him down -currently sedated with Versed and propofol infusion. Have asked the bedside RN to start sedation vacation, once patient wakes up will place him on SBT and evaluate for extubation. Will start Precedex if required -off fluids -03/27: The patient's girlfriend stated that that he is a IV drug user <Luis Fernando Mars MD - Last Filed: 03/29/25 10:00> (2) On mechanically assisted ventilation: Code(s): Z99.11 - Dependence on respirator [ventilator] status <Chiquita Max - Last Filed: 03/29/25 08:40> Status: Acute <Chiquita Max - Last Filed: 03/29/25 08:40> Assessment and Plan: Patient was agitated, combative in the ER -intubated with etomidate and rocuronium -currently on CMV mode of ventilation, peep of 5, 30% FiO2 -chest x-ray and ABGs reviewed -on Versed and propofol infusion for sedation -Daily SBT and SAT 03/27: CTA chest No evidence of PE, aortic dissection item aneurysm. 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 of amphetamine use once he is extubated <Kristi Rhodes, - Last Filed: 03/29/25 08:40> (4) Acute kidney injury: Code(s): N17.9 - Acute kidney failure, unspecified <Kristi Rhodes, Student - Last Filed: 03/29/25 08:40> Status: Acute <Kristi Rhodes, - Last Filed: 03/29/25 08:40> Assessment and Plan: Likely related to sympathomimetic symptoms, hypovolemia -creatinine improved and WNL -continue to monitor urine output, renal function and electrolytes <Kristi Rhodes - Last Filed: 03/29/25 08:40> RESOLVED Likely related to sympathomimetic symptoms, hypovolemia -creatinine improved and WNL -continue to monitor urine output, renal function and electrolytes <Luis Fernando Mars MD - Last Filed: 03/29/25 10:00> (5) Sepsis: Code(s): A41.9 - Sepsis, unspecified organism <Kristi Rhodes, Student - Last Filed: 03/29/25 08:40> Status: Acute <Kristi Rhodes, Student - Last Filed: 03/29/25 08:40> Assessment and Plan: Fevers, thick sputum, ventilator dysynchrony Since he is a IV drug user blood cultures were obtained on 03/27: which have been negative so far 03/27: Sputum Cx negative Continue cefepime, vancomycin and Flagyl (03/27) -fever curve resolving 03/27: CTA chest Impression: No evidence of pulmonary embolus, aortic dissection, or aortic aneurysm. Extensive bilateral lower lobe airspace consolidation is suspicious for bilateral pneumonia versus possibly atelectasis, left worse than right. 03/27: CT brain No acute abnormality. No change from prior exam. 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 Overlying postoperative change of the frontal bones. <Chiquita Max - Last Filed: 03/29/25 08:40> Fevers, thick sputum, ventilator dysynchrony Since he is a IV drug user blood cultures were obtained on 03/27: which have been negative so far 03/27: Sputum Cx GROUP G STREP Continue cefepime, vancomycin and Flagyl (03/27) -fever curve resolving 03/27: CTA chest Impression: No evidence of pulmonary embolus, aortic dissection, or aortic aneurysm. Extensive bilateral lower lobe airspace consolidation is suspicious for bilateral pneumonia versus possibly atelectasis, left worse than right. 03/27: CT brain No acute abnormality. No change from prior exam. 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 Overlying postoperative change of the frontal bones. <Luis Fernando Mars MD - Last Filed: 03/29/25 10:00> Assessment and Plan: DVT prophylaxis: Lovenox Stress ulcer prophylaxis: Protonix Nutrition: contiue tube feeds Code Status: Full code Critical Care Time Spent: 33 minutes Discussed with patient's family in rounds and updated them with patient's condition and plan of care. I answered all questions. Due to a high probability of clinically significant, life threatening deterioration, the patient required my highest level of preparedness to intervene emergently and I personally spent this critical care time directly and personally managing the patient. This critical care time included obtaining a history; examining the patient; pulse oximetry; ordering and review of studies; arranging urgent treatment with development of a management plan; evaluation of patient's response to treatment; frequent reassessment; and discussions with other providers. It was exclusive of separately billable procedures and treating other patients and teaching time. Please see Assessment and Plan section and the rest of the note for further information on patient assessment and treatment This dictation may have been done utilizing a voice recognition system. Attempts have been made to correct errors. However, there may be uncorrected grammatical, spelling, and recognitions errors present. <Kristi Rhodes Student - Last Filed: 03/29/25 08:40> DVT prophylaxis: Lovenox Stress ulcer prophylaxis: Protonix Nutrition: contiue tube feeds Code Status: Full code Critical Care Time Spent: 32 minutes Discussed with patient's family in rounds and updated them with patient's condition and plan of care. I answered all questions. Due to a high probability of clinically significant, life threatening deterioration, the patient required my highest level of preparedness to intervene emergently and I personally spent this critical care time directly and personally managing the patient. This critical care time included obtaining a history; examining the patient; pulse oximetry; ordering and review of studies; arranging urgent treatment with development of a management plan; evaluation of patient's response to treatment; frequent reassessment; and discussions with other providers. It was exclusive of separately billable procedures and treating other patients and teaching time. Please see Assessment and Plan section and the rest of the note for further information on patient assessment and treatment This dictation may have been done utilizing a voice recognition system. Attempts have been made to correct errors. However, there may be uncorrected grammatical, spelling, and recognitions errors present. <Luis Fernando Mars MD - Last Filed: 03/29/25 10:00> Subjective Date/time seen: 03/29/25 08:35 <Kristi Rhodes Student - Last Filed: 03/29/25 08:40> Interval history: 03/26- Intubated 03/27- CTA Chest c/w pneumonia, cefepime, vancomycin, and metronidazole started 03/29- Pt seen and evaluated in the ICU this morning. He remains intubated on CMV mode of ventilation, peep of 5, 30% FiO2. Sedated with propofol and Versed infusion. Urine output has been adequate, hemodynamically stable. Patient does not open his eyes or follow simple commands. Afebrile. <Chiquita Max - Last Filed: 03/29/25 08:40> Review of Systems Review of Systems: ROS unobtainable: Yes unobtainable due to endotracheal tube and unobtainable due to mental status <Kristi Rhodes Student - Last Filed: 03/29/25 08:40> Exam Narrative: General: Well-built gentleman in no acute distress HEENT:? Pupils equal and sluggish, sclera is clear, ETT in place Neck:? Supple Respiratory:? Clear to auscultation bilaterally, no wheezing, adequate air entry Cardiac:? S1-S2 normal, regular rate and rhythm Abdomen:? Soft, nontender nondistended, hypoactive bowel sounds Extremities:? No edema, palpable pedal pulses Neuro:? Patient intubated, sedated with Propofol and Versed, does not follows simple commands, does not withdraw to pain Skin:? Warm and dry, no lesions noted Psych:? Unable to assess at this time <Kristi Rhodes, Student - Last Filed: 03/29/25 08:40> Objective Data Vital Signs Vital Signs: Vital Signs - 24 hr 03/28/25 09:40 03/28/25 09:40 03/28/25 10:00 Temperature 98.8 F Pulse Rate 82 82 78 Respiratory Rate 20 20 22 H Blood Pressure 93/61 L Pulse Oximetry 98 Oxygen Delivery Fraction of Inspired Oxygen 03/28/25 10:00 03/28/25 10:25 03/28/25 11:50 Temperature Pulse Rate 78 79 81 Respiratory Rate 21 H Blood Pressure Pulse Oximetry 99 Oxygen Delivery Mechanical Ventilation Fraction of Inspired Oxygen 30 03/28/25 11:50 03/28/25 11:50 03/28/25 12:00 Temperature Pulse Rate 81 81 Respiratory Rate 21 H 21 H Blood Pressure Pulse Oximetry Oxygen Delivery Fraction of Inspired Oxygen 30 03/28/25 12:00 03/28/25 12:00 03/28/25 12:00 Temperature 99.5 F Pulse Rate 81 78 82 Respiratory Rate 22 H 22 H Blood Pressure 98/63 L Pulse Oximetry 100 98 Oxygen Delivery Mechanical Ventilation Fraction of Inspired Oxygen 30 03/28/25 13:50 03/28/25 13:50 03/28/25 13:56 Temperature Pulse Rate 85 85 85 Respiratory Rate 23 H 21 H Blood Pressure Pulse Oximetry 100 Oxygen Delivery Mechanical Ventilation Fraction of Inspired Oxygen 30 03/28/25 14:00 03/28/25 14:00 03/28/25 14:00 Temperature 100.2 F H Pulse Rate 87 84 82 Respiratory Rate 22 H 20 21 H Blood Pressure 99/61 L Pulse Oximetry 99 Oxygen Delivery Fraction of Inspired Oxygen 03/28/25 15:06 03/28/25 15:06 03/28/25 15:32 Temperature Pulse Rate 87 87 86 Respiratory Rate 24 H 24 H 20 Blood Pressure Pulse Oximetry Oxygen Delivery Fraction of Inspired Oxygen 03/28/25 15:35 03/28/25 15:36 03/28/25 16:00 Temperature 100.3 F H Pulse Rate 78 87 Respiratory Rate 22 H 25 H Blood Pressure 105/64 Pulse Oximetry 98 96 Oxygen Delivery Mechanical Ventilation Fraction of Inspired Oxygen 30 30 03/28/25 16:00 03/28/25 16:25 03/28/25 17:25 Temperature Pulse Rate 87 87 87 Respiratory Rate 23 H Blood Pressure Pulse Oximetry 96 Oxygen Delivery Mechanical Ventilation Fraction of Inspired Oxygen 30 03/28/25 17:30 03/28/25 18:00 03/28/25 18:00 Temperature 100.7 F H Pulse Rate 86 87 87 Respiratory Rate 23 H 19 Blood Pressure 101/64 Pulse Oximetry 96 Oxygen Delivery Fraction of Inspired Oxygen 03/28/25 18:30 03/28/25 18:32 03/28/25 20:00 Temperature Pulse Rate 86 86 Respiratory Rate 22 H 23 H Blood Pressure Pulse Oximetry Oxygen Delivery Fraction of Inspired Oxygen 30 03/28/25 20:00 03/28/25 20:00 03/28/25 20:00 Temperature Pulse Rate 87 87 87 Respiratory Rate 23 H 23 H 21 H Blood Pressure Pulse Oximetry Oxygen Delivery Fraction of Inspired Oxygen 03/28/25 20:00 03/28/25 20:00 03/28/25 20:00 Temperature 100.6 F H Pulse Rate 87 87 87 Respiratory Rate 21 H 21 H Blood Pressure 108/67 Pulse Oximetry 97 97 Oxygen Delivery Mechanical Ventilation Fraction of Inspired Oxygen 30 03/28/25 20:05 03/28/25 20:10 03/28/25 20:16 Temperature 100.6 F H Pulse Rate 87 87 Respiratory Rate 25 H Blood Pressure Pulse Oximetry 97 Oxygen Delivery Mechanical Ventilation Fraction of Inspired Oxygen 30 03/28/25 20:20 03/28/25 21:16 03/28/25 22:00 Temperature 100.6 F H 100.4 F H Pulse Rate 88 84 Respiratory Rate 25 H 22 H Blood Pressure 99/64 L Pulse Oximetry 97 Oxygen Delivery Fraction of Inspired Oxygen 03/28/25 22:00 03/28/25 22:00 03/28/25 22:00 Temperature Pulse Rate 84 84 84 Respiratory Rate 22 H 22 H Blood Pressure Pulse Oximetry Oxygen Delivery Fraction of Inspired Oxygen 03/28/25 23:12 03/29/25 00:00 03/29/25 00:00 Temperature Pulse Rate 84 82 82 Respiratory Rate 24 H 24 H Blood Pressure Pulse Oximetry 97 Oxygen Delivery Mechanical Ventilation Fraction of Inspired Oxygen 30 03/29/25 00:00 03/29/25 00:00 03/29/25 00:00 Temperature 99.6 F Pulse Rate 82 84 81 Respiratory Rate 24 H 24 H Blood Pressure 100/67 Pulse Oximetry 97 97 Oxygen Delivery Mechanical Ventilation Fraction of Inspired Oxygen 30 03/29/25 00:00 03/29/25 00:33 03/29/25 02:00 Temperature Pulse Rate 82 74 Respiratory Rate 24 H 22 H Blood Pressure Pulse Oximetry Oxygen Delivery Fraction of Inspired Oxygen 30 03/29/25 02:00 03/29/25 02:00 03/29/25 02:00 Temperature 99.2 F Pulse Rate 74 74 74 Respiratory Rate 22 H 22 H Blood Pressure 97/63 L Pulse Oximetry 97 Oxygen Delivery Fraction of Inspired Oxygen 03/29/25 02:10 03/29/25 02:12 03/29/25 03:20 Temperature Pulse Rate 72 72 71 Respiratory Rate 22 H 24 H Blood Pressure Pulse Oximetry 97 Oxygen Delivery Mechanical Ventilation Fraction of Inspired Oxygen 30 03/29/25 03:20 03/29/25 04:00 03/29/25 04:00 Temperature Pulse Rate 71 68 68 Respiratory Rate 24 H 20 20 Blood Pressure Pulse Oximetry Oxygen Delivery Fraction of Inspired Oxygen 03/29/25 04:00 03/29/25 04:00 03/29/25 04:00 Temperature 98.1 F Pulse Rate 68 68 70 Respiratory Rate 20 24 H Blood Pressure 98/60 L Pulse Oximetry 97 Oxygen Delivery Fraction of Inspired Oxygen 03/29/25 04:00 03/29/25 04:00 03/29/25 04:53 Temperature Pulse Rate 70 66 Respiratory Rate 24 H Blood Pressure Pulse Oximetry 97 98 Oxygen Delivery Mechanical Ventilation Mechanical Ventilation Fraction of Inspired Oxygen 30 30 30 03/29/25 06:00 03/29/25 06:00 03/29/25 06:00 Temperature Pulse Rate 67 67 67 Respiratory Rate 20 20 Blood Pressure Pulse Oximetry Oxygen Delivery Fraction of Inspired Oxygen 03/29/25 06:00 03/29/25 06:52 03/29/25 06:52 Temperature 97.9 F Pulse Rate 67 70 70 Respiratory Rate 20 23 H 23 H Blood Pressure 102/65 Pulse Oximetry 99 Oxygen Delivery Fraction of Inspired Oxygen 03/29/25 07:45 03/29/25 08:26 Temperature 98.2 F Pulse Rate 70 71 Respiratory Rate 20 22 H Blood Pressure 102/68 Pulse Oximetry 98 Oxygen Delivery Fraction of Inspired Oxygen <Kristi Rhodes, Student - Last Filed: 03/29/25 08:40> Intake/Output Intake/Output: Intake & Output 03/26/25 03/27/25 03/28/25 03/29/25 23:59 23:59 23:59 23:59 Intake Total 2674.2 2004.0 2108.6 1272.6 Output Total 600 1250 1200 450 Balance 2074.2 754.0 908.6 822.6 <Kristi Rhodes, Student - Last Filed: 03/29/25 08:40> Meds/Results Medications: Active Medications Generic Name Dose Route Start Last Admin Trade Name Freq PRN Reason Stop Dose Admin Acetaminophen 650 mg 03/26/25 20:27 03/28/25 20:16 Acetaminophen Elixir 325 Mg/10.15 Ml Udc FEED TUBE 650 mg Q6H PRN Administration Mild Pain (1-3) or Fever Albuterol/Ipratropium 3 ml 03/28/25 08:15 03/29/25 08:26 Ipratropium 0.5 Mg/Albuterol Sulfate 2.5 Mg Ampul.Neb 3 Ml INHALATION 3 ml Q6HRT SHANE Administration Enoxaparin Sodium 40 mg 03/27/25 09:00 03/28/25 10:20 Enoxaparin 40 Mg/0.4 Ml Syringe SUB-Q 40 mg DAILY SHANE Administration Fentanyl Citrate 50 mcg 03/27/25 13:57 03/29/25 00:51 Fentanyl Citrate Inj (*Crx) 100 Mcg/2 Ml Vial IV PUSH 50 mcg Q4H PRN Administration Sedation Midazolam HCl 100 mg in 100 mls @ 10 mls/hr 03/26/25 01:15 03/29/25 06:00 Versed 100 Mg/Ns 100 Ml IV CONT 10 mg/hr .Q10H SHANE 10 mls/hr Titration Protocol 10 MG/HR Propofol 100 mls @ 24.597 mls/hr 03/26/25 02:20 03/29/25 06:52 Diprivan IV CONT 45 mcg/kg/min .Q4H4M SHANE 24.6 mls/hr Administration Protocol 45 MCG/KG/MIN Cefepime HCl 2 gm in 50 mls @ 100 mls/hr 03/27/25 05:00 03/29/25 06:00 Maxipime 2 Gm/Ns 50 Ml IVPB Infused Q8H SHANE Infusion Metronidazole 500 mg in 100 mls @ 100 mls/hr 03/27/25 06:00 03/29/25 06:20 Flagyl 500 Mg/Iso Soln 100 Ml IVPB Infused Q8H SHANE Infusion Vancomycin HCl 1,500 mg in 500 mls @ 250 mls/hr 03/28/25 18:00 03/29/25 03:29 Vancomycin 1,500 Mg/Ns 500 Ml IVPB Infused Q8H SHANE Infusion Pantoprazole Sodium 40 mg 03/27/25 09:00 03/28/25 10:20 Pantoprazole Sodium Iv 40 Mg Vial IV PUSH 40 mg QAM SHANE Administration <Kristi Rhodes, Student - Last Filed: 03/29/25 08:40> Radiology Results: ITS Impressions Abdomen X-Ray 03/26/25 05:30 Impression: NG tube in satisfactory position. Head CT 03/27/25 10:57 Impression: No acute abnormality. No change from prior exam. 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 Overlying postoperative change of the frontal bones. Chest CTA 03/27/25 10:58 Impression: No evidence of pulmonary embolus, aortic dissection, or aortic aneurysm. Extensive bilateral lower lobe airspace consolidation is suspicious for bilateral pneumonia versus possibly atelectasis, left worse than right. Chest X-Ray 03/29/25 07:30 IMPRESSION: Left basilar atelectasis versus pneumonia. <Kristi Rhodes, Student - Last Filed: 03/29/25 08:40> Labs Labs: Laboratory Results - last 24 hr 03/28/25 03/29/25 03/29/25 16:53 03:37 04:46 WBC 10.2 H RBC 3.39 L Hgb 9.5 L Hct 30.8 L MCV 90.9 MCH 28.0 MCHC 30.8 L RDW 13.1 Plt Count 149 L MPV 10.2 Immature Gran % (Auto) 2.5 H Neut % (Auto) 82.7 H Lymph % (Auto) 5.6 L Wilkinson % (Auto) 5.7 Eos % (Auto) 3.3 Baso % (Auto) 0.2 Lymph # (Auto) 0.57 L Wilkinson # (Auto) 0.6 Eos # (Auto) 0.3 Baso # (Auto) 0.0 Abs Immat Gran (auto) 0.25 H Absolute Neuts (auto) 8.4 H Absolute Nucleated RBC 0.000 Band Neutrophils % Not Reportable Nucleated RBC % 0.0 Platelet Estimate Slightly decreased Anisocytosis 1+ Microcytosis 1+ Schistocytes None seen Puncture Site Right radial ABG pH 7.388 ABG pCO2 44.4 ABG pO2 92.1 ABG PO2/FiO2 Ratio 3.07 ABG HCO3 26.2 H ABG O2 Saturation 96.9 ABG O2 Content 14.5 L ABG Base Excess 0.9 A-a Gradient 69.6 Oxyhemoglobin 96.4 Carboxyhemoglobin 0.3 Methemoglobin 0.1 Reduced Hemoglobin 3.2 Total Hemoglobin 10.6 L O2 Delivery Device Ventilator O2 Liters/Min Not Reportable Minute Volume Not Reportable Vent Rate 18 Vent Mode Cmv FiO2 30 Tidal Volume 450 PEEP 5 Peak Inspir Pressure Not Reportable Pressure Support Not Reportable Sodium 137 Potassium 4.2 Chloride 105 Carbon Dioxide 28 Anion Gap 4 BUN 20 Creatinine 0.96 Estim Creat Clear Calc 98 Estimated GFR > 60 Glucose 110 Calcium 8.2 L Phosphorus 2.7 Magnesium 2.3 Total Bilirubin 0.4 AST 19 ALT 18 Alkaline Phosphatase 71 Total Creatine Kinase 54 L Total Protein 6.0 L Albumin 2.9 L Vancomycin Trough 9.0 L <Kristi Rhodes Student - Last Filed: 03/29/25 08:40> Quality VTE Prophylaxis VTE prophylaxis: pharmacologic ordered <Kristi Rhodes Student - Last Filed: 03/29/25 08:40> Attestation Student Attestation H&P performed by Kristi Rhodes, OMS-IV <Kristi Rhodes Student - Last Filed: 03/29/25 08:40>
[2025-03-29] MEDS: ENOXAPARIN 40 MG/0.4 ML SYRINGE SUB-Q (08:36)
[2025-03-29] MEDS: PANTOPRAZOLE SODIUM IV 40 MG VIAL IV PUSH (08:36)
--- NOTE | 2025-03-29 10:37 | P.PNIM_ITS ---
Progress Note: A&P Assessment and Plan (1) Overdose of sympathomimetic agent: Code(s): T44.901A - Poisoning by unspecified drugs primarily affecting the autonomic nervous system, accidental (unintentional), initial encounter Status: Acute Assessment and Plan: Patient presented after overdose on fentanyl/amphetamine -patient on sympathomimetic symptoms upon arrival -treated with Versed -03/26: was intubated due to being combative and agitated, according the notes required 8 staff members to hold him down -currently sedated with Versed and propofol infusion. Have asked the bedside RN to start sedation vacation, once patient wakes up will place him on SBT and evaluate for extubation. Will start Precedex if required -off fluids -03/27: The patient's girlfriend stated that that he is a IV drug user (2) On mechanically assisted ventilation: Code(s): Z99.11 - Dependence on respirator [ventilator] status Status: Acute Assessment and Plan: Patient was agitated, combative in the ER -intubated with etomidate and rocuronium -currently on CMV mode of ventilation, peep of 5, 30% FiO2 -chest x-ray and ABGs reviewed -on Versed and propofol infusion for sedation -Daily SBT and SAT 03/27: CTA chest No evidence of PE, aortic dissection item aneurysm. 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 once he is extubated (4) Acute kidney injury: Code(s): N17.9 - Acute kidney failure, unspecified Status: Acute Assessment and Plan: RESOLVED Likely related to sympathomimetic symptoms, hypovolemia -creatinine improved and WNL -continue to monitor urine output, renal function and electrolytes (5) Sepsis: Code(s): A41.9 - Sepsis, unspecified organism Status: Acute Assessment and Plan: Fevers, thick sputum, ventilator dysynchrony Since he is a IV drug user blood cultures were obtained on 03/27: which have been negative so far 03/27: Sputum Cx GROUP G STREP Continue cefepime, vancomycin and Flagyl (03/27) -fever curve resolving 03/27: CTA chest Impression: No evidence of pulmonary embolus, aortic dissection, or aortic aneurysm. Extensive bilateral lower lobe airspace consolidation is suspicious for bilateral pneumonia versus possibly atelectasis, left worse than right. 03/27: CT brain No acute abnormality. No change from prior exam. 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 Overlying postoperative change of the frontal bones. Plan DVT prophylaxis: Lovenox Stress ulcer prophylaxis: Protonix Nutrition: continue tube feeds Code Status: Full code Subjective Date/time seen: 03/29/25 10:37 Interval history: Still intubated Review of Systems Review of Systems: Unable to do ROS as patient was intubated and sedated ROS unobtainable: Yes unobtainable due to endotracheal tube and unobtainable due to mental status Exam Narrative: General: intubated and sedated Eyes: EOMI, PERRLA ENNT External ears normal, Neck is supple, no masses, Respiratory systems: Clear to auscultation Cardiovascular S1, S2, normal rhythm, no murmur, rub, or gallop; no thrill or palpable murmurs on palpation. Gastrointestinal: soft, non-tender, and non-distended abdomen with no masses; BS present Skin: no rash, lesions, ulcerations, subcutaneous nodules or induration Musculoskeletal: no abnormality and no tenderness, normal ROM Neurologic: intubated and sedated Objective Data Vital Signs Vital Signs: Vital Signs - 24 hr 03/28/25 11:50 03/28/25 11:50 03/28/25 11:50 Temperature Pulse Rate 81 81 81 Respiratory Rate 21 H 21 H 21 H Blood Pressure Pulse Oximetry Oxygen Delivery Fraction of Inspired Oxygen 03/28/25 12:00 03/28/25 12:00 03/28/25 12:00 Temperature 99.5 F Pulse Rate 81 78 Respiratory Rate 22 H 22 H Blood Pressure 98/63 L Pulse Oximetry 100 98 Oxygen Delivery Mechanical Ventilation Fraction of Inspired Oxygen 30 30 03/28/25 12:00 03/28/25 13:50 03/28/25 13:50 Temperature Pulse Rate 82 85 85 Respiratory Rate 23 H Blood Pressure Pulse Oximetry 100 Oxygen Delivery Mechanical Ventilation Fraction of Inspired Oxygen 30 03/28/25 13:56 03/28/25 14:00 03/28/25 14:00 Temperature 100.2 F H Pulse Rate 85 87 84 Respiratory Rate 21 H 22 H 20 Blood Pressure 99/61 L Pulse Oximetry 99 Oxygen Delivery Fraction of Inspired Oxygen 03/28/25 14:00 03/28/25 15:06 03/28/25 15:06 Temperature Pulse Rate 82 87 87 Respiratory Rate 21 H 24 H 24 H Blood Pressure Pulse Oximetry Oxygen Delivery Fraction of Inspired Oxygen 03/28/25 15:32 03/28/25 15:35 03/28/25 15:36 Temperature Pulse Rate 86 78 Respiratory Rate 20 22 H Blood Pressure Pulse Oximetry 98 Oxygen Delivery Mechanical Ventilation Fraction of Inspired Oxygen 30 30 03/28/25 16:00 03/28/25 16:00 03/28/25 16:25 Temperature 100.3 F H Pulse Rate 87 87 87 Respiratory Rate 25 H Blood Pressure 105/64 Pulse Oximetry 96 96 Oxygen Delivery Mechanical Ventilation Fraction of Inspired Oxygen 30 03/28/25 17:25 03/28/25 17:30 03/28/25 18:00 Temperature 100.7 F H Pulse Rate 87 86 87 Respiratory Rate 23 H 23 H 19 Blood Pressure 101/64 Pulse Oximetry 96 Oxygen Delivery Fraction of Inspired Oxygen 03/28/25 18:00 03/28/25 18:30 03/28/25 18:32 Temperature Pulse Rate 87 86 86 Respiratory Rate 22 H 23 H Blood Pressure Pulse Oximetry Oxygen Delivery Fraction of Inspired Oxygen 03/28/25 20:00 03/28/25 20:00 03/28/25 20:00 Temperature Pulse Rate 87 87 Respiratory Rate 23 H 23 H Blood Pressure Pulse Oximetry Oxygen Delivery Fraction of Inspired Oxygen 30 03/28/25 20:00 03/28/25 20:00 03/28/25 20:00 Temperature 100.6 F H Pulse Rate 87 87 87 Respiratory Rate 21 H 21 H 21 H Blood Pressure 108/67 Pulse Oximetry 97 97 Oxygen Delivery Mechanical Ventilation Fraction of Inspired Oxygen 30 03/28/25 20:00 03/28/25 20:05 03/28/25 20:10 Temperature Pulse Rate 87 87 87 Respiratory Rate 25 H Blood Pressure Pulse Oximetry 97 Oxygen Delivery Mechanical Ventilation Fraction of Inspired Oxygen 30 03/28/25 20:16 03/28/25 20:20 03/28/25 21:16 Temperature 100.6 F H 100.6 F H Pulse Rate 88 Respiratory Rate 25 H Blood Pressure Pulse Oximetry Oxygen Delivery Fraction of Inspired Oxygen 03/28/25 22:00 03/28/25 22:00 03/28/25 22:00 Temperature 100.4 F H Pulse Rate 84 84 84 Respiratory Rate 22 H 22 H Blood Pressure 99/64 L Pulse Oximetry 97 Oxygen Delivery Fraction of Inspired Oxygen 03/28/25 22:00 03/28/25 23:12 03/29/25 00:00 Temperature Pulse Rate 84 84 82 Respiratory Rate 22 H 24 H Blood Pressure Pulse Oximetry 97 Oxygen Delivery Mechanical Ventilation Fraction of Inspired Oxygen 30 03/29/25 00:00 03/29/25 00:00 03/29/25 00:00 Temperature 99.6 F Pulse Rate 82 82 84 Respiratory Rate 24 H 24 H 24 H Blood Pressure 100/67 Pulse Oximetry 97 97 Oxygen Delivery Mechanical Ventilation Fraction of Inspired Oxygen 30 03/29/25 00:00 03/29/25 00:00 03/29/25 00:33 Temperature Pulse Rate 81 82 Respiratory Rate 24 H Blood Pressure Pulse Oximetry Oxygen Delivery Fraction of Inspired Oxygen 30 03/29/25 02:00 03/29/25 02:00 03/29/25 02:00 Temperature Pulse Rate 74 74 74 Respiratory Rate 22 H 22 H Blood Pressure Pulse Oximetry Oxygen Delivery Fraction of Inspired Oxygen 03/29/25 02:00 03/29/25 02:10 03/29/25 02:12 Temperature 99.2 F Pulse Rate 74 72 72 Respiratory Rate 22 H 22 H Blood Pressure 97/63 L Pulse Oximetry 97 97 Oxygen Delivery Mechanical Ventilation Fraction of Inspired Oxygen 30 03/29/25 03:20 03/29/25 03:20 03/29/25 04:00 Temperature Pulse Rate 71 71 68 Respiratory Rate 24 H 24 H 20 Blood Pressure Pulse Oximetry Oxygen Delivery Fraction of Inspired Oxygen 03/29/25 04:00 03/29/25 04:00 03/29/25 04:00 Temperature 98.1 F Pulse Rate 68 68 68 Respiratory Rate 20 20 24 H Blood Pressure 98/60 L Pulse Oximetry 97 Oxygen Delivery Fraction of Inspired Oxygen 03/29/25 04:00 03/29/25 04:00 03/29/25 04:00 Temperature Pulse Rate 70 70 Respiratory Rate 24 H Blood Pressure Pulse Oximetry 97 Oxygen Delivery Mechanical Ventilation Fraction of Inspired Oxygen 30 30 03/29/25 04:53 03/29/25 06:00 03/29/25 06:00 Temperature Pulse Rate 66 67 67 Respiratory Rate 20 20 Blood Pressure Pulse Oximetry 98 Oxygen Delivery Mechanical Ventilation Fraction of Inspired Oxygen 30 03/29/25 06:00 03/29/25 06:00 03/29/25 06:52 Temperature 97.9 F Pulse Rate 67 67 70 Respiratory Rate 20 23 H Blood Pressure 102/65 Pulse Oximetry 99 Oxygen Delivery Fraction of Inspired Oxygen 03/29/25 06:52 03/29/25 07:45 03/29/25 08:00 Temperature 98.2 F Pulse Rate 70 70 Respiratory Rate 23 H 20 Blood Pressure 102/68 Pulse Oximetry 98 Oxygen Delivery Fraction of Inspired Oxygen 30 03/29/25 08:00 03/29/25 08:00 03/29/25 08:26 Temperature Pulse Rate 73 71 Respiratory Rate 22 H 22 H Blood Pressure Pulse Oximetry 98 Oxygen Delivery Mechanical Ventilation Fraction of Inspired Oxygen 30 03/29/25 08:32 03/29/25 08:43 03/29/25 08:43 Temperature Pulse Rate 71 74 74 Respiratory Rate 21 H 22 H Blood Pressure Pulse Oximetry 98 Oxygen Delivery Mechanical Ventilation Fraction of Inspired Oxygen 30 03/29/25 09:23 03/29/25 10:00 03/29/25 10:00 Temperature 98.3 F Pulse Rate 73 70 70 Respiratory Rate 19 21 H 21 H Blood Pressure 107/71 Pulse Oximetry 100 Oxygen Delivery Fraction of Inspired Oxygen 03/29/25 10:04 Temperature Pulse Rate 70 Respiratory Rate 21 H Blood Pressure Pulse Oximetry Oxygen Delivery Fraction of Inspired Oxygen Intake/Output Intake/Output: Intake & Output 03/26/25 03/27/25 03/28/25 03/29/25 23:59 23:59 23:59 23:59 Intake Total 2674.2 2004.0 2108.6 1387.7 Output Total 600 1250 1200 450 Balance 2074.2 754.0 908.6 937.7 Meds/Results Medications: Active Medications Generic Name Dose Route Start Last Admin Trade Name Freq PRN Reason Stop Dose Admin Acetaminophen 650 mg 03/26/25 20:27 03/28/25 20:16 Acetaminophen Elixir 325 Mg/10.15 Ml Udc FEED TUBE 650 mg Q6H PRN Administration Mild Pain (1-3) or Fever Albuterol/Ipratropium 3 ml 03/28/25 08:15 03/29/25 08:26 Ipratropium 0.5 Mg/Albuterol Sulfate 2.5 Mg Ampul.Neb 3 Ml INHALATION 3 ml Q6HRT SHANE Administration Enoxaparin Sodium 40 mg 03/27/25 09:00 03/29/25 08:36 Enoxaparin 40 Mg/0.4 Ml Syringe SUB-Q 40 mg DAILY SHANE Administration Fentanyl Citrate 50 mcg 03/27/25 13:57 03/29/25 00:51 Fentanyl Citrate Inj (*Crx) 100 Mcg/2 Ml Vial IV PUSH 50 mcg Q4H PRN Administration Sedation Midazolam HCl 100 mg in 100 mls @ 5 mls/hr 03/26/25 01:15 03/29/25 10:04 Versed 100 Mg/Ns 100 Ml IV CONT 5 mg/hr .Q20H SHANE 5 mls/hr Titration Protocol 5 MG/HR Propofol 100 mls @ 24.597 mls/hr 03/26/25 02:20 03/29/25 10:00 Diprivan IV CONT 45 mcg/kg/min .Q4H4M SHANE 24.6 mls/hr Titration Protocol 45 MCG/KG/MIN Cefepime HCl 2 gm in 50 mls @ 100 mls/hr 03/27/25 05:00 03/29/25 06:00 Maxipime 2 Gm/Ns 50 Ml IVPB Infused Q8H SHANE Infusion Metronidazole 500 mg in 100 mls @ 100 mls/hr 03/27/25 06:00 03/29/25 06:20 Flagyl 500 Mg/Iso Soln 100 Ml IVPB Infused Q8H SHANE Infusion Vancomycin HCl 1,500 mg in 500 mls @ 250 mls/hr 03/28/25 18:00 03/29/25 09:24 Vancomycin 1,500 Mg/Ns 500 Ml IVPB 250 mls/hr Q8H SHANE Administration Pantoprazole Sodium 40 mg 03/27/25 09:00 03/29/25 08:36 Pantoprazole Sodium Iv 40 Mg Vial IV PUSH 40 mg QAM SHANE Administration Radiology Results: ITS Impressions Abdomen X-Ray 03/26/25 05:30 Impression: NG tube in satisfactory position. Head CT 03/27/25 10:57 Impression: No acute abnormality. No change from prior exam. 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 Overlying postoperative change of the frontal bones. Chest CTA 03/27/25 10:58 Impression: No evidence of pulmonary embolus, aortic dissection, or aortic aneurysm. Extensive bilateral lower lobe airspace consolidation is suspicious for bilateral pneumonia versus possibly atelectasis, left worse than right. Chest X-Ray 03/29/25 07:30 IMPRESSION: Left basilar atelectasis versus pneumonia. Labs Labs: Laboratory Results - last 24 hr 03/28/25 03/29/25 03/29/25 16:53 03:37 04:46 WBC 10.2 H RBC 3.39 L Hgb 9.5 L Hct 30.8 L MCV 90.9 MCH 28.0 MCHC 30.8 L RDW 13.1 Plt Count 149 L MPV 10.2 Immature Gran % (Auto) 2.5 H Neut % (Auto) 82.7 H Lymph % (Auto) 5.6 L [place] % (Auto) 5.7 Eos % (Auto) 3.3 Baso % (Auto) 0.2 Lymph # (Auto) 0.57 L [place] # (Auto) 0.6 Eos # (Auto) 0.3 Baso # (Auto) 0.0 Abs Immat Gran (auto) 0.25 H Absolute Neuts (auto) 8.4 H Absolute Nucleated RBC 0.000 Band Neutrophils % Not Reportable Nucleated RBC % 0.0 Platelet Estimate Slightly decreased Anisocytosis 1+ Microcytosis 1+ Schistocytes None seen Puncture Site Right radial ABG pH 7.388 ABG pCO2 44.4 ABG pO2 92.1 ABG PO2/FiO2 Ratio 3.07 ABG HCO3 26.2 H ABG O2 Saturation 96.9 ABG O2 Content 14.5 L ABG Base Excess 0.9 A-a Gradient 69.6 Oxyhemoglobin 96.4 Carboxyhemoglobin 0.3 Methemoglobin 0.1 Reduced Hemoglobin 3.2 Total Hemoglobin 10.6 L O2 Delivery Device Ventilator O2 Liters/Min Not Reportable Minute Volume Not Reportable Vent Rate 18 Vent Mode Cmv FiO2 30 Tidal Volume 450 PEEP 5 Peak Inspir Pressure Not Reportable Pressure Support Not Reportable Sodium 137 Potassium 4.2 Chloride 105 Carbon Dioxide 28 Anion Gap 4 BUN 20 Creatinine 0.96 Estim Creat Clear Calc 98 Estimated GFR > 60 Glucose 110 Calcium 8.2 L Phosphorus 2.7 Magnesium 2.3 Total Bilirubin 0.4 AST 19 ALT 18 Alkaline Phosphatase 71 Total Creatine Kinase 54 L Total Protein 6.0 L Albumin 2.9 L Vancomycin Trough 9.0 L Quality VTE Prophylaxis VTE prophylaxis: pharmacologic ordered
[2025-03-29] MEDS: dexmedeTOMIDine 400 MCG/100 ML 400 MCG/100 ML BAG IV CONT (11:34)
[2025-03-29 17:34] LABS: Vancomycin Trough 13.2 ug/mL (10.0-20.0)
[2025-03-29] MEDS: dexmedeTOMIDine 400 MCG/100 ML 400 MCG/100 ML BAG 20.43 MCG IV CONT (17:43)
[2025-03-29] MEDS: VANCOMYCIN 1,750 MG/NS 500 ML 1,750 MG/500 ML BAG 250 MG IVPB (18:23)
[2025-03-29] MEDS: PROPOFOL IV EMULSION 100 ML 10.9 MG IV CONT (19:50)
[2025-03-29] MEDS: ACETAMINOPHEN ELIXIR 325 MG/10.15 ML UDC 650 MG FEED TUBE (20:02)
[2025-03-29] MEDS: MINERAL OIL/WHITE PETROLATUM OINTMENT 1 APPLIC EACH EYE (21:15)
[2025-03-29] MEDS: dexmedeTOMIDine 400 MCG/100 ML 400 MCG/100 ML BAG 34.05 MCG IV CONT (21:21)
[2025-03-30] VITALS (64 sets, daily range): BP systolic 112–142; BP diastolic 67–88; PULSE 59–88; RESP 18–32; TEMP 36.8–37.9; O2SAT 94–100
[2025-03-30] MEDS: IPRATROPIUM 0.5 MG/ALBUTEROL SULFATE 2.5 MG AMPUL.NEB 3 ML INHALATION ×4 (01:44→20:42)
[2025-03-30] MEDS: dexmedeTOMIDine 400 MCG/100 ML 400 MCG/100 ML BAG 34.05 MCG IV CONT ×6 (03:09→14:37)
[2025-03-30] MEDS: VANCOMYCIN 1,750 MG/NS 500 ML 1,750 MG/500 ML BAG 250 MG IVPB ×2 (03:09→09:50)
[2025-03-30] MEDS: fentaNYL CITRATE INJ (*CRX) 100 MCG/2 ML VIAL 50 MCG IV PUSH ×3 (03:12→13:28)
[2025-03-30 03:53] LABS: Basophils Percent Auto 0.2 % (0.2-1.2); Eosinophils Absolute Auto 0.6 K/mm3 (0-0.3); Eosinophils Percent Auto 6.2 % (0-4.4); Hematocrit 33.8 % (42.0-52.0); Hemoglobin 10.7 g/dL (14.0-18.0); Immature Granulocyte Absolute 0.07 K/mm3 (0.00-0.031); Immature Granulocyte Percent A 0.8 % (0-0.5); Lymphocytes Absolute Auto 0.66 K/mm3 (0.9-3.2); Lymphocytes Percent Auto 7.4 % (18.3-44.2); Mean Corpuscular HGB Conc 31.7 g/dl (32-36); Mean Corpuscular Hemoglobin 28.5 pg (26-34); Mean Corpuscular Volume 89.9 fl (80-100); Mean Platelet Volume 10.2 fl (7.4-10.4); Monocytes Absolute Auto 0.6 K/mm3 (0.1-0.6); Monocytes Percent Auto 6.5 % (2.6-8.5); Neutrophils Percent Auto 78.9 % (45.5-73.1); Platelet Count Result 196 k/mm3 (150-375); Red Blood Count 3.76 M/mm3 (4.6-6.20); Red Cell Distribution Width 12.8 % (11.5-14.5); White Blood Count 8.9 K/mm3 (4.5-10.0)
[2025-03-30 04:07] LABS: Alanine Aminotransferase 22 U/L (6-50); Albumin Level 3.2 g/dL (3.5-5.1); Alkaline Phosphatase 94 U/L (38-126); Anion Gap 5 mmol/L (4-12); Aspartate Amino Transferase 24 U/L (17-59); Bilirubin,Total 0.4 mg/dL (0.2-1.3); Blood Urea Nitrogen 16 mg/dL (9-20); Calcium 8.7 mg/dL (8.4-10.2); Carbon Dioxide 29 mmol/L (22-30); Chloride 107 mmol/L (98-107); Estimated CRCL calculation 117 ml/min; Estimated Glomerular Filt Rate > 60; Glucose 120 mg/dL (65-110); Magnesium 2.1 mg/dL (1.6-2.3); Phosphorus 2.5 mg/dL (2.5-4.5); Potassium 4.1 mmol/L (3.4-5.0); Sodium 141 mmol/L (137-145)
[2025-03-30] MEDS: PROPOFOL IV EMULSION 100 ML 21.79 MG IV CONT ×2 (04:37)
[2025-03-30] MEDS: CEFEPIME 2 GM/NS 50 ML 2 GM/50 ML BAG IVPB ×3 (04:38→20:39)
[2025-03-30 04:50] LABS: Alveolar/Arterial O2 Gradient 66.3 mmHg; Base Excess ABG 0.8 mEq/l (+/-2.0); Carboxyhemoglobin 0.3 % THb (0-2.0); Fractional Inspired Oxygen 30 %; HCO3 ABG 25.8 mEq/l (22.0-26.0); Methemoglobin ABG 0.2 %THb (0-1.5); Oxygen Content ABG 16.1 %vol (16.0-22.0); Oxygen Saturation ABG 97.4 % (95.0-100.0); PCO2 ABG 42.9 mmHg (35.0-45.0); PO2 ABG 97.2 mmHg (80.0-100.0); PO2 FiO2 Ratio Arterial Blood 3.24 %; Reduced Hemoglobin 2.5 %THb (0-5.0); Total Hemoglobin 11.7 g/dL (12.0-18.0); pH ABG 7.397 (7.350-7.450)
[2025-03-30 04:51] LABS: Arterial Blood Gas PEEP 5 cmH2O; Arterial Blood Gas Tidal Volume 450 ml; Arterial Blood Gas Vent Mode CMV; Arterial Blood Gas Ventilator rate 18 /MIN; Device VENTILATOR; Modified Allen's Test Pass; Site Drawn RIGHT RADIAL
[2025-03-30] MEDS: metroNIDAZOLE 500 MG/ISO 100ML 500 MG/100 ML BAG 100 MG IVPB (05:41)
--- NOTE | 2025-03-30 07:55 | WPDINTPN ---
Progress Note: A&P Assessment and Plan (1) Overdose of sympathomimetic agent: Code(s): T44.901A - Poisoning by unspecified drugs primarily affecting the autonomic nervous system, accidental (unintentional), initial encounter <Chiquita Max - Last Filed: 03/30/25 08:09> Status: Acute <Kristi AlirezaSabas Chiquita Rhodes - Last Filed: 03/30/25 08:09> Assessment and Plan: Patient presented after overdose on fentanyl/amphetamine -patient on sympathomimetic symptoms upon arrival -treated with Versed -03/26: was intubated due to being combative and agitated, according the notes required 8 staff members to hold him down -currently sedated with Versed and propofol infusion. Have asked the bedside RN to start sedation vacation, once patient wakes up will place him on SBT and evaluate for extubation. Will start Precedex if required -off fluids -03/27: The patient's girlfriend stated that that he is a IV drug user <Chiquita Max - Last Filed: 03/30/25 08:09> (2) On mechanically assisted ventilation: Code(s): Z99.11 - Dependence on respirator [ventilator] status <Chiquita Max - Last Filed: 03/30/25 08:09> Status: Acute <Chiquita Max - Last Filed: 03/30/25 08:09> Assessment and Plan: Patient was agitated, combative in the ER -intubated with etomidate and rocuronium -currently on CMV mode of ventilation, peep of 5, 30% FiO2 -chest x-ray and ABGs reviewed -on propofol infusion for sedation -Daily SBT and SAT 03/27: CTA chest No evidence of PE, aortic dissection item aneurysm. Extensive bilateral lower lobe airspace consolidation, suspicious for bilateral pneumonia versus atelectasis, left worse than right -currently on Cefepime, Vancomycin, and Metronidazole for suspected aspiration pneumonia (started 03/27) 03/30: Attempted breathing trial and weaning propofol, but pt became tachypneic and had thick secretions so propofol restarted. - Mucomyst ordered for thick secretions <Chiquita Max - Last Filed: 03/30/25 08:09> Patient was agitated, combative in the ER -intubated with etomidate and rocuronium -currently on CMV mode of ventilation, peep of 5, 30% FiO2 -chest x-ray and ABGs reviewed -on propofol infusion for sedation -Daily SBT and SAT 03/27: CTA chest No evidence of PE, aortic dissection item aneurysm. Extensive bilateral lower lobe airspace consolidation, suspicious for bilateral pneumonia versus atelectasis, left worse than right -currently on Cefepime, Vancomycin, and Metronidazole for suspected aspiration pneumonia (started 03/27) 03/30: Attempted breathing trial and weaning propofol, but pt became tachypneic with abdominal breathing and had thick secretions so propofol restarted, and patient placed back on CMV mode of ventilation -will place patient in SBT again in a.m. 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 once he is extubated <Chiquita Max - Last Filed: 03/30/25 08:09> (4) Acute kidney injury: Code(s): N17.9 - Acute kidney failure, unspecified <Chiquita Max - Last Filed: 03/30/25 08:09> Status: Acute <Chiquita Max - Last Filed: 03/30/25 08:09> Assessment and Plan: RESOLVED Likely related to sympathomimetic symptoms, hypovolemia -creatinine improved and WNL -continue to monitor urine output, renal function and electrolytes <Chiquita Max - Last Filed: 03/30/25 08:09> (5) Sepsis: Code(s): A41.9 - Sepsis, unspecified organism <Chiquita Max - Last Filed: 03/30/25 08:09> Status: Acute <Chiquita Max - Last Filed: 03/30/25 08:09> Assessment and Plan: Fevers, thick sputum, ventilator dysynchrony Since he is a IV drug user blood cultures were obtained on 03/27: which have been negative so far 03/27: Sputum Cx GROUP G STREP Continue cefepime, vancomycin and Flagyl (03/27) -fever curve resolving 03/27: CTA chest Impression: No evidence of pulmonary embolus, aortic dissection, or aortic aneurysm. Extensive bilateral lower lobe airspace consolidation is suspicious for bilateral pneumonia versus possibly atelectasis, left worse than right. 03/27: CT brain No acute abnormality. No change from prior exam. 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 Overlying postoperative change of the frontal bones. <Chiquita Max - Last Filed: 03/30/25 08:09> Fevers, thick sputum, ventilator dysynchrony Since he is a IV drug user blood cultures were obtained on 03/27: which have been negative so far 03/27: Sputum Cx GROUP G STREP Patient on cefepime, vancomycin and Flagyl (03/27) -given these growing group G strep in his sputum, will continue cefepime and discontinue vancomycin and Flagyl -fever curve resolving 03/27: CTA chest Impression: No evidence of pulmonary embolus, aortic dissection, or aortic aneurysm. Extensive bilateral lower lobe airspace consolidation is suspicious for bilateral pneumonia versus possibly atelectasis, left worse than right. 03/27: CT brain No acute abnormality. No change from prior exam. 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 Overlying postoperative change of the frontal bones. <Luis Fernando Mars MD - Last Filed: 03/30/25 11:05> Assessment and Plan: DVT prophylaxis: Lovenox Stress ulcer prophylaxis: Protonix Nutrition: contiue tube feeds Code Status: Full code Critical Care Time Spent: 32 minutes Discussed with patient's family in rounds and updated them with patient's condition and plan of care. I answered all questions. Due to a high probability of clinically significant, life threatening deterioration, the patient required my highest level of preparedness to intervene emergently and I personally spent this critical care time directly and personally managing the patient. This critical care time included obtaining a history; examining the patient; pulse oximetry; ordering and review of studies; arranging urgent treatment with development of a management plan; evaluation of patient's response to treatment; frequent reassessment; and discussions with other providers. It was exclusive of separately billable procedures and treating other patients and teaching time. Please see Assessment and Plan section and the rest of the note for further information on patient assessment and treatment This dictation may have been done utilizing a voice recognition system. Attempts have been made to correct errors. However, there may be uncorrected grammatical, spelling, and recognitions errors present. <Kristi Rhodes, Student - Last Filed: 03/30/25 08:09> DVT prophylaxis: Lovenox Stress ulcer prophylaxis: Protonix Nutrition: contiue tube feeds Code Status: Full code Critical Care Time Spent: 32 minutes Discussed with patient's family at bedside and updated them with patient's condition and plan of care. I answered all questions. Due to a high probability of clinically significant, life threatening deterioration, the patient required my highest level of preparedness to intervene emergently and I personally spent this critical care time directly and personally managing the patient. This critical care time included obtaining a history; examining the patient; pulse oximetry; ordering and review of studies; arranging urgent treatment with development of a management plan; evaluation of patient's response to treatment; frequent reassessment; and discussions with other providers. It was exclusive of separately billable procedures and treating other patients and teaching time. Please see Assessment and Plan section and the rest of the note for further information on patient assessment and treatment This dictation may have been done utilizing a voice recognition system. Attempts have been made to correct errors. However, there may be uncorrected grammatical, spelling, and recognitions errors present. <Luis Fernando Mars MD - Last Filed: 03/30/25 11:05> Subjective Date/time seen: 03/30/25 07:55 <Kristi Rhodes Student - Last Filed: 03/30/25 08:09> Interval history: 03/26- Intubated 03/27- CTA Chest c/w pneumonia, cefepime, vancomycin, and metronidazole started 03/30- Sputum culture positive for Group G Strep (susceptible to Penicillin and other beta-lactams) 03/30- Pt seen and evaluated in the ICU this morning. He remains intubated on CMV mode of ventilation, peep of 5, 30% FiO2. Sedated with propofol infusion. Urine output has been adequate, hemodynamically stable. Patient opens his eyes and follow simple commands. Febrile overnight with max temp of 100.6F. -Attempted breathing trial and weaning of propofol, but pt became tachypneic w/ thick secretions so propofol and CMV restarted. <Chiquita Max - Last Filed: 03/30/25 08:09> 03/26- Intubated 03/27- CTA Chest c/w pneumonia, cefepime, vancomycin, and metronidazole started 03/30- Sputum culture positive for Group G Strep (susceptible to Penicillin and other beta-lactams) 03/30- Pt seen and evaluated in the ICU this morning. He remains intubated on CMV mode of ventilation, peep of 5, 30% FiO2. Sedated with propofol and Precedex infusion. Urine output has been adequate, hemodynamically stable. Patient opens his eyes and follow simple commands. Febrile overnight with max temp of 100.6F. -Attempted breathing trial and weaning of propofol, but pt became tachypneic w/ thick secretions so propofol and CMV restarted. <Luis Fernando Mars MD - Last Filed: 03/30/25 11:05> Review of Systems Review of Systems: ROS unobtainable: Yes unobtainable due to endotracheal tube and unobtainable due to mental status <Chiquita Max - Last Filed: 03/30/25 08:09> Exam Narrative: General: Well-built gentleman in no acute distress HEENT:? Pupils equal and reactive, sclera is clear, ETT in place Neck:? Supple Respiratory:? Clear to auscultation bilaterally, no wheezing, adequate air entry Cardiac:? S1-S2 normal, regular rate and rhythm Abdomen:? Soft, nontender nondistended, hypoactive bowel sounds Extremities:? No edema, palpable pedal pulses Neuro:? Patient intubated, sedated with Propofol and Versed, follows simple commands, withdraws to pain Skin:? Warm and dry, no lesions noted Psych:? Unable to assess at this time <Chiquita Max - Last Filed: 03/30/25 08:09> Objective Data Vital Signs Vital Signs: Vital Signs - 24 hr 03/29/25 08:00 03/29/25 08:00 03/29/25 08:00 Temperature Pulse Rate 73 Respiratory Rate 22 H Blood Pressure Pulse Oximetry 98 Oxygen Delivery Mechanical Ventilation Fraction of Inspired Oxygen 30 30 03/29/25 08:00 03/29/25 08:26 03/29/25 08:32 Temperature Pulse Rate 70 71 71 Respiratory Rate 22 H Blood Pressure Pulse Oximetry 98 Oxygen Delivery Mechanical Ventilation Fraction of Inspired Oxygen 30 03/29/25 08:43 03/29/25 08:43 03/29/25 09:23 Temperature Pulse Rate 74 74 73 Respiratory Rate 21 H 22 H 19 Blood Pressure Pulse Oximetry Oxygen Delivery Fraction of Inspired Oxygen 03/29/25 10:00 03/29/25 10:00 03/29/25 10:00 Temperature 98.3 F Pulse Rate 70 70 70 Respiratory Rate 21 H 21 H Blood Pressure 107/71 Pulse Oximetry 100 Oxygen Delivery Fraction of Inspired Oxygen 03/29/25 10:04 03/29/25 10:57 03/29/25 11:00 Temperature Pulse Rate 70 68 68 Respiratory Rate 21 H 23 H Blood Pressure Pulse Oximetry 100 Oxygen Delivery Mechanical Ventilation Fraction of Inspired Oxygen 30 03/29/25 11:01 03/29/25 11:08 03/29/25 11:34 Temperature Pulse Rate 69 69 72 Respiratory Rate 23 H 22 H 25 H Blood Pressure Pulse Oximetry Oxygen Delivery Fraction of Inspired Oxygen 03/29/25 11:43 03/29/25 12:00 03/29/25 12:00 Temperature Pulse Rate 74 75 Respiratory Rate 20 23 H Blood Pressure Pulse Oximetry 98 Oxygen Delivery Mechanical Ventilation Fraction of Inspired Oxygen 30 03/29/25 12:00 03/29/25 12:00 03/29/25 12:00 Temperature 98.6 F Pulse Rate 72 73 Respiratory Rate 20 Blood Pressure 107/70 Pulse Oximetry 98 Oxygen Delivery Fraction of Inspired Oxygen 30 03/29/25 12:04 03/29/25 12:05 03/29/25 12:30 Temperature Pulse Rate 75 72 73 Respiratory Rate 26 H 23 H 25 H Blood Pressure Pulse Oximetry Oxygen Delivery Fraction of Inspired Oxygen 03/29/25 12:34 03/29/25 12:40 03/29/25 12:50 Temperature Pulse Rate 73 72 72 Respiratory Rate 23 H 23 H 23 H Blood Pressure Pulse Oximetry Oxygen Delivery Fraction of Inspired Oxygen 03/29/25 13:00 03/29/25 13:10 03/29/25 13:20 Temperature Pulse Rate 72 72 72 Respiratory Rate 23 H 24 H 25 H Blood Pressure Pulse Oximetry Oxygen Delivery Fraction of Inspired Oxygen 03/29/25 13:51 03/29/25 13:59 03/29/25 14:00 Temperature Pulse Rate 76 76 75 Respiratory Rate 24 H 22 H Blood Pressure Pulse Oximetry 98 Oxygen Delivery Mechanical Ventilation Fraction of Inspired Oxygen 30 03/29/25 14:00 03/29/25 14:00 03/29/25 14:00 Temperature 99 F Pulse Rate 75 76 73 Respiratory Rate 22 H 25 H Blood Pressure 131/79 Pulse Oximetry 97 Oxygen Delivery Fraction of Inspired Oxygen 03/29/25 14:02 03/29/25 14:30 03/29/25 15:00 Temperature Pulse Rate 77 73 75 Respiratory Rate 24 H 21 H 22 H Blood Pressure Pulse Oximetry Oxygen Delivery Fraction of Inspired Oxygen 03/29/25 16:00 03/29/25 16:00 03/29/25 16:00 Temperature 98.2 F Pulse Rate 68 73 Respiratory Rate 20 Blood Pressure 129/77 Pulse Oximetry 99 99 Oxygen Delivery Mechanical Ventilation Fraction of Inspired Oxygen 30 03/29/25 16:00 03/29/25 16:00 03/29/25 16:00 Temperature Pulse Rate 74 75 Respiratory Rate 25 H 25 H Blood Pressure Pulse Oximetry Oxygen Delivery Fraction of Inspired Oxygen 30 03/29/25 17:12 03/29/25 17:27 03/29/25 17:38 Temperature Pulse Rate 75 79 74 Respiratory Rate 30 H 22 H Blood Pressure Pulse Oximetry 97 Oxygen Delivery Mechanical Ventilation Fraction of Inspired Oxygen 30 03/29/25 17:43 03/29/25 17:43 03/29/25 18:00 Temperature Pulse Rate 76 76 77 Respiratory Rate 25 H 25 H Blood Pressure Pulse Oximetry Oxygen Delivery Fraction of Inspired Oxygen 03/29/25 18:00 03/29/25 18:22 03/29/25 19:45 Temperature 99.9 F H Pulse Rate 77 78 83 Respiratory Rate 25 H 26 H 26 H Blood Pressure 141/76 H Pulse Oximetry 96 Oxygen Delivery Fraction of Inspired Oxygen 03/29/25 19:45 03/29/25 19:50 03/29/25 20:00 Temperature 100.6 F H 100.5 F H Pulse Rate 86 83 82 Respiratory Rate 27 H 27 H 21 H Blood Pressure 155/94 H 147/94 H Pulse Oximetry 97 97 Oxygen Delivery Mechanical Ventilation Fraction of Inspired Oxygen 03/29/25 20:00 03/29/25 20:00 03/29/25 20:00 Temperature Pulse Rate 82 3 L Respiratory Rate 26 H 26 H Blood Pressure Pulse Oximetry 97 Oxygen Delivery Mechanical Ventilation Fraction of Inspired Oxygen 30 30 03/29/25 20:00 03/29/25 20:00 03/29/25 20:02 Temperature 100.6 F H Pulse Rate 84 88 Respiratory Rate 26 H Blood Pressure Pulse Oximetry Oxygen Delivery Fraction of Inspired Oxygen 03/29/25 20:10 03/29/25 20:21 03/29/25 20:24 Temperature Pulse Rate 83 73 73 Respiratory Rate 25 H 20 Blood Pressure Pulse Oximetry 98 Oxygen Delivery Mechanical Ventilation Fraction of Inspired Oxygen 30 03/29/25 20:30 03/29/25 20:30 03/29/25 20:37 Temperature Pulse Rate 73 73 80 Respiratory Rate 25 H 25 H 23 H Blood Pressure Pulse Oximetry Oxygen Delivery Fraction of Inspired Oxygen 03/29/25 21:00 03/29/25 21:05 03/29/25 21:21 Temperature 100.5 F H Pulse Rate 74 74 Respiratory Rate 22 H 21 H Blood Pressure Pulse Oximetry Oxygen Delivery Fraction of Inspired Oxygen 03/29/25 21:21 03/29/25 22:00 03/29/25 22:00 Temperature Pulse Rate 74 72 72 Respiratory Rate 21 H 25 H Blood Pressure Pulse Oximetry Oxygen Delivery Fraction of Inspired Oxygen 03/29/25 22:00 03/29/25 22:00 03/29/25 22:52 Temperature Pulse Rate 72 72 67 Respiratory Rate 25 H 24 H Blood Pressure 129/80 Pulse Oximetry 98 99 Oxygen Delivery Mechanical Ventilation Fraction of Inspired Oxygen 30 03/30/25 00:00 03/30/25 00:00 03/30/25 00:00 Temperature Pulse Rate 65 65 65 Respiratory Rate 26 H 26 H 26 H Blood Pressure Pulse Oximetry Oxygen Delivery Fraction of Inspired Oxygen 03/30/25 00:00 03/30/25 00:00 03/30/25 00:00 Temperature Pulse Rate 65 65 Respiratory Rate 26 H 26 H Blood Pressure Pulse Oximetry 100 Oxygen Delivery Mechanical Ventilation Fraction of Inspired Oxygen 30 30 03/30/25 00:00 03/30/25 00:00 03/30/25 01:44 Temperature 99.6 F Pulse Rate 76 64 62 Respiratory Rate 24 H 25 H Blood Pressure 132/82 Pulse Oximetry 100 Oxygen Delivery Fraction of Inspired Oxygen 03/30/25 01:47 03/30/25 01:57 03/30/25 02:00 Temperature 99.3 F Pulse Rate 62 76 70 Respiratory Rate 24 H 24 H Blood Pressure 136/83 Pulse Oximetry 100 97 Oxygen Delivery Mechanical Ventilation Fraction of Inspired Oxygen 30 03/30/25 02:00 03/30/25 02:00 03/30/25 02:00 Temperature Pulse Rate 68 76 83 Respiratory Rate 27 H 27 H Blood Pressure Pulse Oximetry Oxygen Delivery Fraction of Inspired Oxygen 03/30/25 03:09 03/30/25 03:09 03/30/25 04:00 Temperature Pulse Rate 64 64 63 Respiratory Rate 25 H 25 H 25 H Blood Pressure Pulse Oximetry 100 Oxygen Delivery Mechanical Ventilation Fraction of Inspired Oxygen 30 03/30/25 04:00 03/30/25 04:00 03/30/25 04:00 Temperature 98.8 F Pulse Rate 62 63 Respiratory Rate 25 H Blood Pressure 133/86 Pulse Oximetry 96 Oxygen Delivery Fraction of Inspired Oxygen 30 03/30/25 04:00 03/30/25 04:00 03/30/25 04:35 Temperature Pulse Rate 63 63 62 Respiratory Rate 25 H 25 H Blood Pressure Pulse Oximetry 97 Oxygen Delivery Mechanical Ventilation Fraction of Inspired Oxygen 30 03/30/25 04:36 03/30/25 04:37 03/30/25 06:00 Temperature Pulse Rate 60 60 61 Respiratory Rate 24 H 24 H 23 H Blood Pressure Pulse Oximetry Oxygen Delivery Fraction of Inspired Oxygen 03/30/25 06:00 03/30/25 06:00 03/30/25 06:00 Temperature 98.2 F Pulse Rate 61 63 61 Respiratory Rate 23 H 21 H 24 H Blood Pressure 124/82 Pulse Oximetry 97 Oxygen Delivery Fraction of Inspired Oxygen 03/30/25 06:00 03/30/25 06:30 03/30/25 06:40 Temperature Pulse Rate 60 60 62 Respiratory Rate 22 H 25 H Blood Pressure Pulse Oximetry Oxygen Delivery Fraction of Inspired Oxygen 03/30/25 07:25 03/30/25 07:33 03/30/25 07:36 Temperature Pulse Rate 75 79 81 Respiratory Rate 24 H 32 H 32 H Blood Pressure Pulse Oximetry Oxygen Delivery Fraction of Inspired Oxygen 03/30/25 07:43 03/30/25 07:43 Temperature Pulse Rate 79 79 Respiratory Rate 22 H Blood Pressure Pulse Oximetry 98 Oxygen Delivery Mechanical Ventilation Fraction of Inspired Oxygen 30 <Kristi Rhodes, Student - Last Filed: 03/30/25 08:09> Intake/Output Intake/Output: Intake & Output 03/27/25 03/28/25 03/29/25 03/30/25 23:59 23:59 23:59 23:59 Intake Total 2004.0 2108.6 3439.7 1567.5 Output Total 1250 1200 1550 2650 Balance 754.0 908.6 1889.7 -1082.5 <Kristi Rhodes, Student - Last Filed: 03/30/25 08:09> Meds/Results Medications: Active Medications Generic Name Dose Route Start Last Admin Trade Name Freq PRN Reason Stop Dose Admin Acetaminophen 650 mg 03/26/25 20:27 03/29/25 20:02 Acetaminophen Elixir 325 Mg/10.15 Ml Udc FEED TUBE 650 mg Q6H PRN Administration Mild Pain (1-3) or Fever Albuterol/Ipratropium 3 ml 03/28/25 08:15 03/30/25 07:43 Ipratropium 0.5 Mg/Albuterol Sulfate 2.5 Mg Ampul.Neb 3 Ml INHALATION 3 ml Q6HRT SHANE Administration Enoxaparin Sodium 40 mg 03/27/25 09:00 03/29/25 08:36 Enoxaparin 40 Mg/0.4 Ml Syringe SUB-Q 40 mg DAILY SHANE Administration Fentanyl Citrate 50 mcg 03/27/25 13:57 03/30/25 03:12 Fentanyl Citrate Inj (*Crx) 100 Mcg/2 Ml Vial IV PUSH 50 mcg Q4H PRN Administration Sedation Cefepime HCl 2 gm in 50 mls @ 100 mls/hr 03/27/25 05:00 03/30/25 05:10 Maxipime 2 Gm/Ns 50 Ml IVPB Infused Q8H SHANE Infusion Metronidazole 500 mg in 100 mls @ 100 mls/hr 03/27/25 06:00 03/30/25 05:41 Flagyl 500 Mg/Iso Soln 100 Ml IVPB 100 mls/hr Q8H SHANE Administration Dexmedetomidine HCl 400 mcg in 100 mls @ 29.51 mls/hr 03/29/25 11:15 03/30/25 06:00 Precedex 400 Mcg/100 Ml IV CONT 1.5 mcg/kg/hr .Q3H24M SHANE 34.05 mls/hr Administration Protocol 1.3 MCG/KG/HR Vancomycin HCl 1,750 mg in 500 mls @ 250 mls/hr 03/29/25 18:00 03/30/25 05:10 Vancomycin 1,750 Mg/Ns 500 Ml IVPB Infused Q8H SHANE Infusion Propofol 100 mls @ 10.896 mls/hr 03/29/25 20:00 03/30/25 07:36 Diprivan IV CONT 20 mcg/kg/min .Q9H11M SHANE 10.9 mls/hr Titration Protocol 20 MCG/KG/MIN Multi-Ingred Cream/Lotion/Oil/Oint 1 applic 03/29/25 21:00 03/29/25 21:15 Mineral Oil/White Petrolatum Ointment EACH EYE 1 applic Q12HR SHANE Administration Pantoprazole Sodium 40 mg 03/27/25 09:00 03/29/25 08:36 Pantoprazole Sodium Iv 40 Mg Vial IV PUSH 40 mg QAM SHANE Administration <Kristi Rhodes, Student - Last Filed: 03/30/25 08:09> Radiology Results: ITS Impressions Abdomen X-Ray 03/26/25 05:30 Impression: NG tube in satisfactory position. Head CT 03/27/25 10:57 Impression: No acute abnormality. No change from prior exam. 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 Overlying postoperative change of the frontal bones. Chest CTA 03/27/25 10:58 Impression: No evidence of pulmonary embolus, aortic dissection, or aortic aneurysm. Extensive bilateral lower lobe airspace consolidation is suspicious for bilateral pneumonia versus possibly atelectasis, left worse than right. Chest X-Ray 03/30/25 06:49 Impression: Basilar pulmonary edema/atelectasis versus possibly pneumonia. Correlate clinically. Support tubes, as above. <Kristi Rhodes, Student - Last Filed: 03/30/25 08:09> Labs Labs: Laboratory Results - last 24 hr 03/29/25 03/30/25 03/30/25 17:00 03:48 04:46 WBC 8.9 RBC 3.76 L Hgb 10.7 L Hct 33.8 L MCV 89.9 MCH 28.5 MCHC 31.7 L RDW 12.8 Plt Count 196 MPV 10.2 Immature Gran % (Auto) 0.8 H Neut % (Auto) 78.9 H Lymph % (Auto) 7.4 L Spink % (Auto) 6.5 Eos % (Auto) 6.2 H Baso % (Auto) 0.2 Lymph # (Auto) 0.66 L Spink # (Auto) 0.6 Eos # (Auto) 0.6 H Baso # (Auto) 0.0 Abs Immat Gran (auto) 0.07 H Absolute Neuts (auto) 7.0 H Absolute Nucleated RBC 0.000 Nucleated RBC % 0.0 Puncture Site Right radial ABG pH 7.397 ABG pCO2 42.9 ABG pO2 97.2 ABG PO2/FiO2 Ratio 3.24 ABG HCO3 25.8 ABG O2 Saturation 97.4 ABG O2 Content 16.1 ABG Base Excess 0.8 A-a Gradient 66.3 Oxyhemoglobin 97.0 Carboxyhemoglobin 0.3 Methemoglobin 0.2 Reduced Hemoglobin 2.5 Total Hemoglobin 11.7 L O2 Delivery Device Ventilator O2 Liters/Min Not Reportable Minute Volume Not Reportable Vent Rate 18 Vent Mode Cmv FiO2 30 Tidal Volume 450 PEEP 5 Peak Inspir Pressure Not Reportable Pressure Support Not Reportable Sodium 141 Potassium 4.1 Chloride 107 Carbon Dioxide 29 Anion Gap 5 BUN 16 Creatinine 0.79 Estim Creat Clear Calc 117 Estimated GFR > 60 Glucose 120 H Calcium 8.7 Phosphorus 2.5 Magnesium 2.1 Total Bilirubin 0.4 AST 24 ALT 22 Alkaline Phosphatase 94 Total Protein 7.0 Albumin 3.2 L Vancomycin Trough 13.2 <Kristi Rhodes, Student - Last Filed: 03/30/25 08:09> Quality VTE Prophylaxis VTE prophylaxis: pharmacologic ordered <Kristi Rhodes Student - Last Filed: 03/30/25 08:09> Attestation Student Attestation H&P performed by JARON Lucero-IV <Kristi Rhodes Student - Last Filed: 03/30/25 08:09>
[2025-03-30] MEDS: ENOXAPARIN 40 MG/0.4 ML SYRINGE SUB-Q (08:22)
[2025-03-30] MEDS: PANTOPRAZOLE SODIUM IV 40 MG VIAL IV PUSH (08:22)
[2025-03-30] MEDS: MINERAL OIL/WHITE PETROLATUM OINTMENT 1 APPLIC EACH EYE ×2 (08:24→20:39)
[2025-03-30] MEDS: PROPOFOL IV EMULSION 100 ML 27.24 MG IV CONT ×5 (08:57→22:18)
[2025-03-30] MEDS: polyethylene glycoL 3350 17 GM POWD.PACK PO (10:30)
--- NOTE | 2025-03-30 11:07 | PCFNICU ---
ICU Rounding Note: Pt current nutrition is Vital 1.2 @ 40 ml/h. Flush 30 ml q 4 h. Nutrition recommendation: Protein modular: Prosource TF BID for additional 180 kcal and 40 g protein/day to better meet protein energy needs. Bowel regimen Last recorded weight is 91.7 kg. Bowel Motility: No BMs. Miralax added Labs Reviewed: Hgb 10.7, Hct 33.8, Alb 3.2, Glu 120 Meds Noted: Precedex, propofol @27.24 ml/h= 719 kcal Skin: No skin issues Additional Notes: Continues on vent day 5. Vital 1.2 @ 40 ml.h provides 1056 kcall, 66 g protien, 714 ml free water. With Prosource BID provides total 1236 kcal, 106 g protein, 714 ml free water. Kcals total with propofol =1950. Adequate for needs Following daily in ICU rounds. Will monitor weight, labs, skin, diet orders, meds every Sunday and Sunday. .
[2025-03-30] MEDS: ACETYLCYSTEINE 20% INHAL SOLN 800 MG/4 ML VIAL 200 MG INHALATION ×2 (13:10→20:42)
[2025-03-30] MEDS: MIDAZOLAM HCL (*CRX) 2 MG/2 ML VIAL 4 MG IV PUSH (13:57)
[2025-03-30] MEDS: MIDAZOLAM 100MG/NS 100ML(*CRX) 100 MG/100 ML BAG IV CONT (14:01)
[2025-03-30] MEDS: fentaNYL CITRATE INJ (*CRX) 100 MCG/2 ML VIAL IV PUSH (14:41)
[2025-03-30] MEDS: SENNA/DOCUSATE SODIUM TABLET 1 TAB PO (20:39)
[2025-03-31] VITALS (35 sets, daily range): BP systolic 122–154; BP diastolic 62–96; PULSE 86–115; RESP 12–28; TEMP 36.5–38.2; O2SAT 87–99
[2025-03-31] MEDS: PROPOFOL IV EMULSION 100 ML 27.24 MG IV CONT ×2 (01:51→05:40)
[2025-03-31] MEDS: ACETYLCYSTEINE 20% INHAL SOLN 800 MG/4 ML VIAL 200 MG INHALATION ×2 (02:07→08:12)
[2025-03-31] MEDS: IPRATROPIUM 0.5 MG/ALBUTEROL SULFATE 2.5 MG AMPUL.NEB 3 ML INHALATION ×3 (02:07→14:42)
[2025-03-31] MEDS: fentaNYL CITRATE INJ (*CRX) 100 MCG/2 ML VIAL 50 MCG IV PUSH (02:22)
[2025-03-31] MEDS: CEFEPIME 2 GM/NS 50 ML 2 GM/50 ML BAG IVPB ×3 (04:25→20:49)
[2025-03-31] MEDS: MIDAZOLAM 100MG/NS 100ML(*CRX) 100 MG/100 ML BAG 7 MG IV CONT (04:26)
[2025-03-31 04:29] LABS: Basophils Percent Auto 0.3 % (0.2-1.2); Eosinophils Absolute Auto 0.7 K/mm3 (0-0.3); Eosinophils Percent Auto 10.4 % (0-4.4); Hematocrit 34.8 % (42.0-52.0); Hemoglobin 10.9 g/dL (14.0-18.0); Lymphocytes Absolute Auto 0.79 K/mm3 (0.9-3.2); Lymphocytes Percent Auto 11.7 % (18.3-44.2); Mean Corpuscular HGB Conc 31.3 g/dl (32-36); Mean Corpuscular Hemoglobin 27.9 pg (26-34); Monocytes Absolute Auto 0.6 K/mm3 (0.1-0.6); Monocytes Percent Auto 8.4 % (2.6-8.5); Neutrophils Absolute Auto 4.5 K/mm3 (1.3-6.7); Neutrophils Percent Auto 66.2 % (45.5-73.1); Platelet Count Result 240 k/mm3 (150-375); Red Blood Count 3.91 M/mm3 (4.6-6.20); Red Cell Distribution Width 12.9 % (11.5-14.5); White Blood Count 6.8 K/mm3 (4.5-10.0)
[2025-03-31 04:47] LABS: Alanine Aminotransferase 52 U/L (6-50); Albumin Level 3.1 g/dL (3.5-5.1); Alkaline Phosphatase 122 U/L (38-126); Anion Gap 6 mmol/L (4-12); Aspartate Amino Transferase 80 U/L (17-59); Bilirubin,Total 0.3 mg/dL (0.2-1.3); Blood Urea Nitrogen 23 mg/dL (9-20); Calcium 8.4 mg/dL (8.4-10.2); Carbon Dioxide 29 mmol/L (22-30); Chloride 106 mmol/L (98-107); Estimated CRCL calculation 129 ml/min; Estimated Glomerular Filt Rate > 60; Glucose 121 mg/dL (65-110); Phosphorus 2.7 mg/dL (2.5-4.5); Potassium 3.5 mmol/L (3.4-5.0); Sodium 141 mmol/L (137-145)
[2025-03-31 04:49] LABS: Alveolar/Arterial O2 Gradient 96.7 mmHg; Base Excess ABG 1.5 mEq/l (+/-2.0); Carboxyhemoglobin 0.1 % THb (0-2.0); Fractional Inspired Oxygen 30 %; HCO3 ABG 24.8 mEq/l (22.0-26.0); Methemoglobin ABG 0.1 %THb (0-1.5); Oxygen Content ABG 15.9 %vol (16.0-22.0); Oxygen Saturation ABG 96.1 % (95.0-100.0); Oxyhemoglobin 95.7 % THb (90.0-100.0); PCO2 ABG 34.7 mmHg (35.0-45.0); PO2 ABG 76.4 mmHg (80.0-100.0); PO2 FiO2 Ratio Arterial Blood 2.55 %; Reduced Hemoglobin 4.1 %THb (0-5.0); Total Hemoglobin 11.8 g/dL (12.0-18.0); pH ABG 7.472 (7.350-7.450)
[2025-03-31 04:52] LABS: Arterial Blood Gas PEEP 5 cmH2O; Arterial Blood Gas Tidal Volume 450 ml; Arterial Blood Gas Vent Mode CMV; Arterial Blood Gas Ventilator rate 18 /MIN; Device VENTILATOR; Modified Allen's Test Pass; Site Drawn RIGHT RADIAL
[2025-03-31] MEDS: MINERAL OIL/WHITE PETROLATUM OINTMENT 1 APPLIC EACH EYE ×2 (08:37→20:49)
[2025-03-31] MEDS: polyethylene glycoL 3350 17 GM POWD.PACK PO (08:37)
[2025-03-31] MEDS: POTASSIUM CHLORIDE 20 MEQ PACKET (FOR LIQUID) 40 MEQ FEED TUBE (08:37)
[2025-03-31] MEDS: ENOXAPARIN 40 MG/0.4 ML SYRINGE SUB-Q (08:37)
[2025-03-31] MEDS: PANTOPRAZOLE SODIUM IV 40 MG VIAL IV PUSH (08:37)
[2025-03-31 09:10] LABS: Alveolar/Arterial O2 Gradient 83.7 mmHg; Base Excess ABG 2.8 mEq/l (+/-2.0); Fractional Inspired Oxygen 30 %; HCO3 ABG 25.7 mEq/l (22.0-26.0); Oxygen Content ABG 16.7 %vol (16.0-22.0); Oxygen Saturation ABG 97.6 % (95.0-100.0); Oxyhemoglobin 96.8 % THb (90.0-100.0); PCO2 ABG 33.9 mmHg (35.0-45.0); PO2 ABG 90.4 mmHg (80.0-100.0); PO2 FiO2 Ratio Arterial Blood 3.01 %; Total Hemoglobin 12.2 g/dL (12.0-18.0); pH ABG 7.498 (7.350-7.450)
[2025-03-31 09:17] LABS: Site Drawn RIGHT RADIAL
[2025-03-31 09:18] LABS: Arterial Blood Gas Pressure Support 5 cmH2O; Arterial Blood Gas Vent Mode SPONTANEOUS; Device VENTILATOR; Peak Inspiratory Pressure 5 cmH2O
--- NOTE | 2025-03-31 09:23 | WPDINTPN ---
Progress Note: A&P Assessment and Plan (1) Overdose of sympathomimetic agent: Code(s): T44.901A - Poisoning by unspecified drugs primarily affecting the autonomic nervous system, accidental (unintentional), initial encounter Status: Acute Assessment and Plan: Patient presented after overdose on fentanyl/amphetamine -patient on sympathomimetic symptoms upon arrival -sedated with Versed and propofol -03/26: was intubated due to being combative and agitated, according the notes required 8 staff members to hold him down -03/27: The patient's girlfriend stated that that he is a IV drug user (2) On mechanically assisted ventilation: Code(s): Z99.11 - Dependence on respirator [ventilator] status Status: Acute Assessment and Plan: Patient was agitated, combative in the ER -intubated with etomidate and rocuronium -currently on CMV mode of ventilation, peep of 5, 30% FiO2 -chest x-ray and ABGs reviewed -sedation was decreased. 5/5 PSV SBT done for more than 30 minutes. RSBI, ABGI and Vitals acceptable. Patient agitated but following commands. Will extubate. NPO for now. 03/27: CTA chest No evidence of PE, aortic dissection item aneurysm. Extensive bilateral lower lobe airspace consolidation, suspicious for bilateral pneumonia versus atelectasis, left worse than right Patient was on Cefepime, Vancomycin, and Metronidazole for suspected aspiration pneumonia (started 03/27) -currently on cefepime (3) Amphetamine abuse: Code(s): F15.10 - Other stimulant abuse, uncomplicated Status: Acute Assessment and Plan: Continue benzodiazepine -will genetic counsellor patient on cessation of amphetamine use once he is extubated (4) Acute kidney injury: Code(s): N17.9 - Acute kidney failure, unspecified Status: Acute Assessment and Plan: RESOLVED Likely related to sympathomimetic symptoms, hypovolemia -creatinine improved and WNL -continue to monitor urine output, renal function and electrolytes (5) Sepsis: Code(s): A41.9 - Sepsis, unspecified organism Status: Acute Assessment and Plan: Fevers, thick sputum, ventilator dysynchrony Since he is a IV drug user blood cultures were obtained on 03/27: which have been negative so far 03/27: Sputum Cx GROUP G STREP Patient on cefepime, vancomycin and Flagyl (03/27) -given these growing group G strep in his sputum, will continue cefepime and discontinue vancomycin and Flagyl 03/27: CTA chest Impression: No evidence of pulmonary embolus, aortic dissection, or aortic aneurysm. Extensive bilateral lower lobe airspace consolidation is suspicious for bilateral pneumonia versus possibly atelectasis, left worse than right. 03/27: CT brain No acute abnormality. No change from prior exam. 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 Overlying postoperative change of the frontal bones. Plan DVT prophylaxis: Lovenox Stress ulcer prophylaxis: Protonix Nutrition: He was on tube feeds which are on hold now for being trial Code Status: Full code Critical Care Time Spent: 30 minutes Due to a high probability of clinically significant, life threatening deterioration, the patient required my highest level of preparedness to intervene emergently and I personally spent this critical care time directly and personally managing the patient. This critical care time included obtaining a history; examining the patient; pulse oximetry; ordering and review of studies; arranging urgent treatment with development of a management plan; evaluation of patient's response to treatment; frequent reassessment; and discussions with other providers. It was exclusive of separately billable procedures and treating other patients and teaching time. Please see Assessment and Plan section and the rest of the note for further information on patient assessment and treatment This dictation may have been done utilizing a voice recognition system. Attempts have been made to correct errors. However, there may be uncorrected grammatical, spelling, and recognitions errors present. Subjective Date/time seen: 03/31/25 Overnight events reviewed. febrile Continues to be on mechanical ventilation 30% FiO2 Tolerating tube feed Continues to be sedated with propofol and Versed Other Vitals acceptable Adequate urine output Interval history: 03/26- Intubated 03/27- CTA Chest c/w pneumonia, cefepime, vancomycin, and metronidazole started 03/30- Sputum culture positive for Group G Strep (susceptible to Penicillin and other beta-lactams) Review of Systems Review of Systems: ROS unobtainable: Yes unobtainable due to endotracheal tube Exam Narrative: General: Well-built gentleman in no acute distress HEENT:? Pupils equal and reactive, sclera is clear, ETT in place Neck:? Supple Respiratory:? Clear to auscultation bilaterally, no wheezing, adequate air entry Cardiac:? S1-S2 normal, regular rate and rhythm Abdomen:? Soft, nontender nondistended, hypoactive bowel sounds Extremities:? No edema, palpable pedal pulses Neuro:? Patient intubated, sedated with Versed and propofol, on loading sedation he follows simple commands with all 4 extremities Skin:? Warm and dry, no lesions noted Psych:? Unable to assess at this time Objective Data Vital Signs Vital Signs: Vital Signs - 24 hr 03/30/25 10:00 03/30/25 10:00 03/30/25 10:00 Temperature 36.9 C Pulse Rate 61 61 59 L Respiratory Rate 20 19 Blood Pressure 132/86 Pulse Oximetry 99 Oxygen Delivery Fraction of Inspired Oxygen 03/30/25 10:25 03/30/25 10:25 03/30/25 11:00 Temperature Pulse Rate 59 L 59 L 60 Respiratory Rate 18 18 Blood Pressure Pulse Oximetry 99 Oxygen Delivery Mechanical Ventilation Fraction of Inspired Oxygen 30 03/30/25 11:39 03/30/25 11:39 03/30/25 11:50 Temperature Pulse Rate 61 61 61 Respiratory Rate 18 18 18 Blood Pressure Pulse Oximetry Oxygen Delivery Fraction of Inspired Oxygen 03/30/25 11:54 03/30/25 12:00 03/30/25 12:00 Temperature 37.0 C Pulse Rate 78 60 Respiratory Rate 18 21 H Blood Pressure 133/87 Pulse Oximetry 99 99 Oxygen Delivery Mechanical Ventilation Fraction of Inspired Oxygen 03/30/25 12:00 03/30/25 12:00 03/30/25 12:00 Temperature Pulse Rate 59 L 61 Respiratory Rate 18 Blood Pressure Pulse Oximetry Oxygen Delivery Fraction of Inspired Oxygen 30 03/30/25 12:45 03/30/25 12:45 03/30/25 13:10 Temperature Pulse Rate 60 60 61 Respiratory Rate 22 H 22 H Blood Pressure Pulse Oximetry 99 Oxygen Delivery Mechanical Ventilation Fraction of Inspired Oxygen 30 03/30/25 13:10 03/30/25 13:34 03/30/25 14:00 Temperature 37.6 C Pulse Rate 61 72 80 Respiratory Rate 21 H 24 H 24 H Blood Pressure 131/85 Pulse Oximetry 94 Oxygen Delivery Fraction of Inspired Oxygen 03/30/25 14:00 03/30/25 14:00 03/30/25 14:01 Temperature Pulse Rate 79 84 80 Respiratory Rate 20 28 H Blood Pressure Pulse Oximetry Oxygen Delivery Fraction of Inspired Oxygen 03/30/25 14:15 03/30/25 14:36 03/30/25 14:37 Temperature Pulse Rate 79 79 79 Respiratory Rate 28 H 22 H 22 H Blood Pressure Pulse Oximetry Oxygen Delivery Fraction of Inspired Oxygen 03/30/25 15:19 03/30/25 15:47 03/30/25 15:47 Temperature Pulse Rate 62 61 61 Respiratory Rate 20 20 20 Blood Pressure Pulse Oximetry Oxygen Delivery Fraction of Inspired Oxygen 03/30/25 15:52 03/30/25 16:00 03/30/25 16:00 Temperature 37.8 C H Pulse Rate 61 61 Respiratory Rate 20 18 Blood Pressure 116/72 Pulse Oximetry 100 98 Oxygen Delivery Mechanical Ventilation Fraction of Inspired Oxygen 03/30/25 16:00 03/30/25 16:00 03/30/25 16:00 Temperature Pulse Rate 61 61 Respiratory Rate 20 Blood Pressure Pulse Oximetry Oxygen Delivery Fraction of Inspired Oxygen 30 03/30/25 16:00 03/30/25 16:17 03/30/25 16:30 Temperature Pulse Rate 61 60 60 Respiratory Rate 20 20 Blood Pressure Pulse Oximetry 97 Oxygen Delivery Mechanical Ventilation Fraction of Inspired Oxygen 30 03/30/25 17:00 03/30/25 17:33 03/30/25 18:00 Temperature Pulse Rate 61 62 64 Respiratory Rate 19 19 Blood Pressure Pulse Oximetry Oxygen Delivery Fraction of Inspired Oxygen 03/30/25 18:00 03/30/25 18:01 03/30/25 18:02 Temperature 37.9 C H Pulse Rate 64 65 64 Respiratory Rate 20 19 19 Blood Pressure 112/67 Pulse Oximetry 97 Oxygen Delivery Fraction of Inspired Oxygen 03/30/25 18:03 03/30/25 18:31 03/30/25 19:07 Temperature Pulse Rate 65 67 73 Respiratory Rate 20 22 H 22 H Blood Pressure Pulse Oximetry Oxygen Delivery Fraction of Inspired Oxygen 03/30/25 19:07 03/30/25 19:43 03/30/25 20:00 Temperature 37.8 C H Pulse Rate 73 79 79 Respiratory Rate 22 H 24 H 23 H Blood Pressure 114/70 Pulse Oximetry 98 Oxygen Delivery Fraction of Inspired Oxygen 03/30/25 20:00 03/30/25 20:00 03/30/25 20:00 Temperature Pulse Rate 79 78 80 Respiratory Rate 23 H 23 H Blood Pressure Pulse Oximetry Oxygen Delivery Fraction of Inspired Oxygen 03/30/25 20:00 03/30/25 20:00 03/30/25 20:20 Temperature Pulse Rate 80 Respiratory Rate Blood Pressure Pulse Oximetry 98 97 Oxygen Delivery Mechanical Ventilation Mechanical Ventilation Fraction of Inspired Oxygen 30 30 30 03/30/25 20:44 03/30/25 20:52 03/30/25 21:10 Temperature Pulse Rate 80 80 83 Respiratory Rate 20 24 H 25 H Blood Pressure Pulse Oximetry Oxygen Delivery Fraction of Inspired Oxygen 03/30/25 21:45 03/30/25 22:00 03/30/25 22:00 Temperature 37.7 C H Pulse Rate 84 84 84 Respiratory Rate 23 H 22 H Blood Pressure 123/73 Pulse Oximetry 94 Oxygen Delivery Fraction of Inspired Oxygen 03/30/25 22:00 03/30/25 22:00 03/30/25 22:18 Temperature Pulse Rate 83 84 85 Respiratory Rate 25 H 26 H 25 H Blood Pressure Pulse Oximetry Oxygen Delivery Fraction of Inspired Oxygen 03/30/25 22:18 03/30/25 22:40 03/30/25 23:00 Temperature Pulse Rate 85 85 88 Respiratory Rate 25 H 26 H 25 H Blood Pressure Pulse Oximetry Oxygen Delivery Fraction of Inspired Oxygen 03/30/25 23:11 03/31/25 00:00 03/31/25 00:00 Temperature Pulse Rate 88 88 88 Respiratory Rate 25 H 25 H Blood Pressure Pulse Oximetry 96 Oxygen Delivery Mechanical Ventilation Fraction of Inspired Oxygen 30 03/31/25 00:00 03/31/25 00:00 03/31/25 00:00 Temperature 37.9 C H Pulse Rate 88 86 88 Respiratory Rate 25 H 25 H Blood Pressure 131/92 H Pulse Oximetry 96 Oxygen Delivery Fraction of Inspired Oxygen 03/31/25 00:00 03/31/25 00:00 03/31/25 01:51 Temperature Pulse Rate 93 Respiratory Rate 23 H Blood Pressure Pulse Oximetry 98 Oxygen Delivery Mechanical Ventilation Fraction of Inspired Oxygen 30 30 03/31/25 01:51 03/31/25 02:00 03/31/25 02:00 Temperature 38.2 C H Pulse Rate 93 93 93 Respiratory Rate 23 H 25 H Blood Pressure 135/83 Pulse Oximetry 94 Oxygen Delivery Fraction of Inspired Oxygen 03/31/25 02:00 03/31/25 02:00 03/31/25 02:06 Temperature Pulse Rate 93 93 93 Respiratory Rate 25 H 25 H Blood Pressure Pulse Oximetry 94 Oxygen Delivery Mechanical Ventilation Fraction of Inspired Oxygen 30 03/31/25 02:07 03/31/25 02:14 03/31/25 04:00 Temperature Pulse Rate 88 93 95 Respiratory Rate 23 H 26 H 25 H Blood Pressure Pulse Oximetry Oxygen Delivery Fraction of Inspired Oxygen 03/31/25 04:00 03/31/25 04:00 03/31/25 04:00 Temperature 38.1 C H Pulse Rate 96 96 Respiratory Rate 25 H 25 H Blood Pressure 133/83 Pulse Oximetry 95 Oxygen Delivery Fraction of Inspired Oxygen 30 03/31/25 04:00 03/31/25 04:00 03/31/25 04:26 Temperature Pulse Rate 96 95 Respiratory Rate 23 H Blood Pressure Pulse Oximetry 98 Oxygen Delivery Mechanical Ventilation Fraction of Inspired Oxygen 30 03/31/25 04:26 03/31/25 04:54 03/31/25 05:40 Temperature Pulse Rate 95 95 94 Respiratory Rate 23 H 23 H Blood Pressure Pulse Oximetry 95 Oxygen Delivery Mechanical Ventilation Fraction of Inspired Oxygen 30 03/31/25 05:40 03/31/25 06:00 03/31/25 06:00 Temperature Pulse Rate 94 91 91 Respiratory Rate 23 H 21 H 22 H Blood Pressure Pulse Oximetry Oxygen Delivery Fraction of Inspired Oxygen 03/31/25 06:00 03/31/25 06:00 03/31/25 07:49 Temperature 37.5 C Pulse Rate 91 91 87 Respiratory Rate 22 H 18 Blood Pressure 136/62 Pulse Oximetry 98 Oxygen Delivery Fraction of Inspired Oxygen 03/31/25 07:49 03/31/25 08:00 03/31/25 08:00 Temperature 37.3 C Pulse Rate 87 86 Respiratory Rate 18 20 Blood Pressure 132/96 H Pulse Oximetry 99 Oxygen Delivery Fraction of Inspired Oxygen 30 03/31/25 08:14 03/31/25 08:14 03/31/25 08:25 Temperature Pulse Rate 91 91 90 Respiratory Rate 20 23 H Blood Pressure Pulse Oximetry 99 Oxygen Delivery Mechanical Ventilation Fraction of Inspired Oxygen 30 03/31/25 08:36 Temperature Pulse Rate 93 Respiratory Rate 20 Blood Pressure Pulse Oximetry Oxygen Delivery Fraction of Inspired Oxygen Intake/Output Intake/Output: Intake & Output 03/28/25 03/29/25 03/30/25 03/31/25 23:59 23:59 23:59 23:59 Intake Total 2108.6 3439.7 3033.6 890.3 Output Total 1200 1550 4700 800 Balance 908.6 1889.7 -1666.4 90.3 Meds/Results Medications: Active Medications Generic Name Dose Route Start Last Admin Trade Name Freq PRN Reason Stop Dose Admin Acetaminophen 650 mg 03/26/25 20:27 03/29/25 20:02 Acetaminophen Elixir 325 Mg/10.15 Ml Udc FEED TUBE 650 mg Q6H PRN Administration Mild Pain (1-3) or Fever Albuterol/Ipratropium 3 ml 03/28/25 08:15 03/31/25 08:12 Ipratropium 0.5 Mg/Albuterol Sulfate 2.5 Mg Ampul.Neb 3 Ml INHALATION 3 ml Q6HRT SHANE Administration Enoxaparin Sodium 40 mg 03/27/25 09:00 03/31/25 08:37 Enoxaparin 40 Mg/0.4 Ml Syringe SUB-Q 40 mg DAILY SHANE Administration Cefepime HCl 2 gm in 50 mls @ 100 mls/hr 03/27/25 05:00 03/31/25 05:03 Maxipime 2 Gm/Ns 50 Ml IVPB Infused Q8H SHANE Infusion Multi-Ingred Cream/Lotion/Oil/Oint 1 applic 03/29/25 21:00 03/31/25 08:37 Mineral Oil/White Petrolatum Ointment EACH EYE 1 applic Q12HR SHANE Administration Pantoprazole Sodium 40 mg 03/27/25 09:00 03/31/25 08:37 Pantoprazole Sodium Iv 40 Mg Vial IV PUSH 40 mg QAM SHANE Administration Polyethylene Glycol 17 gm 03/30/25 10:25 03/31/25 08:37 Polyethylene Glycol 3350 17 Gm Powd.Pack PO 17 gm QAM SHANE Administration Senna/Docusate Sodium 1 tab 03/30/25 21:00 03/30/25 20:39 Senna/Docusate Sodium Tablet PO 1 tab HS SHANE Administration Radiology Results: ITS Impressions Abdomen X-Ray 03/26/25 05:30 Impression: NG tube in satisfactory position. Head CT 03/27/25 10:57 Impression: No acute abnormality. No change from prior exam. 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 Overlying postoperative change of the frontal bones. Chest CTA 03/27/25 10:58 Impression: No evidence of pulmonary embolus, aortic dissection, or aortic aneurysm. Extensive bilateral lower lobe airspace consolidation is suspicious for bilateral pneumonia versus possibly atelectasis, left worse than right. Chest X-Ray 03/31/25 06:19 Impression: Left basilar pulmonary edema/atelectasis versus pneumonia. Support tubes, as above. Labs Labs: Laboratory Results - last 24 hr 03/31/25 03/31/25 03/31/25 04:21 04:46 08:56 WBC 6.8 RBC 3.91 L Hgb 10.9 L Hct 34.8 L MCV 89.0 MCH 27.9 MCHC 31.3 L RDW 12.9 Plt Count 240 MPV 10.0 Immature Gran % (Auto) 3.0 H Neut % (Auto) 66.2 Lymph % (Auto) 11.7 L [place] % (Auto) 8.4 Eos % (Auto) 10.4 H Baso % (Auto) 0.3 Lymph # (Auto) 0.79 L [place] # (Auto) 0.6 Eos # (Auto) 0.7 H Baso # (Auto) 0.0 Abs Immat Gran (auto) 0.20 H Absolute Neuts (auto) 4.5 Absolute Nucleated RBC 0.000 Nucleated RBC % 0.0 Puncture Site Right radial Right radial ABG pH 7.472 H 7.498 H ABG pCO2 34.7 L 33.9 L ABG pO2 76.4 L 90.4 ABG PO2/FiO2 Ratio 2.55 3.01 ABG HCO3 24.8 25.7 ABG O2 Saturation 96.1 97.6 ABG O2 Content 15.9 L 16.7 ABG Base Excess 1.5 2.8 A-a Gradient 96.7 83.7 Oxyhemoglobin 95.7 96.8 Carboxyhemoglobin 0.1 Methemoglobin 0.1 Reduced Hemoglobin 4.1 Total Hemoglobin 11.8 L 12.2 O2 Delivery Device Ventilator Ventilator O2 Liters/Min Not Reportable Not Reportable Minute Volume Not Reportable Not Reportable Vent Rate 18 Not Reportable Vent Mode Cmv Spontaneous FiO2 30 30 Tidal Volume 450 Not Reportable PEEP 5 Not Reportable Peak Inspir Pressure Not Reportable 5 Pressure Support Not Reportable 5 Sodium 141 Potassium 3.5 Chloride 106 Carbon Dioxide 29 Anion Gap 6 BUN 23 H Creatinine 0.71 Estim Creat Clear Calc 129 Estimated GFR > 60 Glucose 121 H Calcium 8.4 Phosphorus 2.7 Magnesium 2.0 Total Bilirubin 0.3 AST 80 H ALT 52 H Alkaline Phosphatase 122 Total Protein 7.0 Albumin 3.1 L Quality VTE Prophylaxis VTE prophylaxis: pharmacologic ordered
--- NOTE | 2025-03-31 11:35 | PCNFU ---
Nutrition Follow-Up Complete: Suboptimal Energy Intake as related to mechanical vent as evidenced by NPO. Goal: Meet estimated nutritional needs. Patient is progressing towards goal. We will continue current goal. Pt current nutrition is NPO. Last recorded weight is 91.8 kg, up from 86 kg on admit. Bowel Motility: No BM reported. Labs Reviewed:Glu 121, BUN 23, Alb 3.1 Meds Noted:Senokot, Lovenox, Miralax. Skin: WNL Additional Notes:Patient has been extubated today. Diet orders NPO at this time. Recommend advancing diet as tolerated per MD orders when medically able. Will monitor daily in ICU rounds and reassess every 3 days.
[2025-04-01] VITALS (31 sets, daily range): BP systolic 140–160; BP diastolic 82–95; PULSE 89–126; RESP 18–28; TEMP 36.5–37.2; O2SAT 90–98
[2025-04-01] MEDS: QUEtiapine FUMARATE 25 MG TABLET 50 MG PO (02:32)
[2025-04-01] MEDS: IPRATROPIUM 0.5 MG/ALBUTEROL SULFATE 2.5 MG AMPUL.NEB 3 ML INHALATION ×4 (02:45→20:32)
[2025-04-01] MEDS: CEFEPIME 2 GM/NS 50 ML 2 GM/50 ML BAG IVPB (04:38)
--- NOTE | 2025-04-01 05:00 | PC.NURSE ---
Pt has been up all night, hyper fixated on random things in his room, and very anxious. Pt has utilized his call light all night long, for random requests throughout this shift. Example: Pt needed the nurse right away. Upon entering his room, the pt was dumping out tissues from his blue emesis bag, wanting help finding the xanax and extasy pills that were hidden in there. Pt called numerous times throughout the night for such requests. Pt has been very difficult to redirect, however has been pleasant when staff is trying to assist him. No agitation or aggression.
--- NOTE | 2025-04-01 09:24 | P.PNIM_ITS ---
Progress Note: A&P Assessment and Plan (1) Overdose of sympathomimetic agent: Code(s): T44.901A - Poisoning by unspecified drugs primarily affecting the autonomic nervous system, accidental (unintentional), initial encounter Status: Acute Assessment and Plan: Patient presented after overdose on fentanyl/amphetamine -patient on sympathomimetic symptoms upon arrival -sedated with Versed and propofol -03/26: was intubated due to being combative and agitated, according the notes required 8 staff members to hold him down -03/27: The patient's girlfriend stated that that he is a IV drug user -0 7: Currently on IMU and extubated yesterday (2) On mechanically assisted ventilation: Code(s): Z99.11 - Dependence on respirator [ventilator] status Status: Acute Assessment and Plan: Patient was agitated, combative in the ER -intubated with etomidate and rocuronium -currently on CMV mode of ventilation, peep of 5, 30% FiO2 -chest x-ray and ABGs reviewed -sedation was decreased. 5/5 PSV SBT done for more than 30 minutes. RSBI, ABGI and Vitals acceptable. Patient agitated but following commands. Will extubate. NPO for now. -Extubated 03/27: CTA chest No evidence of PE, aortic dissection item aneurysm. Extensive bilateral lower lobe airspace consolidation, suspicious for bilateral pneumonia versus atelectasis, left worse than right Patient was on Cefepime, Vancomycin, and Metronidazole for suspected aspiration pneumonia (started 03/27) -currently on cefepime (3) Amphetamine abuse: Code(s): F15.10 - Other stimulant abuse, uncomplicated Status: Acute Assessment and Plan: Continue benzodiazepine -will counseling specialist patient on cessation of amphetamine use once he is extubated (4) Acute kidney injury: Code(s): N17.9 - Acute kidney failure, unspecified Status: Acute Assessment and Plan: RESOLVED Likely related to sympathomimetic symptoms, hypovolemia -creatinine improved and WNL -continue to monitor urine output, renal function and electrolytes (5) Sepsis: Code(s): A41.9 - Sepsis, unspecified organism Status: Acute Assessment and Plan: Fevers, thick sputum, ventilator dysynchrony Since he is a IV drug user blood cultures were obtained on 03/27: which have been negative so far 03/27: Sputum Cx GROUP G STREP Patient on cefepime, vancomycin and Flagyl (03/27) -given these growing group G strep in his sputum, discontinue vancomycin , cefepime and Flagyl 03/27: CTA chest Impression: No evidence of pulmonary embolus, aortic dissection, or aortic aneurysm. Extensive bilateral lower lobe airspace consolidation is suspicious for b ilateral pneumonia versus possibly atelectasis, left worse than right. 03/27: CT brain No acute abnormality. No change from prior exam. 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 Overlying postoperative change of the frontal bones. Subjective Date/time seen: 04/01/25 09:24 Interval history: Patient currently doing well. Discontinued cefepime and started amoxicillin/clav. Review of Systems Review of Systems: Unable to do ROS as patient was intubated and sedated ROS unobtainable: Yes unobtainable due to endotracheal tube and unobtainable due to mental status Exam Narrative: General: Well-built gentleman in no acute distress HEENT:? Pupils equal and reactive, sclera is clear, ETT in place Neck:? Supple Respiratory:? Clear to auscultation bilaterally, no wheezing, adequate air entry Cardiac:? S1-S2 normal, regular rate and rhythm Abdomen:? Soft, nontender nondistended, hypoactive bowel sounds Extremities:? No edema, palpable pedal pulses Neuro:? Patient intubated, sedated with Versed and propofol, on loading sedation he follows simple commands with all 4 extremities Skin:? Warm and dry, no lesions noted Psych:? Unable to assess at this time Objective Data Vital Signs Vital Signs: Vital Signs - 24 hr 03/31/25 09:25 03/31/25 09:26 03/31/25 10:00 Temperature 99.4 F Pulse Rate 101 H 98 Respiratory Rate 12 Blood Pressure 154/92 H Pulse Oximetry 96 96 97 Oxygen Delivery Nasal Cannula Oxygen Flow Rate 2 03/31/25 10:00 03/31/25 10:00 03/31/25 12:00 Temperature 99.7 F H Pulse Rate 107 H 92 Respiratory Rate 18 Blood Pressure 122/72 Pulse Oximetry 93 97 Oxygen Delivery Nasal Cannula Oxygen Flow Rate 2 03/31/25 12:00 03/31/25 12:00 03/31/25 12:56 Temperature Pulse Rate 96 102 H Respiratory Rate 20 Blood Pressure Pulse Oximetry 97 Oxygen Delivery Nasal Cannula Oxygen Flow Rate 2 03/31/25 14:00 03/31/25 14:00 03/31/25 14:43 Temperature Pulse Rate 104 H 106 H 101 H Respiratory Rate 19 14 Blood Pressure 136/96 H Pulse Oximetry 96 Oxygen Delivery Oxygen Flow Rate 03/31/25 16:00 03/31/25 16:00 03/31/25 16:00 Temperature 98.4 F Pulse Rate 108 H 115 H Respiratory Rate 17 Blood Pressure 149/94 H Pulse Oximetry 94 94 Oxygen Delivery Nasal Cannula Oxygen Flow Rate 2 03/31/25 16:50 03/31/25 17:00 03/31/25 17:00 Temperature Pulse Rate Respiratory Rate Blood Pressure Pulse Oximetry 94 87 L 87 L Oxygen Delivery Nasal Cannula Nasal Cannula Oxygen Flow Rate 4 4 03/31/25 18:00 03/31/25 18:00 03/31/25 20:00 Temperature 99.2 F Pulse Rate 109 H 110 H 112 H Respiratory Rate 12 17 Blood Pressure 134/96 H 148/63 H Pulse Oximetry 96 96 Oxygen Delivery Oxygen Flow Rate 03/31/25 20:00 03/31/25 20:00 03/31/25 21:46 Temperature Pulse Rate 112 H 103 H Respiratory Rate 20 Blood Pressure Pulse Oximetry Oxygen Delivery Room Air Oxygen Flow Rate 03/31/25 21:56 03/31/25 22:00 03/31/25 23:08 Temperature Pulse Rate 105 H 111 H Respiratory Rate 20 Blood Pressure Pulse Oximetry 95 Oxygen Delivery Nasal Cannula Oxygen Flow Rate 4 03/31/25 23:38 04/01/25 00:00 04/01/25 02:00 Temperature 97.7 F Pulse Rate 105 H 107 H 109 H Respiratory Rate 18 Blood Pressure 140/95 H Pulse Oximetry 95 Oxygen Delivery Oxygen Flow Rate 04/01/25 02:49 04/01/25 02:55 04/01/25 03:35 Temperature Pulse Rate 112 H Respiratory Rate 20 Blood Pressure Pulse Oximetry 95 95 Oxygen Delivery Nasal Cannula Venturi Mask Oxygen Flow Rate 4 6 04/01/25 03:54 04/01/25 04:00 04/01/25 06:00 Temperature 97.7 F Pulse Rate 113 H 126 H 107 H Respiratory Rate 18 Blood Pressure 143/84 H Pulse Oximetry 96 Oxygen Delivery Oxygen Flow Rate 04/01/25 07:35 05/07/25 08:31 04/01/25 08:31 Temperature 99.0 F Pulse Rate 105 H 102 H Respiratory Rate 22 H 20 Blood Pressure 144/82 H Pulse Oximetry 97 98 Oxygen Delivery Nasal Cannula Oxygen Flow Rate 4 04/01/25 08:39 Temperature Pulse Rate 100 Respiratory Rate 20 Blood Pressure Pulse Oximetry Oxygen Delivery Oxygen Flow Rate Intake/Output Intake/Output: Intake & Output 03/29/25 03/30/25 03/31/25 04/01/25 23:59 23:59 23:59 23:59 Intake Total 3439.7 3033.6 1294.3 Output Total 1550 4700 2650 0 Balance 1889.7 -1666.4 -1355.7 0 Meds/Results Medications: Active Medications Generic Name Dose Route Start Last Admin Trade Name Freq PRN Reason Stop Dose Admin Acetaminophen 650 mg 03/26/25 20:27 03/29/25 20:02 Acetaminophen Elixir 325 Mg/10.15 Ml Udc FEED TUBE 650 mg Q6H PRN Administration Mild Pain (1-3) or Fever Albuterol/Ipratropium 3 ml 03/28/25 08:15 04/01/25 08:34 Ipratropium 0.5 Mg/Albuterol Sulfate 2.5 Mg Ampul.Neb 3 Ml INHALATION Not Given Q6HRT SHANE Enoxaparin Sodium 40 mg 03/27/25 09:00 03/31/25 08:37 Enoxaparin 40 Mg/0.4 Ml Syringe SUB-Q 40 mg DAILY SHANE Administration Cefepime HCl 2 gm in 50 mls @ 100 mls/hr 03/27/25 05:00 04/01/25 04:38 Maxipime 2 Gm/Ns 50 Ml IVPB 04/02/25 21:29 100 mls/hr Q8H SHANE Administration Pantoprazole Sodium 40 mg 03/27/25 09:00 03/31/25 08:37 Pantoprazole Sodium Iv 40 Mg Vial IV PUSH 40 mg QAM SHANE Administration Radiology Results: ITS Impressions Abdomen X-Ray 03/26/25 05:30 Impression: NG tube in satisfactory position. Head CT 03/27/25 10:57 Impression: No acute abnormality. No change from prior exam. 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 Overlying postoperative change of the frontal bones. Chest CTA 03/27/25 10:58 Impression: No evidence of pulmonary embolus, aortic dissection, or aortic aneurysm. Extensive bilateral lower lobe airspace consolidation is suspicious for bilateral pneumonia versus possibly atelectasis, left worse than right. Chest X-Ray 03/31/25 06:19 Impression: Left basilar pulmonary edema/atelectasis versus pneumonia. Support tubes, as above. Quality VTE Prophylaxis VTE prophylaxis: pharmacologic ordered Hospitalist MIPS Advance Care Plan I have confirmed that the patient's Advanced Care Plan is present, code status is documented, or surrogate decision maker is listed in patient medical record.: Yes Medication Reconciliation I have utilized all available resources to obtain, update and review the patients current medications (includes all prescriptions, OTC, herbals, cannabis, and nutritional supplements).: Yes
[2025-04-01] MEDS: ENOXAPARIN 40 MG/0.4 ML SYRINGE SUB-Q (09:40)
[2025-04-01] MEDS: PANTOPRAZOLE SODIUM IV 40 MG VIAL IV PUSH (09:40)
[2025-04-01 10:07] LABS: Hematocrit 39.4 % (42.0-52.0); Hemoglobin 12.8 g/dL (14.0-18.0); Mean Corpuscular HGB Conc 32.5 g/dl (32-36); Mean Corpuscular Hemoglobin 27.8 pg (26-34); Mean Corpuscular Volume 85.7 fl (80-100); Mean Platelet Volume 9.9 fl (7.4-10.4); Platelet Count Result 279 k/mm3 (150-375); Red Cell Distribution Width 12.5 % (11.5-14.5)
[2025-04-01 10:20] LABS: Alanine Aminotransferase 131 U/L (6-50); Albumin Level 3.8 g/dL (3.5-5.1); Alkaline Phosphatase 133 U/L (38-126); Anion Gap 10 mmol/L (4-12); Aspartate Amino Transferase 127 U/L (17-59); Bilirubin,Total 0.7 mg/dL (0.2-1.3); Blood Urea Nitrogen 22 mg/dL (9-20); Calcium 9.3 mg/dL (8.4-10.2); Carbon Dioxide 28 mmol/L (22-30); Chloride 104 mmol/L (98-107); Estimated CRCL calculation 117 ml/min; Estimated Glomerular Filt Rate > 60; Glucose 122 mg/dL (65-110); Potassium 3.4 mmol/L (3.4-5.0); Sodium 142 mmol/L (137-145)
[2025-04-01] MEDS: AMOXICILLIN/CLAVULANATE K 875-125 MG TAB 1 TABLET PO ×2 (12:35→20:48)
[2025-04-01] MEDS: ACETAMINOPHEN ELIXIR 325 MG/10.15 ML UDC 650 MG FEED TUBE (21:04)
[2025-04-02] VITALS (25 sets, daily range): BP systolic 121–154; BP diastolic 55–95; PULSE 94–111; RESP 16–24; TEMP 36.4–37.6; O2SAT 88–98
[2025-04-02] MEDS: IPRATROPIUM 0.5 MG/ALBUTEROL SULFATE 2.5 MG AMPUL.NEB 3 ML INHALATION ×3 (01:47→21:25)
[2025-04-02 04:33] LABS: Add Urine Microscopic? YES; Appearance Urine Cloudy (Clear); Bacteria Urine None Seen /hpf; Bilirubin Urine Negative (Negative); Blood Urine 2+ (Negative); Color Urine Dark Yellow (Yellow); Glucose Urine UA Negative (Negative); Ketones Urine Trace mg/dL (Negative); Leukocyte Esterase Ur Negative LEU/UL (Negative); Nitrate Urine Negative (Negative); Non Pathogenic Casts 0-2; Protein Urine 3+ mg/dL (Negative); RBC Urine >100 /hpf (0-2); Specific Grav Ur 1.038 (1.001-1.035); Squamous Epithelial Cell Urine None Seen /hpf (Few); WBC Urine 0-5 /hpf (0-3); pH Urine 6.5 (5.0-9.0)
[2025-04-02 08:24] LABS: Hematocrit 41.2 % (42.0-52.0); Hemoglobin 13.2 g/dL (14.0-18.0); Mean Corpuscular Hemoglobin 27.6 pg (26-34); Mean Corpuscular Volume 86.2 fl (80-100); Mean Platelet Volume 9.9 fl (7.4-10.4); Platelet Count Result 325 k/mm3 (150-375); Red Blood Count 4.78 M/mm3 (4.6-6.20); Red Cell Distribution Width 12.6 % (11.5-14.5); White Blood Count 10.9 K/mm3 (4.5-10.0)
[2025-04-02 08:35] LABS: Alanine Aminotransferase 131 U/L (6-50); Albumin Level 3.8 g/dL (3.5-5.1); Alkaline Phosphatase 126 U/L (38-126); Anion Gap 8 mmol/L (4-12); Aspartate Amino Transferase 81 U/L (17-59); Bilirubin,Total 0.7 mg/dL (0.2-1.3); Blood Urea Nitrogen 31 mg/dL (9-20); Calcium 9.2 mg/dL (8.4-10.2); Carbon Dioxide 29 mmol/L (22-30); Chloride 107 mmol/L (98-107); Estimated CRCL calculation 113 ml/min; Estimated Glomerular Filt Rate > 60; Glucose 116 mg/dL (65-110); Potassium 3.5 mmol/L (3.4-5.0); Sodium 144 mmol/L (137-145)
[2025-04-02] MEDS: ENOXAPARIN 40 MG/0.4 ML SYRINGE SUB-Q (08:58)
[2025-04-02] MEDS: PANTOPRAZOLE SODIUM IV 40 MG VIAL IV PUSH (08:59)
--- NOTE | 2025-04-02 09:29 | PCSTNOTE ---
Please refer to the Bedside Swallow Evaluation in the EMR. Please note, silent aspiration cannot be ruled out at bedside.
[2025-04-02 12:34] LABS: Amphetamine Screen Urine Positive (Negative); Barbiturate Screen Urine Negative (Negative); Benzodiazepines Screen Urine Positive (Negative); Cannabinoid Screen Urine Negative (Negative); Cocaine Screen Urine Negative (Negative); Methadone Screen Urine Negative (Negative); Opiate Screen Urine Negative (Negative); Phencyclidine Screen Urine Negative (Negative)
--- NOTE | 2025-04-02 14:02 | PCSTNOTE ---
Please refer to the Modified Barium Swallow Evaluation in the EMR. The above 44 year old male was admitted to due to possible overdose. Patient was intubated in ICU from 03/26-03/31. Upon extubation, nursing reported concern with his ability to initiate a swallow and swallow without aspiration. Due to overt signs of aspiration exhibited during the bedside swallow evaluation, an MBS was completed. Vocal quality was noted to be very hoarse. Confusion also exhibited. The pt was seated for a lateral view and presented with 5 ml of thin liquids via a spoon, pudding consistency barium via a spoon, and 5 ml moderately thick liquid via a spoon. The oral stages were WFL. During the pharyngeal stage the following was exhibited: reduced laryngeal elevation as evidenced by laryngeal penetration during the swallow of thin and thick liquids; reduced laryngeal closure as evidenced by aspiration occurring during the swallow of the thick liquids, and reduced tongue base retraction as evidenced by vallecular residue which was severe with the pudding consistency. Impression: Severe dysphagia due to copious aspiration of thin & thick liquids, and the severe residual of the pudding. Recommendations: NPO, begin nonoral means of nutrition via NG/Dobhoff tube feedings; start dysphagia therapy, and re-evaluate with repeat MBS in 3-4 days. Thank you for this referral.
--- NOTE | 2025-04-02 14:36 | PM.IMPN ---
Progress Note: A&P Assessment and Plan (1) Overdose of sympathomimetic agent: Code(s): T44.901A - Poisoning by unspecified drugs primarily affecting the autonomic nervous system, accidental (unintentional), initial encounter Status: Acute Assessment and Plan: Patient presented after overdose on fentanyl/amphetamine -patient on sympathomimetic symptoms upon arrival -sedated with Versed and propofol -03/26: was intubated due to being combative and agitated, according the notes required 8 staff members to hold him down -03/27: The patient's girlfriend stated that that he is a IV drug user -0 7: Currently on IMU and extubated yesterday -04/02: Evidence of a raspy voice. As per patient's girlfriend previously had a normal ngo and possibly due to recent intubation. (2) On mechanically assisted ventilation: Code(s): Z99.11 - Dependence on respirator [ventilator] status Status: Acute Assessment and Plan: Patient was agitated, combative in the ER -intubated with etomidate and rocuronium -currently on CMV mode of ventilation, peep of 5, 30% FiO2 -chest x-ray and ABGs reviewed -sedation was decreased. 5/5 PSV SBT done for more than 30 minutes. RSBI, ABGI and Vitals acceptable. Patient agitated but following commands. Will extubate. NPO for now. -Extubated 03/27: CTA chest No evidence of PE, aortic dissection item aneurysm. Extensive bilateral lower lobe airspace consolidation, suspicious for bilateral pneumonia versus atelectasis, left worse than right Patient was on Cefepime, Vancomycin, and Metronidazole for suspected aspiration pneumonia (started 03/27) -status post cefepime -started on ceftriaxone and azithromycin (3) Amphetamine abuse: Code(s): F15.10 - Other stimulant abuse, uncomplicated Status: Acute Assessment and Plan: Continue benzodiazepine -counseled on cessation of amphetamine (4) Acute kidney injury: Code(s): N17.9 - Acute kidney failure, unspecified Status: Acute Assessment and Plan: RESOLVED Likely related to sympathomimetic symptoms, hypovolemia -creatinine improved and WNL -continue to monitor urine output, renal function and electrolytes (5) Sepsis: Code(s): A41.9 - Sepsis, unspecified organism Status: Acute Assessment and Plan: Fevers, thick sputum, ventilator dysynchrony Since he is a IV drug user blood cultures were obtained on 03/27: which have been negative so far 03/27: Sputum Cx GROUP G STREP Patient s/p cefepime, vancomycin and Flagyl (03/27) -given these growing group G strep in his sputum, discontinue vancomycin , cefepime and Flagyl -started on ceftriaxone and Zithromax 03/27: CTA chest Impression: No evidence of pulmonary embolus, aortic dissection, or aortic aneurysm. Extensive bilateral lower lobe airspace consolidation is suspicious for bilateral pneumonia versus possibly atelectasis, left worse than right. 03/27: CT brain No acute abnormality. No change from prior exam. 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 Overlying postoperative change of the frontal bones. (6) CVA (cerebral vascular accident): Code(s): I63.9 - Cerebral infarction, unspecified Status: Acute Assessment and Plan: Past medical history of TBI 0 5/0 8 CTA head and neck shows no significant finding Neurology consulted Speech therapy following Failed MBS on 04/02 Will repeat in 2 days No focal neurological deficits Subjective Date/time seen: 04/02/25 14:36 Interval history: Patient had episode of choking yesterday night. Patient underwent MBS which he failed. Had a long discussion with his girlfriend. As per his girlfriend patient has a history of IV drug abuse including meth and fentanyl. Patient had a TBI 2018 and underwent craniotomy [facility]. Patient underwent head and neck CTA to rule out stroke which shows no significant abnormalities. Patient will undergo speech therapy and we will repeat MBS in a day or 2. Patient will be started on ceftriaxone and azithromycin due to possible left lower lobe pneumonia. Review of Systems Review of Systems: Unable to do ROS as patient was intubated and sedated ROS unobtainable: Yes unobtainable due to endotracheal tube and unobtainable due to mental status Exam Narrative: General: Well-built gentleman in no acute distress HEENT:? Pupils equal and reactive, sclera is clear, ETT in place Neck:? Supple Respiratory:? Clear to auscultation bilaterally, no wheezing, adequate air entry Cardiac:? S1-S2 normal, regular rate and rhythm Abdomen:? Soft, nontender nondistended, hypoactive bowel sounds Extremities:? No edema, palpable pedal pulses Neuro:? Patient intubated, sedated with Versed and propofol, on loading sedation he follows simple commands with all 4 extremities Skin:? Warm and dry, no lesions noted Psych:? Unable to assess at this time Objective Data Vital Signs Vital Signs: Vital Signs - 24 hr 04/01/25 14:46 04/01/25 14:51 04/01/25 15:44 Temperature 98.2 F Pulse Rate 106 H 103 H 105 H Respiratory Rate 24 H 24 H 24 H Blood Pressure 144/94 H Pulse Oximetry 93 Oxygen Delivery Oxygen Flow Rate 04/01/25 16:00 04/01/25 16:00 04/01/25 18:00 Temperature Pulse Rate 105 H 103 H 111 H Respiratory Rate 24 H Blood Pressure Pulse Oximetry 93 Oxygen Delivery Nasal Cannula Oxygen Flow Rate 2 04/01/25 19:30 04/01/25 20:00 04/01/25 20:32 Temperature 98.6 F Pulse Rate 101 H 89 101 H Respiratory Rate 18 20 Blood Pressure 151/95 H Pulse Oximetry 96 Oxygen Delivery Oxygen Flow Rate 04/01/25 20:41 04/01/25 20:42 04/01/25 20:45 Temperature Pulse Rate 99 Respiratory Rate 20 Blood Pressure Pulse Oximetry 97 95 Oxygen Delivery Nasal Cannula Nasal Cannula Oxygen Flow Rate 2 2 04/01/25 22:00 04/01/25 23:41 04/02/25 00:00 Temperature 98.0 F Pulse Rate 106 H 102 H Respiratory Rate 18 Blood Pressure 140/92 H Pulse Oximetry 93 95 Oxygen Delivery Nasal Cannula Oxygen Flow Rate 2 04/02/25 00:00 04/02/25 01:48 04/02/25 02:00 Temperature Pulse Rate 103 H 97 104 H Respiratory Rate 20 Blood Pressure Pulse Oximetry Oxygen Delivery Oxygen Flow Rate 04/02/25 04:00 04/02/25 04:00 04/02/25 04:00 Temperature 98.6 F Pulse Rate 102 H 107 H Respiratory Rate 18 Blood Pressure 143/55 H Pulse Oximetry 97 95 Oxygen Delivery Nasal Cannula Oxygen Flow Rate 2 04/02/25 05:45 04/02/25 06:00 04/02/25 06:20 Temperature Pulse Rate 105 H Respiratory Rate Blood Pressure Pulse Oximetry 88 L 96 Oxygen Delivery Nasal Cannula Nasal Cannula Oxygen Flow Rate 4 3 04/02/25 06:49 04/02/25 07:59 04/02/25 08:00 Temperature 97.5 F L Pulse Rate 104 H 104 H Respiratory Rate 20 20 Blood Pressure 154/95 H Pulse Oximetry 96 95 95 Oxygen Delivery Nasal Cannula Nasal Cannula Oxygen Flow Rate 2 2 04/02/25 08:00 04/02/25 08:01 04/02/25 08:01 Temperature Pulse Rate 101 H 104 H Respiratory Rate 20 Blood Pressure Pulse Oximetry 98 Oxygen Delivery Nasal Cannula Oxygen Flow Rate 2 04/02/25 08:11 04/02/25 10:00 04/02/25 11:37 Temperature 99.7 F H Pulse Rate 102 H 111 H 102 H Respiratory Rate 18 24 H Blood Pressure 151/94 H Pulse Oximetry 97 Oxygen Delivery Oxygen Flow Rate 04/02/25 12:00 04/02/25 12:00 Temperature Pulse Rate 102 H 102 H Respiratory Rate 24 H Blood Pressure Pulse Oximetry 97 Oxygen Delivery Nasal Cannula Oxygen Flow Rate 1 Intake/Output Intake/Output: Intake & Output 03/30/25 03/31/25 04/01/25 04/02/25 23:59 23:59 23:59 23:59 Intake Total 3033.6 1294.3 618 100 Output Total 4700 2650 725 600 Balance -1666.4 -1355.7 -107 -500 Meds/Results Medications: Active Medications Generic Name Dose Route Start Last Admin Trade Name Freq PRN Reason Stop Dose Admin Acetaminophen 650 mg 03/26/25 20:27 04/01/25 21:04 Acetaminophen Elixir 325 Mg/10.15 Ml Udc FEED TUBE 650 mg Q6H PRN Administration Mild Pain (1-3) or Fever Albuterol/Ipratropium 3 ml 03/28/25 08:15 04/02/25 07:59 Ipratropium 0.5 Mg/Albuterol Sulfate 2.5 Mg Ampul.Neb 3 Ml INHALATION 3 ml Q6HRT SHANE Administration Amoxicillin/Clavulanate Potassium 1 tablet 04/01/25 12:00 04/01/25 20:48 Amoxicillin/Clavulanate K 875-125 Mg Tab PO 04/02/25 21:01 1 tablet Q12HR SHANE Administration Enoxaparin Sodium 40 mg 03/27/25 09:00 04/02/25 08:58 Enoxaparin 40 Mg/0.4 Ml Syringe SUB-Q 40 mg DAILY SHANE Administration Ondansetron HCl 4 mg 04/01/25 12:02 Ondansetron Inj 4 Mg/2 Ml Vial IV PUSH Q4H PRN Nausea And Vomiting Pantoprazole Sodium 40 mg 03/27/25 09:00 04/02/25 08:59 Pantoprazole Sodium Iv 40 Mg Vial IV PUSH 40 mg QAM SHANE Administration Radiology Results: ITS Impressions Abdomen X-Ray 03/26/25 05:30 Impression: NG tube in satisfactory position. Head CT 03/27/25 10:57 Impression: No acute abnormality. No change from prior exam. 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 Overlying postoperative change of the frontal bones. Chest CTA 03/27/25 10:58 Impression: No evidence of pulmonary embolus, aortic dissection, or aortic aneurysm. Extensive bilateral lower lobe airspace consolidation is suspicious for bilateral pneumonia versus possibly atelectasis, left worse than right. Chest X-Ray 03/31/25 06:19 Impression: Left basilar pulmonary edema/atelectasis versus pneumonia. Support tubes, as above. Modified Barium Swallow 04/02/25 10:11 IMPRESSION: Pharyngeal dysphagia with laryngeal penetration and aspiration. Please correlate with speech pathologist findings and specific feeding recommendations. Head/Neck CTA 04/02/25 13:29 IMPRESSION: 1. Normal CTA head and neck. Percent stenosis per NASCET criteria is 0%. 2. Left lower lobe superior segment pneumonia. Further evaluation advised. 3. Left frontal encephalomalacia with postoperative changes in the frontal bones. Labs Labs: Laboratory Results - last 24 hr 04/02/25 04/02/25 04/02/25 04:18 08:04 12:00 WBC 10.9 H RBC 4.78 Hgb 13.2 L Hct 41.2 L MCV 86.2 MCH 27.6 MCHC 32.0 RDW 12.6 Plt Count 325 MPV 9.9 Sodium 144 Potassium 3.5 Chloride 107 Carbon Dioxide 29 Anion Gap 8 BUN 31 H Creatinine 0.82 Estim Creat Clear Calc 113 Estimated GFR > 60 Glucose 116 H Calcium 9.2 Total Bilirubin 0.7 AST 81 H ALT 131 H Alkaline Phosphatase 126 Total Protein 8.0 Albumin 3.8 Urine Color Dark yellow Urine Appearance Cloudy H Urine pH 6.5 Ur Specific [place] 1.038 H Urine Protein 3+ H Urine Glucose (UA) Negative Urine Ketones Trace H Ur Blood (Man) 2+ H Urine Nitrate Negative Urine Bilirubin Negative Urine Urobilinogen 1.0 Leukocyte Esterase Rfl Negative Urine RBC >100 H Urine WBC 0-5 Ur Squamous Epith Cells None seen Urine Bacteria None seen Urine Casts 0-2 Urine Opiates Screen Negative Urine Methadone Screen Negative Ur Barbiturates Screen Negative Ur Phencyclidine Scrn Negative Ur Amphetamine Screen Positive A U Benzodiazepines Scrn Positive A Urine Cocaine Screen Negative U Cannabinoids Screen Negative Quality VTE Prophylaxis VTE prophylaxis: pharmacologic ordered Hospitalist MIPS Advance Care Plan I have confirmed that the patient's Advanced Care Plan is present, code status is documented, or surrogate decision maker is listed in patient medical record.: Yes Medication Reconciliation I have utilized all available resources to obtain, update and review the patients current medications (includes all prescriptions, OTC, herbals, cannabis, and nutritional supplements).: Yes
[2025-04-02] MEDS: cefTRIAXone 2 GM/NS 100 ML 2 GM/100 ML BAG IVPB (15:57)
[2025-04-03] VITALS (27 sets, daily range): BP systolic 106–136; BP diastolic 57–91; PULSE 63–99; RESP 17–20; TEMP 36.4–37.2; O2SAT 93–98; BMI 23.1
--- NOTE | 2025-04-03 | ECHO_ITS ---
Patient Info Name: Ephraim Reilly Age: 44 years : 1980 Gender: Male Ht: 73 in Wt: 174 lbs BSA: 2.02 m2 HR: 85 bpm BP: 109 / 91 mmHg Technical Quality: Good Exam Date: 04/03/2025 2:26 PM Exam Location: Echo Lab Patient Status: Inpatient Admit Date: 03/26/2025 Staff Ordering Physician: Marcin Raza MD Propagation Manager: Deirdre Hayward RDCS Attending Provider: Cedric Ennis MD Exam Type: CA echo doppler color flow Study Info Indications - CHF Complete two-dimensional, color flow and Doppler transthoracic echocardiogram is performed. Summary 1. Complete two-dimensional, color flow and Doppler transthoracic echocardiogram is performed. 2. Left ventricular systolic function is normal, estimated at 60-65%. 3. There is mildly increased left ventricular wall thickness. 4. The left ventricular diastolic function is normal. 5. There is trivial pericardial effusion. 6. The aortic root size at the sinus of Valsalva is mildly dilated. measures 4 cm. 7. The prox ascending aorta size is mildly dilated. measures 4.1 cm. Recommendations * cm. Left Ventricle Left ventricular chamber dimension is normal. Left ventricular systolic function is normal, estimated at 60-65%. There is mildly increased left ventricular wall thickness. Left ventricular septal wall motion is normal. The left ventricular diastolic function is normal. Right Ventricle Right ventricular chamber dimension is normal. Right ventricular systolic function is normal. Left Atria Left atrial chamber dimension is normal. Right Atria Right atrial chamber dimension is normal. Aortic Valve The aortic valve is trileaflet. There is no aortic valve sclerosis. There is no aortic valve stenosis. There is no aortic valve regurgitation. Pulmonic Valve The pulmonic valve is normal. There is no pulmonic valve stenosis. There is no pulmonic regurgitation. Mitral Valve The mitral valve has normal leaflets. There is no mitral valve stenosis. There is no mitral valve regurgitation. Tricuspid Valve The tricuspid valve leaflets are normal. There is no significant tricuspid valve stenosis. There is no tricuspid valve regurgitation. Pericardium/Pleural The pericardium appears normal. There is trivial pericardial effusion. Inferior Vena Cava Normal inferior vena cava with >50% collapse upon inspiration consistent with normal right atrial pressure, Empty. Aorta The aortic root size at the sinus of Valsalva is mildly dilated. measures 4 cm. The prox ascending aorta size is mildly dilated. measures 4.1 cm. Left Ventricular Outflow Tract Name Value Normal LVOT 2D LVOT Diameter 2.3 cm LVOT Doppler LVOT Peak Gradient 5 mmHg LVOT Mean Gradient 3 mmHg LVOT VTI 20 cm LVOT VTI/AV VTI Ratio 0.8 LVOT Stroke Volume 87 ml LVOT CO 22.7 l/min LVOT CI 11.3 l/min/m2 Pulmonic Valve Name Value Normal PV Doppler PV Peak Gradient 4 mmHg Mitral Valve Name Value Normal MV Doppler MV Decel [place] 315 cm/s2 MV PHT 53 ms MV Area (PHT) 4.2 cm2 4.0-5.0 MV Diastolic Function MV E Peak Velocity 58 cm/s MV A Peak Velocity 64 cm/s MV E/A 0.9 MV Decel Time 183 ms MV Annular TDI MV E/e' (Septal) 7.5 <=8.0 MV E/e' (Lateral) 4.2 <=8.0 MV E/e' (Average) 5.8 Aorta Name Value Normal Ascending Aorta Ao Root Diameter (MM) 4.4 cm Ao Root Diam Index (MM) 2.2 cm/m2 Aortic Valve Name Value Normal AV Doppler AV Peak Velocity 146 cm/s AV Peak Gradient 9 mmHg AV Mean Gradient 6 mmHg AV VTI 25 cm AV Area (Cont Eq VTI) 3.5 cm2 >=3.0 AV Area (Cont Eq [place]) 3.2 cm2 AV Regurgitation 2D LVOT Area 4.2 cm2 Ventricles Name Value Normal LV Dimensions 2D/MM IVS Diastolic Thickness (2D) 1.2 cm 0.6-1.0 LVID Diastole (2D) 4.5 cm 4.2-5.8 LVIW Diastolic Thickness (2D) 1.0 cm 0.6-1.0 LVID Systole (2D) 3.2 cm 2.5-4.0 LVOT Diameter 2.3 cm LV Mass (2D Cubed) 173.85 g 88.00-224.00 LV Mass Index (2D Cubed) 86 g/m2 49-115 Relative Wall Thickness (2D) 0.44 LV Fractional Shortening/Ejection Fraction 2D/MM LV Fractional Shortening (2D) 30 % 25-43 LV EF (2D Teicholz) 58 % 52-72 LV Diastolic Volume (4C MOD) 143 ml LV EF (4C MOD) 68 % LV Diastolic Volume (2C MOD) 139 ml LV EF (2C MOD) 66 % LV Diastolic Volume (BP MOD) 142 ml 62-150 LV Diastolic Volume Index (BP MOD) 70 ml/m2 34-74 LV Systolic Volume (BP MOD) 48 ml 21-61 LV Systolic Volume Index (BP MOD) 24 ml/m2 11-31 LV EF (BP MOD) 66 % 52-72 LV Diastolic Length (4C) 9.5 cm LV Systolic Length (4C) 7.7 cm LV Stroke Volume (4C MOD) 97 ml RV Dimensions 2D/MM RVID Diastole (2D) 4.4 cm 2.5-3.5 Atria Name Value Normal LA Dimensions LA Volume (4C A-L) 44 ml LA Volume (BP A-L) 47 ml RA Dimensions RA Area (4C) 17.0 cm2 <=18.0 Report Signatures
[2025-04-03] MEDS: IPRATROPIUM 0.5 MG/ALBUTEROL SULFATE 2.5 MG AMPUL.NEB 3 ML INHALATION ×3 (01:50→13:33)
[2025-04-03] MEDS: ENOXAPARIN 40 MG/0.4 ML SYRINGE SUB-Q (09:34)
[2025-04-03] MEDS: PANTOPRAZOLE SODIUM IV 40 MG VIAL IV PUSH (09:34)
[2025-04-03 10:21] LABS: Hematocrit 41.6 % (42.0-52.0); Hemoglobin 13.1 g/dL (14.0-18.0); Mean Corpuscular HGB Conc 31.5 g/dl (32-36); Mean Corpuscular Hemoglobin 27.5 pg (26-34); Mean Corpuscular Volume 87.4 fl (80-100); Mean Platelet Volume 9.7 fl (7.4-10.4); Platelet Count Result 356 k/mm3 (150-375); Red Blood Count 4.76 M/mm3 (4.6-6.20); Red Cell Distribution Width 12.8 % (11.5-14.5); White Blood Count 7.8 K/mm3 (4.5-10.0)
[2025-04-03 10:48] LABS: Alanine Aminotransferase 136 U/L (6-50); Albumin Level 3.8 g/dL (3.5-5.1); Alkaline Phosphatase 125 U/L (38-126); Anion Gap 11 mmol/L (4-12); Aspartate Amino Transferase 96 U/L (17-59); Bilirubin,Total 0.6 mg/dL (0.2-1.3); Blood Urea Nitrogen 38 mg/dL (9-20); Calcium 9.3 mg/dL (8.4-10.2); Carbon Dioxide 26 mmol/L (22-30); Chloride 109 mmol/L (98-107); Estimated CRCL calculation 97 ml/min; Estimated Glomerular Filt Rate > 60; Glucose 98 mg/dL (65-110); Potassium 3.7 mmol/L (3.4-5.0); Sodium 146 mmol/L (137-145)
[2025-04-03] MEDS: DEXTROSE 5% 1,000 ML 1,000 ML 100 ML IV CONT ×2 (11:04→21:02)
[2025-04-03 11:52] LABS: Glucose Point of Care 85 mg/dl (65-105)
--- NOTE | 2025-04-03 12:37 | PCDIET ---
If tube feeding is needed, recommend Jevity 1.5 @ goal rate 60 ml/h to provide 1980 kcal, 84 g protein, 1003 ml free water. Flush 150 ml q 4 hours for total free water 1900 ml/d
--- NOTE | 2025-04-03 15:51 | P.PNIM_ITS ---
Progress Note: A&P Assessment and Plan (1) Overdose of sympathomimetic agent: Code(s): T44.901A - Poisoning by unspecified drugs primarily affecting the autonomic nervous system, accidental (unintentional), initial encounter Status: Acute Assessment and Plan: Patient presented after overdose on fentanyl/amphetamine -patient on sympathomimetic symptoms upon arrival -sedated with Versed and propofol -03/26: was intubated due to being combative and agitated, according the notes required 8 staff members to hold him down -03/27: The patient's girlfriend stated that that he is a IV drug user -0 7: Currently on IMU and extubated yesterday -04/02: Evidence of a raspy voice. As per patient's girlfriend previously had a normal ngo and possibly due to recent intubation. (2) On mechanically assisted ventilation: Code(s): Z99.11 - Dependence on respirator [ventilator] status Status: Acute Assessment and Plan: Patient was agitated, combative in the ER -intubated with etomidate and rocuronium -currently on CMV mode of ventilation, peep of 5, 30% FiO2 -chest x-ray and ABGs reviewed -sedation was decreased. 5/5 PSV SBT done for more than 30 minutes. RSBI, ABGI and Vitals acceptable. Patient agitated but following commands. Will extubate. NPO for now. -Extubated 03/27: CTA chest No evidence of PE, aortic dissection item aneurysm. Extensive bilateral lower lobe airspace consolidation, suspicious for bilateral pneumonia versus atelectasis, left worse than right Patient was on Cefepime, Vancomycin, and Metronidazole for suspected aspiration pneumonia (started 03/27) -status post cefepime -started on ceftriaxone and azithromycin (3) Amphetamine abuse: Code(s): F15.10 - Other stimulant abuse, uncomplicated Status: Acute Assessment and Plan: Continue benzodiazepine -counseled on cessation of amphetamine (4) Acute kidney injury: Code(s): N17.9 - Acute kidney failure, unspecified Status: Acute Assessment and Plan: RESOLVED Likely related to sympathomimetic symptoms, hypovolemia -creatinine improved and WNL -continue to monitor urine output, renal function and electrolytes (5) Sepsis: Code(s): A41.9 - Sepsis, unspecified organism Status: Acute Assessment and Plan: Fevers, thick sputum, ventilator dysynchrony Since he is a IV drug user blood cultures were obtained on 03/27: which have been negative so far 03/27: Sputum Cx GROUP G STREP Patient s/p cefepime, vancomycin and Flagyl (03/27) -given these growing group G strep in his sputum, discontinue vancomycin , cefepime and Flagyl -started on ceftriaxone and Zithromax 03/27: CTA chest Impression: No evidence of pulmonary embolus, aortic dissection, or aortic aneurysm. Extensive bilateral lower lobe airspace consolidation is suspicious for bilateral pneumonia versus possibly atelectasis, left worse than right. 03/27: CT brain No acute abnormality. No change from prior exam. 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 Overlying postoperative change of the frontal bones. (6) CVA (cerebral vascular accident): Code(s): I63.9 - Cerebral infarction, unspecified Status: Acute Assessment and Plan: Past medical history of TBI 0 5/0 8 CTA head and neck shows no significant finding Neurology consulted Speech therapy following Failed MBS on 04/02 Will repeat in 2 days No focal neurological deficits (7) Hoarseness: Code(s): R49.0 - Dysphonia Status: Acute Assessment and Plan: Voice rest Will consider steroids after discussing with ENT Consulted ENT Subjective Date/time seen: 04/03/25 15:51 Interval history: Patient UDS positive for Amphetamines and BDZ. Repeat MBS tomorrow. Called and left in regards to hoarseness of voice. Review of Systems Review of Systems: Unable to do ROS as patient was intubated and sedated ROS unobtainable: Yes unobtainable due to endotracheal tube and unobtainable due to mental status Exam Narrative: General: Well-built gentleman in no acute distress HEENT:? Pupils equal and reactive, sclera is clear, ETT in place Neck:? Supple Respiratory:? Clear to auscultation bilaterally, no wheezing, adequate air entry Cardiac:? S1-S2 normal, regular rate and rhythm Abdomen:? Soft, nontender nondistended, hypoactive bowel sounds Extremities:? No edema, palpable pedal pulses Neuro:? Patient intubated, sedated with Versed and propofol, on loading sedation he follows simple commands with all 4 extremities Skin:? Warm and dry, no lesions noted Psych:? Unable to assess at this time Objective Data Vital Signs Vital Signs: Vital Signs - 24 hr 04/02/25 16:00 04/02/25 16:00 04/02/25 18:00 Temperature Pulse Rate 100 94 102 H Respiratory Rate 16 Blood Pressure Pulse Oximetry 95 Oxygen Delivery Room Air Oxygen Flow Rate 04/02/25 19:48 04/02/25 20:00 04/02/25 20:00 Temperature 98.7 F Pulse Rate 105 H 103 H Respiratory Rate 18 Blood Pressure 131/85 Pulse Oximetry 94 Oxygen Delivery Room Air Oxygen Flow Rate 04/02/25 21:26 04/02/25 21:28 04/02/25 21:38 Temperature Pulse Rate 96 95 Respiratory Rate 20 20 Blood Pressure Pulse Oximetry 98 Oxygen Delivery Oxygen Flow Rate 1 04/02/25 22:00 04/02/25 23:36 04/03/25 00:00 Temperature Pulse Rate 97 99 Respiratory Rate Blood Pressure Pulse Oximetry Oxygen Delivery Room Air Oxygen Flow Rate 04/03/25 00:40 04/03/25 01:50 04/03/25 02:00 Temperature 98.8 F Pulse Rate 99 95 90 Respiratory Rate 18 20 Blood Pressure 124/84 Pulse Oximetry 98 Oxygen Delivery Oxygen Flow Rate 04/03/25 02:12 04/03/25 03:21 04/03/25 04:00 Temperature 97.6 F Pulse Rate 95 94 Respiratory Rate 20 20 Blood Pressure 106/57 L Pulse Oximetry 93 Oxygen Delivery Room Air Oxygen Flow Rate 04/03/25 04:00 04/03/25 06:00 04/03/25 08:30 Temperature 97.6 F Pulse Rate 93 93 88 Respiratory Rate 18 Blood Pressure 109/91 H Pulse Oximetry 97 Oxygen Delivery Oxygen Flow Rate 04/03/25 08:57 04/03/25 08:59 04/03/25 09:04 Temperature Pulse Rate 85 86 Respiratory Rate 18 18 Blood Pressure Pulse Oximetry 95 Oxygen Delivery Room Air Oxygen Flow Rate 04/03/25 11:24 04/03/25 11:48 04/03/25 13:33 Temperature 98.8 F Pulse Rate 91 77 Respiratory Rate 17 18 Blood Pressure 136/85 Pulse Oximetry 96 Oxygen Delivery Room Air Oxygen Flow Rate 04/03/25 13:44 Temperature Pulse Rate 90 Respiratory Rate 18 Blood Pressure Pulse Oximetry Oxygen Delivery Oxygen Flow Rate Intake/Output Intake/Output: Intake & Output 03/31/25 04/01/25 04/02/25 04/03/25 23:59 23:59 23:59 23:59 Intake Total 1294.3 618 200 Output Total 2650 725 1050 700 Balance -1355.7 -107 -850 -700 Meds/Results Medications: Active Medications Generic Name Dose Route Start Last Admin Trade Name Freq PRN Reason Stop Dose Admin Acetaminophen 650 mg 03/26/25 20:27 04/01/25 21:04 Acetaminophen Elixir 325 Mg/10.15 Ml Udc FEED TUBE 650 mg Q6H PRN Administration Mild Pain (1-3) or Fever Albuterol/Ipratropium 3 ml 03/28/25 08:15 04/03/25 13:33 Ipratropium 0.5 Mg/Albuterol Sulfate 2.5 Mg Ampul.Neb 3 Ml INHALATION 3 ml Q6HRT SHANE Administration Dextrose 12.5 gm 04/03/25 10:07 Dextrose 50% 25 Gm/50 Ml Syringe IV PUSH PRN PRN Hypoglycemia Protocol Enoxaparin Sodium 40 mg 03/27/25 09:00 04/03/25 09:34 Enoxaparin 40 Mg/0.4 Ml Syringe SUB-Q 40 mg DAILY SHANE Administration Glucagon 1 mg 04/03/25 10:07 Glucagon For Inj 1 Mg Vial IM PRN PRN Hypoglycemia Protocol Glucose 15 gm 04/03/25 10:07 Glucose Oral Gel 15 Gm Of Glucse In 37.5 Gm Tube PO PRN PRN Hypoglycemia Protocol Ceftriaxone Sodium 2 gm in 100 mls @ 200 mls/hr 04/02/25 16:00 04/02/25 16:41 Rocephin 2 Gm/Ns 100 Ml IVPB 04/08/25 16:29 Infused Q24H SHANE Infusion Dextrose 1,000 mls @ 100 mls/hr 04/03/25 10:05 04/03/25 11:04 Dextrose 5% 1,000 Ml IV CONT 100 mls/hr .Q10H SHANE Administration Dextrose 1,000 mls @ 100 mls/hr 04/03/25 10:07 Dextrose 5% 1,000 Ml IVPB PRN PRN Hypoglycemia Protocol Insulin Aspart 2 - 5 units 04/03/25 12:00 04/03/25 13:08 Insulin Aspart (*Bkc) 100 Units/Ml SUB-Q Not Given Q6HR [facility] Protocol Insulin Aspart 1 - 2 units 04/03/25 21:00 Insulin Aspart (*Bkc) 100 Units/Ml SUB-Q HS [facility] Protocol Ondansetron HCl 4 mg 04/01/25 12:02 Ondansetron Inj 4 Mg/2 Ml Vial IV PUSH Q4H PRN Nausea And Vomiting Pantoprazole Sodium 40 mg 03/27/25 09:00 04/03/25 09:34 Pantoprazole Sodium Iv 40 Mg Vial IV PUSH 40 mg QAM [facility] Administration Perflutren Lipid Microsphere 0 ml 04/03/25 10:06 Perflutren Lipid Microspheres 1.5 Ml Vial Diluted To 10 Ml Total Volume IV PUSH 04/06/25 10:06 ONCE PRN adequate visualization Protocol Radiology Results: ITS Impressions Abdomen X-Ray 03/26/25 05:30 Impression: NG tube in satisfactory position. Head CT 03/27/25 10:57 Impression: No acute abnormality. No change from prior exam. Stable chronic encephalomalacia of the anterior left frontal lobe, either pos ttraumatic or postsurgical in nature. Overlying postoperative change of the frontal bones. Chest CTA 03/27/25 10:58 Impression: No evidence of pulmonary embolus, aortic dissection, or aortic aneurysm. Extensive bilateral lower lobe airspace consolidation is suspicious for bilateral pneumonia versus possibly atelectasis, left worse than right. Chest X-Ray 03/31/25 06:19 Impression: Left basilar pulmonary edema/atelectasis versus pneumonia. Support tubes, as above. Modified Barium Swallow 04/02/25 10:11 IMPRESSION: Pharyngeal dysphagia with laryngeal penetration and aspiration. Please correlate with speech pathologist findings and specific feeding recommendations. Head/Neck CTA 04/02/25 13:29 IMPRESSION: 1. Normal CTA head and neck. Percent stenosis per NASCET criteria is 0%. 2. Left lower lobe superior segment pneumonia. Further evaluation advised. 3. Left frontal encephalomalacia with postoperative changes in the frontal bones. Labs Labs: Laboratory Results - last 24 hr 04/03/25 04/03/25 10:16 11:17 WBC 7.8 RBC 4.76 Hgb 13.1 L Hct 41.6 L MCV 87.4 MCH 27.5 MCHC 31.5 L RDW 12.8 Plt Count 356 MPV 9.7 Sodium 146 H Potassium 3.7 Chloride 109 H Carbon Dioxide 26 Anion Gap 11 BUN 38 H Creatinine 0.96 Estim Creat Clear Calc 97 Estimated GFR > 60 Glucose 98 POC Capillary Glucose 85 Calcium 9.3 Total Bilirubin 0.6 AST 96 H ALT 136 H Alkaline Phosphatase 125 Total Protein 8.0 Albumin 3.8 Quality VTE Prophylaxis VTE prophylaxis: pharmacologic ordered Hospitalist MIPS Advance Care Plan I have confirmed that the patient's Advanced Care Plan is present, code status is documented, or surrogate decision maker is listed in patient medical record.: Yes Medication Reconciliation I have utilized all available resources to obtain, update and review the patients current medications (includes all prescriptions, OTC, herbals, cannabis, and nutritional supplements).: Yes
[2025-04-03 16:27] LABS: Glucose Point of Care 85 mg/dl (65-105)
--- NOTE | 2025-04-03 17:07 | WPDCN ---
Assessment and Plan Assessment and plan (1) Dysphonia: Code(s): R49.0 - Dysphonia Status: Acute (2) Other specified injuries of vocal cord, initial encounter: Code(s): S19.83XA - Other specified injuries of vocal cord, initial encounter Status: Acute (3) Hoarseness: Code(s): R49.0 - Dysphonia Status: Acute Plan 44-year-old male 2 days post extubation with dysphonia and right-sided vocal cord injury. Based on the exam the injury could vocal cord differential diagnosis :paresis,arytenoid dislocation ,vocal cord laceration :proper evaluation will be done by stroboscopy FIBEROPTIC NASOLARYNGOSCOPY Anesthesia: Lidocaine and oxymetazoline Findings: The flexible fiberoptic laryngoscope was passed through the nasal cavity and advanced to examine the nasopharynx, oropharynx, hypopharynx and larynx. The nasopharynx was without masses, lesions or mucosal irregularities. The pharyngeal vidal were symmetric without masses, lesions or mucosal irregularities. The vallecula and base of tongue was symmetric without masses, lesions or mucosal irregularities. The epiglottis and aryepiglottic folds were without masses, lesions or mucosal irregularities. The pyriform sinuses were symmetric with mild pooled secretions but the patient was able to clear after repeated swallowing There is limited movement of the right vocal cord EBL none No complications were noted. plan: 1. Voice rest for 7 days,then Gentle voice usage until seen by band reamer machine operator 2. Steroids for 10 days. :60 mg/day prednisone for 2 day,then 40 mg per day for 2 days,then 30 mg /day for 2 days,then 20 mg /day for 2 days,then 10 mg/day for 2 days 3. PPI high dosage for at least 2 months 4. the swallow status to be evaluated by swallow study and per swallow therapist 5. Field Technical Support Consultant referral after discharge : Carlin Martinez MD Address: [address] [place] [address] 6.repeat consult as needed HPI Data of Consult Date/Time: 04/03/25 17:07 Requesting Physician: Cedric Ennis MD Primary Care Provider: NOLAN Murdock Family Provider: I was consulted for evaluation of the patient of main complaint of dysphonia. Patient reports having being intubated for 5 days extubated 2 days ago after which she started having difficulty vocalizing as well as raspy voice and inability to exhibit strong voice. Patient mentioned he has never had this condition before extubation. Consult Narrative Reason for consult: dysphonia after extubation Narrative: Ephraim Reilly is a 44 year old male Review of Systems Review of Systems: All systems reviewed & are unremarkable except as noted in HPI and below Constitutional: Constitutional: Reports as per HPI ENT: Reports as per HPI [facility] Past Medical History Medical History (Updated 04/03/25 @ 18:14 by Arleth Martinez MD) Other specified injuries of vocal cord, initial encounter Paresis of right vocal cord ACL tear Degenerative joint disease of knee Medial meniscus tear Left knee pain History of nasal polyp Chronic sinusitis Lymphadenopathy Fatigue Obesity (BMI 35.0-39.9 without comorbidity) Lymphadenitis Sleep apnea Surgical History Surgical History H/O brain surgery 2018 Family History Family History Mother Skin cancer Father Rheumatoid arthritis Grandparent Pancreatic cancer Social History Social History Smoking packs per day: 1 Smoking cigarettes per day: 20.0 Years smoked: 20 Smoking pack-years: 20.00 Smoking status: Former smoker Alcohol intake: unknown Substance use: unknown Lack of Transportation: YES Lack of Food: Never True Current Housing: I Have Housing Concerned About Future Housing: No Difficulty Paying Gas/Electric Bills: No Difficulty Paying for Meds: No Currently Unemployed: No Education: High School Diploma/GED Difficulty w/ Childcare or Family Care: No Living arrangements: alone Spiritual care concerns: No Meds Home Medications and Allergies Home Medications ?Medication ?Instructions ?Recorded ?Confirmed ?Type No Home Medications 12/01/20 03/26/25 History Allergies Allergy/AdvReac Type Severity Reaction Status Date / Time No Known Allergies Allergy Mild Verified 10/11/22 15:54 Vital Signs Vital Signs - 24 hr 04/02/25 18:00 04/02/25 19:48 04/02/25 20:00 Temperature 37.1 C Pulse Rate 102 H 105 H Respiratory Rate 18 Blood Pressure 131/85 Pulse Oximetry 94 Oxygen Delivery Room Air Oxygen Flow Rate 04/02/25 20:00 04/02/25 21:26 04/02/25 21:28 Temperature Pulse Rate 103 H 96 Respiratory Rate 20 Blood Pressure Pulse Oximetry 98 Oxygen Delivery Oxygen Flow Rate 1 04/02/25 21:38 04/02/25 22:00 04/02/25 23:36 Temperature Pulse Rate 95 97 Respiratory Rate 20 Blood Pressure Pulse Oximetry Oxygen Delivery Room Air Oxygen Flow Rate 04/03/25 00:00 04/03/25 00:40 04/03/25 01:50 Temperature 37.1 C Pulse Rate 99 99 95 Respiratory Rate 18 20 Blood Pressure 124/84 Pulse Oximetry 98 Oxygen Delivery Oxygen Flow Rate 04/03/25 02:00 04/03/25 02:12 04/03/25 03:21 Temperature 36.4 C Pulse Rate 90 95 94 Respiratory Rate 20 20 Blood Pressure 106/57 L Pulse Oximetry 93 Oxygen Delivery Oxygen Flow Rate 04/03/25 04:00 04/03/25 04:00 04/03/25 06:00 Temperature Pulse Rate 93 93 Respiratory Rate Blood Pressure Pulse Oximetry Oxygen Delivery Room Air Oxygen Flow Rate 04/03/25 08:30 04/03/25 08:57 04/03/25 08:59 Temperature 36.4 C Pulse Rate 88 85 Respiratory Rate 18 18 Blood Pressure 109/91 H Pulse Oximetry 97 95 Oxygen Delivery Room Air Oxygen Flow Rate 04/03/25 09:04 04/03/25 11:24 04/03/25 11:48 Temperature 37.1 C Pulse Rate 86 91 Respiratory Rate 18 17 Blood Pressure 136/85 Pulse Oximetry 96 Oxygen Delivery Room Air Oxygen Flow Rate 04/03/25 13:33 04/03/25 13:44 04/03/25 16:35 Temperature 36.6 C Pulse Rate 77 90 78 Respiratory Rate 18 18 18 Blood Pressure 127/77 Pulse Oximetry 95 Oxygen Delivery Oxygen Flow Rate Exam Narrative: I have examined the patient using fiberoptic laryngoscopy which revealed clear nasopharynx left-sided deviated nasal septum and right-sided vocal cord paresis with mild pooling of secretions for which the patient was able to clear the secretions after repeated swallow attempts Const: General: cooperative, healthy appearing, comfortable, no acute distress, well developed, alert, awake and Physically active Orientation/consciousness: oriented to person, oriented to place, oriented to time and patient oriented x3 HENMT: Head: normocephalic and atraumatic Ears: external ears normal and EAC's normal Face/Nose/Sinus: Normal external nose present and Normal nares present Mouth: Yes Normal oral and palatal mucosa present, Yes lip normal and Yes tongue normal Neck: Neck: normal visual inspection, full ROM and trachea midline Resp: Effort & Inspection: normal respiratory effort and able to speak in complete sentences Cardio: Rate: regular rate Neuro: General: oriented to person, oriented to place, oriented to time and patient oriented x3 Results Labs 04/03/25 10:16 04/03/25 10:16 Labs: Short CBC 04/03/25 Range/Units 10:16 WBC 7.8 (4.5-10.0) K/mm3 Hgb 13.1 L (14.0-18.0) g/dL Hct 41.6 L (42.0-52.0) % Plt Count 356 (150-375) k/mm3 BMP 04/03/25 10:16 Sodium 146 H Potassium 3.7 Chloride 109 H Carbon Dioxide 26 BUN 38 H Creatinine 0.96 Glucose 98 Calcium 9.3 Liver Function 04/03/25 Range/Units 10:16 Total Bilirubin 0.6 (0.2-1.3) mg/dL AST 96 H (17-59) U/L ALT 136 H (6-50) U/L Alkaline Phosphatase 125 (38-126) U/L Albumin 3.8 (3.5-5.1) g/dL
[2025-04-03] MEDS: cefTRIAXone 2 GM/NS 100 ML 2 GM/100 ML BAG IVPB (17:22)
[2025-04-04] VITALS (18 sets, daily range): BP systolic 106–121; BP diastolic 68–86; PULSE 61–93; RESP 18–161; TEMP 36.4–37.1; O2SAT 93–100
[2025-04-04 01:11] LABS: Glucose Point of Care 116 mg/dl (65-105)
[2025-04-04] MEDS: DEXTROSE 5% 1,000 ML 1,000 ML 100 ML IV CONT ×2 (06:38→18:41)
[2025-04-04] MEDS: IPRATROPIUM 0.5 MG/ALBUTEROL SULFATE 2.5 MG AMPUL.NEB 3 ML INHALATION ×3 (08:39→19:52)
[2025-04-04] MEDS: PANTOPRAZOLE SODIUM IV 40 MG VIAL IV PUSH (09:39)
[2025-04-04] MEDS: ENOXAPARIN 40 MG/0.4 ML SYRINGE SUB-Q (09:40)
[2025-04-04] MEDS: dexAMETHasone SOD PHOS INJ 10 MG/ML 1 ML VIAL 6 MG IV PUSH (09:40)
[2025-04-04 12:21] LABS: Glucose Point of Care 100 mg/dl (65-105)
--- NOTE | 2025-04-04 13:27 | PCSTNOTE ---
Please refer to the Modified Barium Swallow Evaluation in the EMR. This cooperative 44 year old male was admitted to [facility] due to a possible overdose. Patient was intubated in the ICU from 5-1 to 5-6. When the pt was extubated the RN reported concern regarding the pts ability to swallow safely. A BSE was completed on 04/02 demonstrating overt signs of aspiration so an MBS was ordered. MBS was completed later on 04/02 revealing the pt to have severe pharyngeal dysphagia. Pt was then made NPO and speech treatment was recommended. A repeat MBSS was completed today, 04/04, due to RN stating that pt is less confused and doing better. The pt was seated for a lateral view and presented with thin liquids, mildly thickened liquids, puree, mixed consistency, and solid consistency via spoon, straw, and hand. The oral stages were WNL. During the pharyngeal stage the following was exhibited: reduced laryngeal elevation as evidenced by laryngeal penetration during the swallow of thin and mildly thick liquids; reduced laryngeal closure as evidenced by aspiration occurring during the swallow of the thin liquids, and reduced tongue base retraction as evidenced by vallecular residue ranging from trace to mild on all consistencies. Impression: Moderate dysphagia due to one occurrence of aspiration on thin liquids and persistent penetration on mildly thick liquids, as well as consistent vallecular residue. Recommendations: IDDSI Level 7 (Regular Solids) and Level 4 (Extremely Thick Liquids); continue dysphagia therapy, and re-evaluate with repeat MBS in 3-4 days (or when deemed appropriate). Thank you for this referral.
--- NOTE | 2025-04-04 14:48 | PC.NURSE ---
Pt transferred to [id number] at 1440. Report given to ROBIN Martinez.
--- NOTE | 2025-04-04 14:55 | PC.NURSE ---
This patient, Ephraim Reilly, was received from IMU on 04/04/25 at 1450. Patient/family oriented to unit policies and routines
--- NOTE | 2025-04-04 16:14 | PM.IMPN ---
Progress Note: A&P Assessment and Plan (1) Overdose of sympathomimetic agent: Code(s): T44.901A - Poisoning by unspecified drugs primarily affecting the autonomic nervous system, accidental (unintentional), initial encounter Status: Acute Assessment and Plan: Patient presented after overdose on fentanyl/amphetamine -patient on sympathomimetic symptoms upon arrival -sedated with Versed and propofol -03/26: was intubated due to being combative and agitated, according the notes required 8 staff members to hold him down -03/27: The patient's girlfriend stated that that he is a IV drug user -0 7: Currently on IMU and extubated yesterday -04/02: Evidence of a raspy voice. As per patient's girlfriend previously had a normal ngo and possibly due to recent intubation. (2) On mechanically assisted ventilation: Code(s): Z99.11 - Dependence on respirator [ventilator] status Status: Acute Assessment and Plan: Patient was agitated, combative in the ER -intubated with etomidate and rocuronium -currently on CMV mode of ventilation, peep of 5, 30% FiO2 -chest x-ray and ABGs reviewed -sedation was decreased. 5/5 PSV SBT done for more than 30 minutes. RSBI, ABGI and Vitals acceptable. Patient agitated but following commands. Will extubate. NPO for now. -Extubated 03/27: CTA chest No evidence of PE, aortic dissection item aneurysm. Extensive bilateral lower lobe airspace consolidation, suspicious for bilateral pneumonia versus atelectasis, left worse than right Patient was on Cefepime, Vancomycin, and Metronidazole for suspected aspiration pneumonia (started 03/27) -status post cefepime -started on ceftriaxone and azithromycin (3) Amphetamine abuse: Code(s): F15.10 - Other stimulant abuse, uncomplicated Status: Acute Assessment and Plan: Continue benzodiazepine -counseled on cessation of amphetamine (4) Acute kidney injury: Code(s): N17.9 - Acute kidney failure, unspecified Status: Acute Assessment and Plan: RESOLVED Likely related to sympathomimetic symptoms, hypovolemia -creatinine improved and WNL -continue to monitor urine output, renal function and electrolytes (5) Sepsis: Code(s): A41.9 - Sepsis, unspecified organism Status: Acute Assessment and Plan: Fevers, thick sputum, ventilator dysynchrony Since he is a IV drug user blood cultures were obtained on 03/27: which have been negative so far 03/27: Sputum Cx GROUP G STREP Patient s/p cefepime, vancomycin and Flagyl (03/27) -given these growing group G strep in his sputum, discontinue vancomycin , cefepime and Flagyl -started on ceftriaxone and Zithromax 03/27: CTA chest Impression: No evidence of pulmonary embolus, aortic dissection, or aortic aneurysm. Extensive bilateral lower lobe airspace consolidation is suspicious for bilateral pneumonia versus possibly atelectasis, left worse than right. 03/27: CT brain No acute abnormality. No change from prior exam. 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 Overlying postoperative change of the frontal bones. (6) CVA (cerebral vascular accident): Code(s): I63.9 - Cerebral infarction, unspecified Status: Acute Assessment and Plan: Past medical history of TBI 0 5/0 8 CTA head and neck shows no significant finding Neurology consulted Speech therapy following Failed MBS on 04/02 Will repeat in 2 days No focal neurological deficits (7) Hoarseness: Code(s): R49.0 - Dysphonia Status: Acute Assessment and Plan: Voice rest Discussed with and he reported patient has right side vocal cord paralysis and will need steroids x 10 days , voice rest, speech therapy and swallow therapy for 6 months and follow up with ENT. If the issue not resolved by 6 months he might get vocal cord injection. [employer] Supervisor referral after discharge : Carlin Martinez MD Address: [address] [place] [address] Subjective Date/time seen: 04/04/25 16:14 Interval history: Patient is currently doing well. He was able to improve on his swallow eval. Currently on regular diet and thickened liquid. 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 Review of Systems Review of Systems: Unable to do ROS as patient was intubated and sedated ROS unobtainable: Yes unobtainable due to endotracheal tube and unobtainable due to mental status Exam Narrative: General: Well-built gentleman in no acute distress HEENT:? Pupils equal and reactive, sclera is clear, ETT in place Neck:? Supple Respiratory:? Clear to auscultation bilaterally, no wheezing, adequate air entry Cardiac:? S1-S2 normal, regular rate and rhythm Abdomen:? Soft, nontender nondistended, hypoactive bowel sounds Extremities:? No edema, palpable pedal pulses Neuro:? Patient intubated, sedated with Versed and propofol, on loading sedation he follows simple commands with all 4 extremities Skin:? Warm and dry, no lesions noted Psych:? Unable to assess at this time Objective Data Vital Signs Vital Signs: Vital Signs - 24 hr 04/03/25 16:35 04/03/25 18:00 04/03/25 20:00 Temperature 97.9 F Pulse Rate 78 78 67 Respiratory Rate 18 Blood Pressure 127/77 Pulse Oximetry 95 Oxygen Delivery 04/03/25 20:39 04/03/25 22:00 04/03/25 23:43 Temperature 98.2 F 98.5 F Pulse Rate 70 63 74 Respiratory Rate 18 20 Blood Pressure 125/87 108/62 Pulse Oximetry 97 98 Oxygen Delivery 04/04/25 00:00 04/04/25 01:45 04/04/25 04:00 Temperature Pulse Rate 70 70 61 Respiratory Rate Blood Pressure Pulse Oximetry Oxygen Delivery 04/04/25 04:58 04/04/25 06:00 04/04/25 07:53 Temperature 98.2 F 98.6 F Pulse Rate 78 70 76 Respiratory Rate 20 20 Blood Pressure 117/68 121/68 Pulse Oximetry 93 93 Oxygen Delivery 04/04/25 08:00 04/04/25 08:40 04/04/25 08:40 Temperature Pulse Rate 84 93 Respiratory Rate 18 Blood Pressure Pulse Oximetry 94 Oxygen Delivery Room Air 04/04/25 08:49 04/04/25 10:00 04/04/25 11:52 Temperature 97.5 F L Pulse Rate 73 83 77 Respiratory Rate 18 18 Blood Pressure 119/81 Pulse Oximetry 100 Oxygen Delivery 04/04/25 12:00 04/04/25 14:22 04/04/25 14:35 Temperature Pulse Rate 70 83 80 Respiratory Rate 20 18 Blood Pressure Pulse Oximetry Oxygen Delivery 04/04/25 15:50 Temperature 97.9 F Pulse Rate 86 Respiratory Rate 18 Blood Pressure 106/86 Pulse Oximetry 97 Oxygen Delivery Intake/Output Intake/Output: Intake & Output 04/01/25 04/02/25 04/03/25 04/04/25 23:59 23:59 23:59 23:59 Intake Total 618 200 996.7 960 Output Total 725 1050 1150 600 Balance -107 -850 -153.3 360 Meds/Results Medications: Active Medications Generic Name Dose Route Start Last Admin Trade Name Freq PRN Reason Stop Dose Admin Acetaminophen 650 mg 03/26/25 20:27 04/01/25 21:04 Acetaminophen Elixir 325 Mg/10.15 Ml Udc FEED TUBE 650 mg Q6H PRN Administration Mild Pain (1-3) or Fever Albuterol/Ipratropium 3 ml 03/28/25 08:15 04/04/25 14:21 Ipratropium 0.5 Mg/Albuterol Sulfate 2.5 Mg Ampul.Neb 3 Ml INHALATION 3 ml Q6HRT SHANE Administration Dexamethasone Sodium Phosphate 6 mg 04/04/25 09:00 04/04/25 09:40 Dexamethasone Sod Phos Inj 10 Mg/Ml 1 Ml Vial IV PUSH 04/13/25 09:01 6 mg DAILY SHANE Administration Dextrose 12.5 gm 04/03/25 10:07 Dextrose 50% 25 Gm/50 Ml Syringe IV PUSH PRN PRN Hypoglycemia Protocol Enoxaparin Sodium 40 mg 03/27/25 09:00 04/04/25 09:40 Enoxaparin 40 Mg/0.4 Ml Syringe SUB-Q 40 mg DAILY SHANE Administration Glucagon 1 mg 04/03/25 10:07 Glucagon For Inj 1 Mg Vial IM PRN PRN Hypoglycemia Protocol Glucose 15 gm 04/03/25 10:07 Glucose Oral Gel 15 Gm Of Glucse In 37.5 Gm Tube PO PRN PRN Hypoglycemia Protocol Ceftriaxone Sodium 2 gm in 100 mls @ 200 mls/hr 04/02/25 16:00 04/03/25 17:22 Rocephin 2 Gm/Ns 100 Ml IVPB 04/08/25 16:29 200 mls/hr Q24H SHANE Administration Dextrose 1,000 mls @ 100 mls/hr 04/03/25 10:05 04/04/25 06:38 Dextrose 5% 1,000 Ml IV CONT 100 mls/hr .Q10H SHANE Administration Dextrose 1,000 mls @ 100 mls/hr 04/03/25 10:07 Dextrose 5% 1,000 Ml IVPB PRN PRN Hypoglycemia Protocol Insulin Aspart 2 - 5 units 04/03/25 12:00 04/04/25 14:20 Insulin Aspart (*Bkc) 100 Units/Ml SUB-Q Not Given Q6HR SHANE Protocol Insulin Aspart 1 - 2 units 04/03/25 21:00 04/03/25 20:00 Insulin Aspart (*Bkc) 100 Units/Ml SUB-Q Not Given HS SHANE Protocol Ondansetron HCl 4 mg 04/01/25 12:02 Ondansetron Inj 4 Mg/2 Ml Vial IV PUSH Q4H PRN Nausea And Vomiting Pantoprazole Sodium 40 mg 03/27/25 09:00 04/04/25 09:39 Pantoprazole Sodium Iv 40 Mg Vial IV PUSH 40 mg QAM SHANE Administration Perflutren Lipid Microsphere 0 ml 04/03/25 10:06 Perflutren Lipid Microspheres 1.5 Ml Vial Diluted To 10 Ml Total Volume IV PUSH 04/06/25 10:06 ONCE PRN adequate visualization Protocol Radiology Results: ITS Impressions Abdomen X-Ray 03/26/25 05:30 Impression: NG tube in satisfactory position. Head CT 03/27/25 10:57 Impression: No acute abnormality. No change from prior exam. 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 Overlying postoperative change of the frontal bones. Chest CTA 03/27/25 10:58 Impression: No evidence of pulmonary embolus, aortic dissection, or aortic aneurysm. Extensive bilateral lower lobe airspace consolidation is suspicious for bilateral pneumonia versus possibly atelectasis, left worse than right. Chest X-Ray 03/31/25 06:19 Impression: Left basilar pulmonary edema/atelectasis versus pneumonia. Support tubes, as above. Head/Neck CTA 04/02/25 13:29 IMPRESSION: 1. Normal CTA head and neck. Percent stenosis per NASCET criteria is 0%. 2. Left lower lobe superior segment pneumonia. Further evaluation advised. 3. Left frontal encephalomalacia with postoperative changes in the frontal bones. Modified Barium Swallow 04/04/25 11:52 IMPRESSION: Pharyngeal dysphagia with laryngeal penetration and aspiration. Please correlate with speech pathologist findings and specific feeding recommendations. Labs Labs: Laboratory Results - last 24 hr 04/03/25 04/04/25 04/04/25 15:33 01:09 12:15 POC Capillary Glucose 85 116 H 100 Quality VTE Prophylaxis VTE prophylaxis: pharmacologic ordered Hospitalist MIPS Advance Care Plan I have confirmed that the patient's Advanced Care Plan is present, code status is documented, or surrogate decision maker is listed in patient medical record.: Yes Medication Reconciliation I have utilized all available resources to obtain, update and review the patients current medications (includes all prescriptions, OTC, herbals, cannabis, and nutritional supplements).: Yes
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
[2025-04-04] MEDS: cefTRIAXone 2 GM/NS 100 ML 2 GM/100 ML BAG IVPB (17:06)
[2025-04-04 18:57] LABS: Glucose Point of Care 142 mg/dl (65-105)
[2025-04-05] MEDS: IPRATROPIUM 0.5 MG/ALBUTEROL SULFATE 2.5 MG AMPUL.NEB 3 ML INHALATION ×3 (01:58→13:33)
--- NOTE | 2025-04-05 01:58 | PCRCNOTE ---
Pt asked to continue sleeping
[2025-04-05 05:44] VITALS: BP 119/79; PULSE 78; RESP 14; TEMP 36.9; O2SAT 99
[2025-04-05 08:12] VITALS: PULSE 75; RESP 20; O2SAT 93
[2025-04-05 08:25] VITALS: PULSE 79; RESP 20
[2025-04-05] MEDS: ENOXAPARIN 40 MG/0.4 ML SYRINGE SUB-Q (09:12)
[2025-04-05] MEDS: PANTOPRAZOLE SODIUM IV 40 MG VIAL IV PUSH (09:12)
[2025-04-05] MEDS: dexAMETHasone SOD PHOS INJ 10 MG/ML 1 ML VIAL 6 MG IV PUSH (09:12)
--- NOTE | 2025-04-05 10:17 | P.DS_ITS ---
DS: Admitting Diagnosis Discharge Date 04/05/2025 Admitting Diagnosis Drug overdose DS: Discharge Diagnosis Discharge Diagnosis (1) Overdose of sympathomimetic agent: Code(s): T44.901A - Poisoning by unspecified drugs primarily affecting the autonomic nervous system, accidental (unintentional), initial encounter Status: Acute Assessment and Plan: Patient presented after overdose on fentanyl/amphetamine -patient on sympathomimetic symptoms upon arrival -sedated with Versed and propofol -03/26: was intubated due to being combative and agitated, according the notes required 8 staff members to hold him down -03/27: The patient's girlfriend stated that that he is a IV drug user -0 7: Currently on IMU and extubated yesterday -04/02: Evidence of a raspy voice. As per patient's girlfriend previously had a normal ngo and possibly due to recent intubation. (2) On mechanically assisted ventilation: Code(s): Z99.11 - Dependence on respirator [ventilator] status Status: Acute Assessment and Plan: Patient was agitated, combative in the ER -intubated with etomidate and rocuronium -currently on CMV mode of ventilation, peep of 5, 30% FiO2 -chest x-ray and ABGs reviewed -sedation was decreased. 5/5 PSV SBT done for more than 30 minutes. RSBI, ABGI and Vitals acceptable. Patient agitated but following commands. Will extubate. NPO for now. -Extubated 03/27: CTA chest No evidence of PE, aortic dissection item aneurysm. Extensive bilateral lower lobe airspace consolidation, suspicious for bilateral pneumonia versus atelectasis, left worse than right Patient was on Cefepime, Vancomycin, and Metronidazole for suspected aspiration pneumonia (started 03/27) -status post cefepime -started on ceftriaxone and azithromycin (3) Amphetamine abuse: Code(s): F15.10 - Other stimulant abuse, uncomplicated Status: Acute Assessment and Plan: Continue benzodiazepine -counseled on cessation of amphetamine (4) Acute kidney injury: Code(s): N17.9 - Acute kidney failure, unspecified Status: Acute Assessment and Plan: RESOLVED Likely related to sympathomimetic symptoms, hypovolemia -creatinine improved and WNL -continue to monitor urine output, renal function and electrolytes (5) Sepsis: Code(s): A41.9 - Sepsis, unspecified organism Status: Acute Assessment and Plan: Fevers, thick sputum, ventilator dysynchrony Since he is a IV drug user blood cultures were obtained on 03/27: which have been negative so far 03/27: Sputum Cx GROUP G STREP Patient s/p cefepime, vancomycin and Flagyl (03/27) -given these growing group G strep in his sputum, discontinue vancomycin , cefepime and Flagyl -started on ceftriaxone and Zithromax 03/27: CTA chest Impression: No evidence of pulmonary embolus, aortic dissection, or aortic aneurysm. Extensive bilateral lower lobe airspace consolidation is suspicious for bilateral pneumonia versus possibly atelectasis, left worse than right. 03/27: CT brain No acute abnormality. No change from prior exam. 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 Overlying postoperative change of the frontal bones. (6) CVA (cerebral vascular accident): Code(s): I63.9 - Cerebral infarction, unspecified Status: Acute Assessment and Plan: Past medical history of TBI 0 5/0 8 CTA head and neck shows no significant finding Neurology consulted Speech therapy following Failed MBS on 04/02 Will repeat in 2 days No focal neurological deficits (7) Hoarseness: Code(s): R49.0 - Dysphonia Status: Acute Assessment and Plan: Voice rest Discussed with and he reported patient has right side vocal cord paralysis and will need steroids x 10 days , voice rest, speech therapy and swallow therapy for 6 months and follow up with ENT. If the issue not resolved by 6 months he might get vocal cord injection. Data Governance Consultant referral after discharge : Carlin Martinez MD Address: [address] [place] [address] DS: Summary Hospital Course Hospital Course: Ephraim Reilly is a 44 year old male with past medical history of craniotomy, sleep apnea, no other past medical history presented the ED on 03/26/2025 for fentanyl overdose, patient was in police custody when he took 2 beans of fentanyl. Patient was drowsy/somnolent, received Narcan and woke up EN route to the ER. In the ED patient had fixed and dilated pupils, conjunctival injection, drenching in sweat, combative, shaking all his extremities vigorously. Requiring 8 staff members to hold him down. Patient received multiple doses of Versed without any response. He was intubated with etomidate and rocuronium. Placed on Versed and propofol for sedation and transferred to the ICU for further management. Full cough showed acute kidney injury with creatinine 1.40, other labs are within normal limits. Mildly elevated CPK level. Chest x-ray with no acute findings. CT head with no hemorrhage, hydrocephalus or herniation. Previous fentanyl calvarial fractures seen as well as frontal encephalomalacia. EKG showed sinus rhythm, no ST elevations, depressions. Patient was given 2 L of IV fluids and transferred to the ICU for further management. Patient was intubated with CMV mode of ventilation, peep of 5, 35% FiO2. 03/27- CTA Chest c/w pneumonia, cefepime, vancomycin, and metronidazole started 03/30- Sputum culture positive for Group G Strep (susceptible to Penicillin and other beta-lactams) 0 5/0 6-patient was extubated I assumed care on 04/01/2025. On 04/01 night patient had a episode of choking and he underwent MBS which he failed. Had a long discussion with his girlfriend. As per his girlfriend patient has a history of IV drug abuse including meth and fentanyl. Patient had a TBI 2017 and [facility] Patient underwent head and neck CTA to rule out stroke which shows no significant abnormalities. Patient will undergo speech therapy and we will repeat MBS in a day or 2. Patient will be started on ceftriaxone and azithromycin due to possible left lower lobe pneumonia. I repeated the MBS on 0 04/04 in which patient was able to perform better. Patient was started on level 7) regular solids and level 4 extremely thin liquid s. Reviewed speech therapy who recommend to re-evaluate with repeat MBS in 3-4 days. I advised the patient to repeat MBS in 3-4 days but he declines and wants to be discharged. Of note patient had a raspy voice after extubation and consulted ENT. Below following recommendation from ENT: 1. Voice rest for 7 days,then Gentle voice usage until seen by medical transcriptionist 2. Steroids for 10 days. :60 mg/day prednisone for 2 day,then 40 mg per day for 2 days,then 30 mg /day for 2 days,then 20 mg /day for 2 days,then 10 mg/day for 2 days 3. PPI high dosage for at least 2 months 4. the swallow status to be evaluated by swallow study and per swallow therapist 5. Data Governance Consultant referral after discharge : Carlin Martinez MD Address: [address] [place], [place] [id number] 6.repeat consult as needed Patient is to follow-up with the speech therapy/ swallow exercise and follow-up with the ENT/medical transcriptionist On the day of discharge, the patient was seen and examined. Vital signs were stable. Physical exam were stable and labs were reviewed at length. Discharge instructions, medications, and follow-up appointments were discussed with the patient at length and all day questions were answered. ER warnings were given. Advised to get help with drug rehabilitation. Advised to follow-up with the PCP and get arranged MBS as outpatient. Patient is anxious to be discharged today. Advised the importance of following up with speech therapy and ENT/medical transcriptionist Status at Discharge Cognitive/behavioral status at discharge: Stable Time Spent with Patient Time attestation: Total time spent providing and/or coordinating discharge services: 45 minute Exam Narrative: General: Well-built gentleman in no acute distress HEENT:? Pupils equal and reactive, sclera is clear, ETT in place Neck:? Supple Respiratory:? Clear to auscultation bilaterally, no wheezing, adequate air entry Cardiac:? S1-S2 normal, regular rate and rhythm Abdomen:? Soft, nontender nondistended, hypoactive bowel sounds Extremities:? No edema, palpable pedal pulses Neuro:? Patient intubated, sedated with Versed and propofol, on loading sedation he follows simple commands with all 4 extremities Skin:? Warm and dry, no lesions noted Psych:? Unable to assess at this time DS: Data Data Completed and Pending Labs on day of discharge: Labs from last 24 hours 04/04/25 04/04/25 18:53 12:15 POC Capillary Glucose 142 H 100 Imaging Radiologist's impression: ITS Impressions Chest X-Ray 03/26/25 05:26 Impression: NG tube in the tracheobronchial tree extending to the right lower lobe. Removal and replacement required. ET tube in satisfactory position. Clear lungs otherwise. Abdomen X-Ray 03/26/25 05:27 Impression: NG tube tip above the GE junction. Further advancement by at least 13 cm recommended. Chest X-Ray 03/26/25 05:28 Impression: Clear lungs. ET tube in satisfactory position. Head CT 03/26/25 05:29 Impression: No acute abnormality seen. Probable postoperative versus posttraumatic encephalomalacia in the anterior left frontal lobe with overlying postoperative changes of the bilateral frontal bones. Correlate with surgical history. Abdomen X-Ray 03/26/25 05:30 Impression: NG tube in satisfactory position. Abdomen X-Ray 03/26/25 05:30 Impression: NG tube in satisfactory position. Chest X-Ray 03/27/25 06:12 Impression: Probable small left pleural effusion. Support tubes, as above. Chest X-Ray 03/27/25 06:22 Impression: Mild haziness left lung base, nonspecific. Correlate for minimal pulmonary edema or pneumonia. Support tubes, as above. Head CT 03/27/25 10:57 Impression: No acute abnormality. No change from prior exam. 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 Overlying postoperative change of the frontal bones. Chest CTA 03/27/25 10:58 Impression: No evidence of pulmonary embolus, aortic dissection, or aortic aneurysm. Extensive bilateral lower lobe airspace consolidation is suspicious for chidi ateral pneumonia versus possibly atelectasis, left worse than right. Chest X-Ray 03/28/25 07:15 IMPRESSION: 1. Patchy airspace opacities in the bilateral lower lung zones consistent with pneumonia. Chest X-Ray 03/29/25 07:30 IMPRESSION: Left basilar atelectasis versus pneumonia. Chest X-Ray 03/30/25 06:49 Impression: Basilar pulmonary edema/atelectasis versus possibly pneumonia. Correlate clinically. Support tubes, as above. Chest X-Ray 03/31/25 06:19 Impression: Left basilar pulmonary edema/atelectasis versus pneumonia. Support tubes, as above. Modified Barium Swallow 04/02/25 10:11 IMPRESSION: Pharyngeal dysphagia with laryngeal penetration and aspiration. Please correlate with speech pathologist findings and specific feeding recommendations. Head/Neck CTA 04/02/25 13:29 IMPRESSION: 1. Normal CTA head and neck. Percent stenosis per NASCET criteria is 0%. 2. Left lower lobe superior segment pneumonia. Further evaluation advised. 3. Left frontal encephalomalacia with postoperative changes in the frontal bones. Modified Barium Swallow 04/04/25 11:52 IMPRESSION: Pharyngeal dysphagia with laryngeal penetration and aspiration. Please correlate with speech pathologist findings and specific feeding recommendations. Discharge Plan Discharge Attending physician on discharge: Marcin Raza Consulting providers: Luis Fernando Mars; Marisel Marie Discharging Clinician: Marcin Raza Anticipated Discharge Date/Time: 04/05/25 10:27 Patient Disposition: Home Activity: as tolerated Diet: other - see discharge instructions Discharge Instructions: 1. Voice rest for 7 days,then Gentle voice usage until seen by medical transcriptionist 2. Steroids for 10 days. :60 mg/day prednisone for 2 day,then 40 mg per day for 2 days,then 30 mg /day for 2 days,then 20 mg /day for 2 days,then 10 mg/day for 2 days 3. PPI high dosage for at least 2 months 4. the swallow status to be evaluated by swallow study and per swallow therapist 5. Data Governance Consultant referral after discharge : Carlin Martinez MD Address: [address] [place] [address] Patient needs to follow with Speech Therapy and perform another Modified Barium Swallow evaluation in 3 to 5 days Patient also needs to have speech therapy for at least 6 months . Patient need close follow up with ENT/Data Governance Consultant Please have these arrangements with PCP upon discharge [facility] in [place] ([phone]), and [facility] in [place] ([phone]), should both accept your insurance. Please call to verify this prior to arranging appointment with them for your outpatient speech evaluation. Strictly recommended drug rehabilitation Check blood pressure 1 to 2 times a day. Record and bring into your doctor for review. Call your doctor if your blood pressure is greater than 180/110 or less than 90/45. Walk with cane or other assist device. Take precautions to avoid falls. Rise slowly from a lying or sitting position. Pause before standing or walking. Contact your doctor or call 911 and come to the Emergency Room if you have any type of trauma, lightheadedness with standing or other worrisome symptoms. Avoid NSAIDs (ibuprofen, naproxen, Aleve). Tylenol is safe to take. Follow-up with your primary care provider in 1-2 weeks. Please call for appointment. Follow-up with ENT, medical transcriptionist, drug addiction in 2-4 weeks. Please call for an appointment. Thank you for using [facility] for your health care needs. Patient Instructions: Antibiotic Form Patient Language: New Zealander Stand Alone Forms: General Discharge Information Follow-up/Referrals: Carlin Martinez [Other] Arleth Martinez MD [Physician] - Marisel Marie MD [Physician] - Carla Bowman, [employer] SOFTWARE DEVELOPMENT ENGINEER-C [Primary Care Provider] - Discharge Medications: New pantoprazole [Protonix] [address] for susp in packet 40 mg PO BID Qty: 60 0RF prednisone 10 mg tablet 10 mg PO DIRECTED Qty: 30 0RF Rx Instructions: see taper instructions 60 mg/day prednisone for 2 day,then 40 mg per day for 2 days,then 30 mg /day for 2 days,then 20 mg /day for 2 days,then 10 mg/day for 2 days amoxicillin-pot clavulanate 875-125 mg tablet 1 tablet PO Q12H Qty: 10 0RF Rx Instructions: Please complete the course for 5 days Other Ambulatory Orders: ST / Speech Therapy Outpatient Eval and Treat (ONCE) Timeframe: [id number] Location: Determined by Patient Ordered By: Marcin Raza XR barium swallow modified ped (Stat) Timeframe: 1 Week Location: Determined by Patient Ordered By: Marcin Raza Date of admission: 03/26/25 03:08 Primary Care Provider: Carla Bowman Admitting Provider: Cedric Ennis Attending physician on admission: Cedric Ennis Condition: Stable
[2025-04-05 13:33] VITALS: PULSE 81; RESP 20
[2025-04-05 13:45] VITALS: PULSE 82; RESP 20
== END 2025-04-05 14:20 | disposition home or self-care (01) | DRG 812 ==
LOC: ANHED 01:14 → ANHICU 03:15 → ANHIMU 03-31 20:02 → ANH3MEDSUR 04-05 10:30 → ANHIMU 04-06 08:56
PROVIDERS: Internal Medicine; Physician Assistant; Admitting Provider Hospitalist; Emergency Provider Student in an Organized Health Care Education/Training Program; PCP Clinical Nurse Specialist; Visit Provider General Practice
DX: T40.411A Poisoning by fentanyl or fentanyl analogs, accidental (unintentional), initial encounter (principal); J69.0 Pneumonitis due to inhalation of food and vomit; E86.1 Hypovolemia; F11.10 Opioid abuse, uncomplicated; G47.30 Sleep apnea, unspecified; S06.30AS Unspecified focal traumatic brain injury with loss of consciousness status unknown, sequela; X58.XXXS Exposure to other specified factors, sequela; Z87.891 Personal history of nicotine dependence
CPT/HCPCS: 31500; 36415; 36600; 70450; 70496; 70498; 71045; 71275; 80053; 80143; 80179; 80202; 80307; 81001; 82077; 82375; 82550; 82803; 82805; 82948; 83050; 83605; 83735; 84100; 84443; 85018; 85025; 85027; 85610; 85730; 87040; 87070; 87205; 87637; 87641; 92526; 92610; 92611; 93005; 93306; 94002; 94003; 94640; 96374; 96375; 97110; 97162; 97165; 97530; 99291; A9270; J0692; J0696; J1100; J1650; J1836; J2250; J2470; J2704; J3010; J3370; J7070; J7120; Q9967